=== PATIENT | female | born 1955 | race Caucasian/White ===

== ENCOUNTER 2020-02-23 15:11 | Outpatient (CLI) | payer BC, SELFPAY ==
--- NOTE | ~2020-02-23 | MM_ITS ---
EXAMINATION: MM screening [facility] BI w [facility] HISTORY: Screening mammogram TECHNIQUE: Craniocaudal and mediolateral oblique 3-D tomosynthesis images were obtained and synthetic 2-D images were generated. CAD analysis was submitted and interpreted. COMPARISON: 01/28/2019, 12/18/2017, 12/11/2016 BREAST PARENCHYMAL COMPOSITION: There are scattered areas of fibroglandular density. FINDINGS: There is no evidence of suspicious mass, calcification, or architectural distortion to sugg est malignancy in either breast. There has been no suspicious interval change. IMPRESSION: 1. No mammographic evidence of malignancy. 2. Recommend routine screening mammography in one year. BI-RADS Category 1: Negative Reviewed, dictated and finalized at location A.
== END 2020-02-23 15:12 | disposition home or self-care (01) ==
LOC: ANHIMG 15:15
PROVIDERS: PCP Family Medicine; Visit Provider Obstetrics & Gynecology
DX: Z12.31 Encounter for screening mammogram for malignant neoplasm of breast (principal)
CPT/HCPCS: 77063; 77067

== ENCOUNTER → 2020-04-27 10:17 | Outpatient (CLI) | payer BC, SELFPAY ==
--- NOTE | ~2020-04-27 | DEXA_ITS ---
Bone Density Report Name: Heather Hernandez Age: 64 Sex: Female Ethnicity: White Date of : 1955 Indication: osteopenia; height loss; hysterectomy; postmenopausal Referring Provider: JUDITH OBREGON Study: Bone densitometry was performed. Exam Date: April 27, 2020 Accession number: [id number] Bone Density: Region BMD T-score Z-score Classification AP Spine (L1-L4) 0.874 -1.6 0.1 Osteopenia Femoral Neck (Left) 0.627 -2.0 -0.5 Osteopenia Total Hip (Left) 0.844 -0.8 0.4 Normal Femoral Neck (Right) 0.607 -2.2 -0.7 Osteopenia Total Hip (Right) 0.839 -0.8 0.3 Normal Total Hip Mean 0.842 -0.8 0.4 Normal World Health Organization criteria for BMD impression classify patients as: Normal (T-score at or above -1.0), Osteopenia (T-score between -1.0 and -2.5), or Osteoporosis (T-score at or below -2.5). 10-year Fracture Risk(1): Major Osteoporotic Fracture 11% Hip Fracture 1.7% Reported Risk Factors: [place] (), Neck BMD=0.607, BMI=26.4 (1) FRAX(R) Version 3.08. Fracture probability calculated for an untreated patient. Fracture probability may be lower if the patient has received treatment. Previous Exams: Region Exam Age BMD T-score BMD Change BMD Change Date g/cm2 vs Baseline vs Previous AP Spine(L1-L4) 04/27/2020 64 0.874 -1.6 -0.020 -0.020 04/10/2018 62 0.894 -1.4 Total Hip(Left) 04/27/2020 64 0.844 -0.8 -0.038* -0.038* 04/10/2018 62 0.882 -0.5 Total Hip(Right) 04/27/2020 64 0.839 -0.8 -0.032* -0.032* 04/10/2018 62 0.871 -0.6 *Denotes significance at 95% confidence level, LSC for AP Spine = 0.022 g/cm2, LSC for Total Hip = 0.027 g/cm2 Clinical Information Provided by Patient: Has used the following medications: Vitamin D Has the following medical conditions: Hysterectomy Patient maximum height was 68 Menopause Age: 36 Does not regularly consume dairy products Drinks caffeinated beverages Onset of menses at age 16 Number of children 3 Impression: The patient has low bone mass, based on the Right Femoral Neck T-score. The patient has an estimated ten-year risk of hip fracture of 1.7% and an estimated ten-year risk of major fracture of 11%, based on the WHO FRAX algorithm. The BMD for the Total Hip(Left) decreased, changing by -0.038 since the last DXA exam. The BMD for the Total Hip(Right) decreased, changing by -0.032 since the last DXA exam. Discussion:
== END ==
PROVIDERS: PCP Family Medicine; Visit Provider Obstetrics & Gynecology
DX: M85.852 Other specified disorders of bone density and structure, left thigh (principal); M85.851 Other specified disorders of bone density and structure, right thigh
CPT/HCPCS: 77080

== ENCOUNTER → 2020-10-26 02:55 | Outpatient (CLI) | payer BC, SELFPAY ==
[2020-10-26 18:15] LABS: SARS-CoV-2 RNA PCR Negative
== END ==
PROVIDERS: PCP Family Medicine; Visit Provider Internal Medicine Cardiovascular Disease
DX: Z01.812 Encounter for preprocedural laboratory examination (principal); Z20.822 Contact with and (suspected) exposure to COVID-19
CPT/HCPCS: C9803; U0003; U0005

== ENCOUNTER 2020-10-29 01:42 | Day surgery (SDC) | payer BC, SELFPAY ==
[2020-10-29] VITALS (15 sets, daily range): BP systolic 96–131; BP diastolic 51–80; PULSE 58–99; RESP 10–23; TEMP 36.4; O2SAT 97–100; BMI 25.4
--- NOTE | 2020-10-29 07:00 | ECG_ITS ---
Measurements Intervals [place] Rate: 58 P: CA: 0 QRS: -44 QRSD: 137 T: 125 QT: 469 QTc: 463 Interpretive Statements ATRIAL FIBRILLATION WITH SLOW VENTRICULAR RESPONSE LEFT AXIS DEVIATION LEFT BUNDLE BRANCH BLOCK BASELINE ARTIFACT- V5 ABNORMAL ECG Electronically Signed On 10-29-2020 7:25:11 CDT by Ace Santos D.O.
[2020-10-29 07:42] LABS: Basophils Percent Auto 0.9 % (0.2-1.2); Eosinophils Absolute Auto 0.1 K/mm3 (0-0.3); Eosinophils Percent Auto 2.1 % (0-4.4); Hematocrit 45.7 % (37.0-47.0); Immature Granulocyte Absolute 0.02 K/mm3 (0.00-0.031); Immature Granulocyte Percent A 0.4 % (0-0.5); Lymphocytes Absolute Auto 1.22 K/mm3 (0.9-3.2); Mean Corpuscular HGB Conc 32.8 g/dl (32-36); Mean Corpuscular Hemoglobin 31.6 pg (26-34); Mean Corpuscular Volume 96.2 fl (80-100); Mean Platelet Volume 9.7 fl (7.4-10.4); Monocytes Absolute Auto 0.7 K/mm3 (0.1-0.6); Monocytes Percent Auto 13.9 % (2.6-8.5); Neutrophils Absolute Auto 2.7 K/mm3 (1.3-6.7); Neutrophils Percent Auto 56.7 % (45.5-73.1); Platelet Count Result 263 k/mm3 (150-375); Red Blood Count 4.75 M/mm3 (4.2-5.4); Red Cell Distribution Width 13.4 % (11.5-14.5); White Blood Count 4.7 K/mm3 (4.5-10.0)
[2020-10-29 07:51] LABS: Anion Gap 5 mmol/L (8-16); Blood Urea Nitrogen 13 mg/dL (7-17); Calcium 9.4 mg/dL (8.4-10.2); Carbon Dioxide 32 mmol/L (22-30); Chloride 101 mmol/L (98-107); Estimated Glomerular Filt Rate > 60; Glucose 99 mg/dL (65-105); Magnesium 2.1 mg/dL (1.6-2.3); Potassium 4.2 mmol/L (3.4-5.0); Sodium 138 mmol/L (137-145)
--- NOTE | 2020-10-29 08:58 | WPDMODSED ---
Moderate Sedation Note-Pt Data Patient Data Diagnosis: Atrial fibrillation Present Complaint: None Procedure to be performed/Plan: Transesophageal echocardiographic guidance with elective electrical cardioversion Allergies Allergy/AdvReac Type Severity Reaction Status Date / Time ampicillin Allergy Unknown Unknown Verified 03/22/20 10:36 cephalexin Allergy Unknown Unknown Verified 03/22/20 10:36 ciprofloxacin Allergy Unknown Unknown Verified 03/22/20 10:36 Penicillins Allergy Unknown Unknown Verified 03/22/20 10:36 Sulfa (Sulfonamide Allergy Unknown Unknown Verified 03/22/20 10:36 Antibiotics) sulfanilamide Allergy Unknown Unknown Verified 03/22/20 10:36 CEPHALEXIN MONOHYDRATE Allergy Unknown Unknown Uncoded 03/22/20 10:36 Home Medications Medication Instructions Recorded Confirmed Type duloxetine 60 mg capsule,delayed See Rx Instructions .ROUTE 03/12/20 10/29/20 Rx release .COMPLEX #90 cap atorvastatin 40 mg tablet 40 mg PO DAILY #90 tablet 07/24/20 10/29/20 Rx metoprolol tartrate 50 mg PO Q12H 10/29/20 10/29/20 History rivaroxaban [Xarelto] 20 mg PO QPM 10/29/20 10/29/20 History Current Medications: Active Medications Sodium Chloride (Normal Saline Iv) 1,000 mls @ 30 mls/hr IV CONT .Q24H MORAIMA Sedation/Anesthesia: No previous sedation/anesthesia problems (including family history). [facility] Past Medical History Medical History Atrial fibrillation CAD (coronary artery disease) LBBB (left bundle branch block) Family History Family History Mother Hypertension Family history of diabetes mellitus in first degree relative Family history of coronary artery disease Grandparent Cerebrovascular accident Other Family history of malignant neoplasm Social History Social History Smoking status: Never smoker Alcohol intake: never Mod Sed Physical Exam Physical Exam Pre Procedural Exam: Normal: Appearance, Eyes, Ears, Nose, Neck (Supple, normal range of motion), Throat (Posterior hypopharynx clear nonerythematous), Airway (Normal anatomy, no obstruction), Lungs (Clear to auscultation bilaterally), Heart Size, Heart Rate, Neuro Exam, Abdomen, Liver, Kidneys, Extremities and Skin and Variation: Heart Rhythm (Irregular irregular) Hours since solid foods: 12 Hours since liquid intake: 12 Internal Medicine - PN: Obj Da Vital Signs Vital Signs: Vital Signs - 24 hr 10/29/20 07:49 Temperature 36.4 C L Pulse Rate 73 Respiratory Rate 17 Blood Pressure 120/80 Pulse Oximetry 100 Meds/Results Medications: Active Medications Generic Name Dose Route Start Last Admin Trade Name Freq PRN Reason Stop Dose Admin Sodium Chloride 1,000 mls @ 30 mls/hr 10/29/20 07:00 Normal Saline Iv IV CONT .Q24H MORAIMA Labs CBC & Chem 7: 10/29/20 07:30 10/29/20 07:30 Labs: Laboratory Results - last 24 hr 10/29/20 10/29/20 07:30 07:30 WBC 4.7 RBC 4.75 Hgb 15.0 Hct 45.7 MCV 96.2 MCH 31.6 MCHC 32.8 RDW 13.4 Plt Count 263 MPV 9.7 Immature Gran % (Auto) 0.4 Neut % (Auto) 56.7 Lymph % (Auto) 26.0 Stanley % (Auto) 13.9 H Eos % (Auto) 2.1 Baso % (Auto) 0.9 Lymph # (Auto) 1.22 Stanley # (Auto) 0.7 H Eos # (Auto) 0.1 Baso # (Auto) 0.0 Abs Immat Gran (auto) 0.02 Absolute Neuts (auto) 2.7 Absolute Nucleated RBC 0.0 Nucleated RBC % 0.0 Sodium 138 Potassium 4.2 Chloride 101 Carbon Dioxide 32 H Anion Gap 5 L BUN 13 Creatinine 0.90 Estim Creat Clear Calc Not Reportable Estimated GFR > 60 Glucose 99 Calcium 9.4 Magnesium 2.1 ASA Classification/Sedation ASA Classification/Sedation ASA Class: III Emergent: No Risks: Risks, benefits and alternatives explained and patient/family accepted plan for sedation. Patient re-evaluated immediate
--- NOTE | 2020-10-29 09:07 | WPDTECDV ---
JEF with Cardioversion Date of procedure: 10/29/20 Procedure Type: Transesophageal echocardiogram guided elective electrical cardioversion Diagnosis: Atrial fibrillation Indications: Atrial fibrillation Description of Procedure: Brief history present illness: Patient is a pleasant 65-year-old female with a history of CAD, LBBB, dyslipidemia found to have new onset atrial fibrillation with rapid ventricular response referred for transesophageal echocardiogram-guided elective electrical cardioversion in attempt to restore sinus rhythm. Procedure in detail: After verbal and written informed consent was obtained the patient risks, benefits, and alternatives explained in detail the patient agreed to proceed with the plan of care as outlined above. Patient was evaluated at bedside in the [facility] procedure room. On examination, neck was supple with normal range of motion, no restrictions to opening of the oral cavity, jaw angle and posterior hypopharynx was clear. Lungs were clear to auscultation. Patient was placed in appropriate 30 to 45 degree angle in a supine, slight left lateral decubitus position. Patient was monitored throughout the study with telemetry, oxygen saturation, end-tidal CO2 monitoring, blood pressure, heart rate, and respirations. Anterior and posterior defibrillator pads placed in the appropriate positions. The posterior hypopharynx was then locally anesthetized using repeated administration of Hurricaine spray as well as gargled viscous lidocaine. After local anesthetic of the posterior hypopharynx was achieved and the oral bite block placed, moderate sedation was administered. Through the oral bite block, the transesophageal echocardiogram probe was advanced into the posterior hypopharynx and into the esophagus easily and without complication. Multiple, multiplanar echocardiographic images were obtained in multiple standard re-projections. Pulsed wave, continuous-wave, and color-flow Doppler were utilized in conjunction with this study. At the conclusion of the study, the transesophageal echocardiogram probe was removed easily and without complication. Patient tolerated the procedure well without difficulty. Patient was in atrial fibrillation throughout the study. Sedation: Moderate Sedation/Anesthesia administration: Patient denied previous intolerance or complications with anesthesia/sedation. Please see sedation note for documentation of the pre-procedure physical examination. As noted above, after adequate local anesthesia of the posterior hypopharynx was achieved, a total of mg intravenous Versed and a total of mcg intravenous Fentanyl in multiple divided doses was utilized for moderate sedation. Sedation start time was and end time was for a total of minutes [id number] intra-procedure time. Sedation was administered by a qualified observer RN under my supervision with intra-procedure [id number] observation and management throughout the entirety of the procedure. There were no other issues or complications and patient tolerated the procedure well and sedation protocol well and I was present for the entirety. Findings: FINDINGS: LEFT VENTRICLE: Size is normal. Mild concentric left ventricular hypertrophy. Mild left ventricular systolic dysfunction with paradoxical septal wall motion secondary to bundle branch block with visually estimated ejection fraction of 45-50%. RIGHT VENTRICLE: Size and systolic function were normal. LEFT ATRIUM: Mild to moderate enlargement. RIGHT ATRIUM: Normal size. INTERATRIAL SEPTUM: Interatrial septum is anatomically normal without evidence of shunt with color-flow Doppler nor with injection of agitated saline. MITRAL VALVE: Mitral valve is anatomically normal although mildly thickened with preserved leaflet excursion and mild regurgitation with at least 2 separate regurgitant jets. AORTIC VALVE: The aortic valve was an anatomically normal 3 leaflet structure with donis
--- NOTE | 2020-10-29 10:24 | ECG_ITS ---
Measurements Intervals [place] Rate: 76 P: [place]: 0 QRS: -47 QRSD: 137 T: 138 QT: 465 QTc: 526 Interpretive Statements SINUS OR ECTOPIC ATRIAL RHYTHM WITH FIRST DEGREE AV BLOCK ATRIAL TRIPLET, ATRIAL COUPLET AND ATRIAL PREMATURE COMPLEXES LEFT AXIS DEVIATION LEFT BUNDLE BRANCH BLOCK ABNORMAL ECG Electronically Signed On 10-29-2020 12:03:11 CDT by Ace Santos D.O.
== END 2020-10-29 12:00 | disposition home or self-care (01) ==
PROVIDERS: PCP Family Medicine; Visit Provider Internal Medicine Cardiovascular Disease
PROC: (CPT 93312; principal; 2020-10-29 08:30)
PROC: 5A2204Z Restoration of Cardiac Rhythm, Single (ICD-10-PCS; 2020-10-29 08:30)
DX: I48.91 Unspecified atrial fibrillation (principal); I25.10 Atherosclerotic heart disease of native coronary artery without angina pectoris; I44.7 Left bundle-branch block, unspecified; I44.1 Atrioventricular block, second degree; I34.0 Nonrheumatic mitral (valve) insufficiency; I35.1 Nonrheumatic aortic (valve) insufficiency; I36.1 Nonrheumatic tricuspid (valve) insufficiency; E78.5 Hyperlipidemia, unspecified; Z79.01 Long term (current) use of anticoagulants
CPT/HCPCS: 36415; 80048; 83735; 85025; 92960; 93005; 93312; 93320; 93325; J2250; J2310; J3010; J7040

== ENCOUNTER 2021-03-05 14:42 | Outpatient (CLI) | payer BC, SELFPAY ==
--- NOTE | ~2021-03-05 | MM_ITS ---
EXAMINATION: MM screening [facility] BI w javier HISTORY: Screening TECHNIQUE: Craniocaudal and mediolateral oblique 3-D tomosynthesis images were obtained and synthetic 2-D images were generated. CAD analysis was submitted and interpreted. COMPARISON: Comparison to multiple prior studies sequentially, with oldest reviewed study dated 11/16. BREAST PARENCHYMAL COMPOSITION: There are scattered areas of fibroglandular density. FINDINGS: There is no evidence of suspicious mass, calcification, or architectural distortion to sugg est malignancy in either breast. There has been no suspicious interval change. IMPRESSION: 1. No mammographic evidence of malignancy. 2. Recommend routine screening mammography in one year. BI-RADS Category 1: Negative Reviewed, dictated and finalized at location A.
== END 2021-03-05 14:43 | disposition home or self-care (01) ==
LOC: ANHIMG 14:45
PROVIDERS: PCP Family Medicine; Visit Provider Obstetrics & Gynecology
DX: Z12.31 Encounter for screening mammogram for malignant neoplasm of breast (principal)
CPT/HCPCS: 77063; 77067

== ENCOUNTER 2021-07-29 13:44 | Outpatient (CLI) | payer MEDICARE, SELFPAY ==
--- NOTE | ~2021-07-29 | CT_ITS ---
EXAMINATION: CT brain wo con DATE: 07/29/2021 14:09 INDICATION: Head injury. TECHNIQUE: Computed tomography (CT) of the head was performed without intravenous contrast. The mA wa s adjusted according to patient size. Iterative reconstruction technique was employed. The dose-lengt h product was 605.33 mGy-cm. COMPARISON: None FINDINGS: There is no intracranial hemorrhage, acute infarction, or abnormal intracranial mass lesion . The ventricles are normal in size. There is mild mucosal thickening in the paranasal sinuses. The m astoid air cells are normal. There are likely changes of ocular lens replacement surgeries. IMPRESSION: 1. Normal brain. Reviewed, dictated and finalized at location A. ESTRA MUSICIAN IMPRESSION: 1. Normal brain.
== END 2021-07-29 13:45 | disposition home or self-care (01) ==
PROVIDERS: PCP Family Medicine; Visit Provider Internal Medicine Cardiovascular Disease
DX: S00.93XA Contusion of unspecified part of head, initial encounter (principal)
CPT/HCPCS: 70450

== ENCOUNTER 2022-01-06 15:48 | Outpatient (CLI) | payer MEDICARE, SELFPAY ==
--- NOTE | ~2022-01-06 | XR_ITS ---
EXAMINATION: XR chest 2V 01/06/2022 16:05 INDICATION: Cough for 2 months PROCEDURE: 2 view chest COMPARISON: 05/21/2016 FINDINGS: The lungs are clear. The cardiomediastinal silhouette is within normal limits. There are no pleural effusions. There is no pneumothorax suspected. IMPRESSION: 1: NO ACUTE CARDIOPULMONARY DISEASE. Reviewed, dictated and finalized at location B.
== END 2022-01-06 15:49 | disposition home or self-care (01) ==
PROVIDERS: PCP Family Medicine; Visit Provider Nurse Practitioner Family
DX: R05.9 Cough, unspecified (principal)
CPT/HCPCS: 71046

== ENCOUNTER → 2022-02-13 14:30 | Outpatient (CLI) | payer MEDICARE, SELFPAY ==
--- NOTE | ~2022-02-13 | XR_ITS ---
XR cervical spine min 6V DATE: 02/13/2022 15:01 INDICATION: Fall 3 months ago. Neck pain. TECHNIQUE: Flexion and extension lateral views. AP, open-mouth and neutral lateral views. Efrain glass COMPARISON: None FINDINGS: C1 and C2 are normally aligned and the odontoid process is intact. There is minimal levoscoliosis of the cervical spine. Cervical curvature is intact on lateral view. No fracture or dislocation or locked facet or prevertebral soft tissue swelling. There is moderate degenerative disc disease at C4-5. There is severe degenerative disc disease at C5-6 and C6-7. No instability is evident on flexion or extension. IMPRESSION: Moderate degenerative disc disease at C4-5 and severe degenerative disease at C5-6 and C6 -7 No fracture or dislocation or cervical instability is detected Reviewed, dictated and finalized at location B. IMPRESSION: Moderate degenerative disc disease at C4-5 and severe degenerative disease at C5-6 and C6-7 No fracture or dislocation or cervical instability is detected
--- NOTE | ~2022-02-13 | XR_ITS ---
XR hip LT min 3V w AP pelvis DATE: 02/13/2022 15:01 INDICATION: Left hip pain after fall 3 months ago TECHNIQUE: AP and lateral views of left hip. AP pelvis. COMPARISON: None FINDINGS: An anchor devices are noted at the left and right pubic bones. Normal alignment at the pubic symphysis and sacroiliac joints. No pelvic fracture or bone destruction . Hip joint spaces appear symmetric and relatively well preserved. No fracture or dislocation, avascu lar necrosis or bone destruction of the left hip. Degenerative disc disease the lower lumbar spine, especially L4-5. IMPRESSION: Lumbar degenerative disc disease Postoperative change of left and right pubic bones No pelvic or left hip fracture or dislocation Reviewed, dictated and finalized at location B.
== END ==
PROVIDERS: PCP Family Medicine; Visit Provider Nurse Practitioner Family
DX: M47.812 Spondylosis without myelopathy or radiculopathy, cervical region (principal); M47.816 Spondylosis without myelopathy or radiculopathy, lumbar region; M25.552 Pain in left hip
CPT/HCPCS: 72052; 73502

== ENCOUNTER 2022-04-10 15:37 | Outpatient (CLI) | payer MEDICARE, SELFPAY ==
--- NOTE | ~2022-04-10 | XR_ITS ---
EXAMINATION: XR chest 2V 04/10/2022 15:48 INDICATION: Shortness of breath. Respiratory infection. PROCEDURE: 2 view chest COMPARISON: 01/06/2022 FINDINGS: The lungs are clear. The cardiomediastinal silhouette is within normal limits. There are no pleural effusions. There is no pneumothorax suspected. IMPRESSION: 1: NO ACUTE CARDIOPULMONARY DISEASE. Reviewed, dictated and finalized at location A. 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
== END 2022-04-10 15:38 | disposition home or self-care (01) ==
LOC: ANHIMG 15:39
PROVIDERS: PCP Family Medicine; Visit Provider Family Medicine
DX: R06.02 Shortness of breath (principal)
CPT/HCPCS: 71046

== ENCOUNTER → 2022-04-14 14:38 | Outpatient (CLI) | payer MEDICARE, SELFPAY ==
--- NOTE | ~2022-04-14 | MM_ITS ---
EXAMINATION: MM screening [facility] BI w javier HISTORY: Screening mammogram TECHNIQUE: Craniocaudal and mediolateral oblique 3-D tomosynthesis images were obtained and synthetic 2-D images were generated. CAD analysis was submitted and interpreted. COMPARISON: 03/05/2021, 02/23/2020, 01/28/2019 bilateral screening mammogram examinations BREAST PARENCHYMAL COMPOSITION: There are scattered areas of fibroglandular density. FINDINGS: There is no evidence of suspicious mass, calcification, or architectural distortion to sugg est malignancy in either breast. There has been no suspicious interval change. IMPRESSION: 1. No mammographic evidence of malignancy. 2. Recommend routine screening mammography in one year. BI-RADS Category 1: Negative Reviewed, dictated and finalized at location A. D STAFF
== END ==
PROVIDERS: PCP Family Medicine; Visit Provider Nurse Practitioner Family
DX: Z12.31 Encounter for screening mammogram for malignant neoplasm of breast (principal)
CPT/HCPCS: 77063; 77067

== ENCOUNTER → 2022-09-19 15:00 | Outpatient (CLI) | payer MEDICARE, SELFPAY ==
--- NOTE | ~2022-09-19 | US_ITS ---
EXAMINATION: US venous doppler [facility] DATE: 09/19/2022 15:26 INDICATION: Lower limb pain and swelling TECHNIQUE: Grayscale ultrasound images without and with compression and Doppler ultrasound images of the bilateral lower extremity veins were obtained. COMPARISON: None. FINDINGS: The visualized portions of right common femoral vein, profunda (deep) femoral vein, femoral vein, pop liteal vein, posterior tibial veins, peroneal veins, gastrocnemius vein and greater saphenous vein ou tflow are patent. The visualized portions of left common femoral vein, profunda femoral vein, femoral vein, popliteal v ein, posterior tibial veins, peroneal veins, gastrocnemius vein and greater saphenous vein outflow ar e patent. IMPRESSION: 1. No deep venous thrombosis in either lower limb. Reviewed, dictated and finalized at location A.
== END ==
PROVIDERS: PCP Family Medicine; Visit Provider Internal Medicine Cardiovascular Disease
DX: R06.02 Shortness of breath (principal); M79.604 Pain in right leg; M79.605 Pain in left leg
CPT/HCPCS: 93970

== ENCOUNTER 2022-09-22 09:28 | Day surgery (SDC) | payer MEDICARE, SELFPAY ==
[2022-09-19 12:03] VITALS: BMI 33.7
[2022-09-22] VITALS (10 sets, daily range): BP systolic 98–140; BP diastolic 56–74; PULSE 65–82; RESP 14–20; TEMP 36.9; O2SAT 97–100; BMI 34.7
--- NOTE | 2022-09-22 09:30 | ECG_ITS ---
Measurements Intervals [place] Rate: 80 P: -27 VT: 223 QRS: 145 QRSD: 152 T: 101 QT: 463 QTc: 537 Interpretive Statements ELECTRONIC VENTRICULAR PACEMAKER VENTRICULAR PREMATURE COMPLEX BASELINE ARTIFACT- I, II, III, AVR, AVL, AVF, V4 NO FURTHER INTERPRETATION IS POSSIBLE ATYPICAL ECG COMPARED TO ECG 10/29/2020 10:31:30 ELECTRONIC VENTRICULAR RPACEMAKER NOW PRESENT Electronically Signed On 09-22-2022 10:32:18 CDT by Ace Santos D.O.
--- NOTE | 2022-09-22 09:30 | ECG_ITS ---
Measurements Intervals [place] Rate: 62 P: -33 PA: 194 QRS: 150 QRSD: 160 T: 91 QT: 490 QTc: 500 Interpretive Statements ELECTRONIC ATRIAL PACEMAKER WITH INHIBITION ELECTRONIC VENTRICULAR PACEMAKER NO FURTHER INTERPRETATION IS POSSIBLE ATYPICAL ECG COMPARED TO ECG 09/22/2022 09:52:22 NO SIGNIFICANT CHANGES Electronically Signed On 09-22-2022 12:01:39 CDT by Ace Santos D.O.
[2022-09-22 10:37] LABS: Anion Gap 5 mmol/L (8-16); Blood Urea Nitrogen 10 mg/dL (7-17); Calcium 8.8 mg/dL (8.4-10.2); Carbon Dioxide 30 mmol/L (22-30); Chloride 104 mmol/L (98-107); Estimated CRCL calculation 82 ml/min; Estimated Glomerular Filt Rate > 60; Glucose 91 mg/dL (65-110); Magnesium 2.2 mg/dL (1.6-2.3); Sodium 139 mmol/L (137-145)
--- NOTE | 2022-09-22 11:00 | SUR.PREOP ---
Rep at bedside for device check. Disscussed with Dr. Forte
--- NOTE | 2022-09-22 11:05 | WPDHPUPDATE1 ---
History and Physical Update Update Date/Time: 09/22/22 11:05 History and Physical has been reviewed, including an updated exam of the patient. There are NO changes in the patient's condition. Risks, benefits, and alternatives have been discussed and questions answered. Patient agrees to proceed with procedure.
--- NOTE | 2022-09-22 11:11 | WPDMODSED ---
Moderate Sedation Note-Pt Data Patient Data Diagnosis: Persistent atrial fibrillation Present Complaint: None Procedure to be performed/Plan: Elective electrical cardioversion Allergies Allergy/AdvReac Type Severity Reaction Status Date / Time ampicillin Allergy Unknown Unknown Verified 09/19/22 12:22 cephalexin Allergy Unknown Unknown Verified 09/19/22 12:22 ciprofloxacin Allergy Unknown Unknown Verified 09/19/22 12:22 Penicillins Allergy Unknown Unknown Verified 09/19/22 12:22 Sulfa (Sulfonamide Allergy Unknown Unknown Verified 09/19/22 12:22 Antibiotics) sulfanilamide Allergy Unknown Unknown Verified 09/19/22 12:22 metoprolol AdvReac Intermediate lethargic Verified 09/19/22 12:22 CEPHALEXIN MONOHYDRATE Allergy Unknown Unknown Uncoded 04/10/22 14:48 Home Medications Medication Instructions Recorded Confirmed Type rivaroxaban 20 mg tablet (Xarelto) 20 mg PO QPM 10/29/20 09/22/22 History calcium carb 300 mg-D3 800 1 tablet PO DAILY 02/13/22 09/22/22 History unit-mag ox 25 mg-advertising copywriter 0.5 mg-jarrett-Zn tablet (Caltrate + D3 Plus Minerals) carvedilol 3.125 mg tablet (Coreg) 6.25 mg PO Q12H 04/10/22 09/22/22 History amiodarone 400 mg tablet 400 mg PO BID 09/19/22 09/22/22 History atorvastatin 40 mg tablet 40 mg PO DAILY 09/19/22 09/22/22 History Current Medications: Active Medications Sodium Chloride (Normal Saline Iv) 1,000 mls @ 30 mls/hr IV CONT .Q24H MORAIMA Sedation/Anesthesia: No previous sedation/anesthesia problems (including family history). [facility] Past Medical History Medical History Adult BMI 31.0-31.9 kg/sq m Atrial fibrillation BMI 26.0-26.9,adult BMI 27.0-27.9,adult CAD (coronary artery disease) LBBB (left bundle branch block) Overweight with body mass index (BMI) of 28 to 28.9 in adult Surgical History Surgical History Hx of cataract surgery Apr 2021 Family History Family History Mother Hypertension Family history of diabetes mellitus in first degree relative Family history of coronary artery disease Atrial fibrillation Grandparent Cerebrovascular accident Father Depression Sibling Atrial fibrillation Other Family history of malignant neoplasm Social History Social History Smoking status: Never smoker Second hand tobacco smoke exposure: No Alcohol intake: former Alcohol use details: once per year Substance use: never Substance use type: does not use Lack of Transportation: No Lack of Food: Never True Current Housing: I Have Housing Concerned About Future Housing: No Difficulty Paying Gas/Electric Bills: No Difficulty Paying for Meds: No Currently Unemployed: No Education: Associate Degree Difficulty w/ Childcare or Family Care: No Living arrangements: with family Occupation/Education: retired 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 Gender identity (if verbalized by the patient): Female Spiritual care concerns: No Mod Sed Physical Exam Physical Exam Pre Procedural Exam: Normal: Appearance, Eyes, Ears, Nose, Neck (Supple, normal range of motion), Throat (Posterior hypopharynx clear, nonerythematous), Airway (Normal anatomy, no obstruction), Lungs (Clear to auscultation bilaterally no rales or wheezes), Heart Size, Heart Rate (Regular rhythm), Heart Rhythm, Neuro Exam, Abdomen, Liver, Extremities (Palpable left anterior chest wall subcutaneous device) and Skin Hours since solid foods: 12 Hours since liquid intake: 12 Mallampati Classification: class III Internal Medicine - PN: Obj Da Vital Signs Vital Signs: Vital Signs - 24 hr 09/22/22 10:37 Temperature 36.9 C Pulse Rate 80 Respiratory Rate 19 Blood Pressure 129/74 Pulse Oximetry 100 Oxygen Delivery Room Air
--- NOTE | 2022-09-22 11:13 | WPDCARDVER ---
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 Persistence of atrial fibrillation with biventricular pacing was confirmed at bedside by device interrogation with device medical collections representative. Procedure in detail: After verbal and written informed consent was obtained the patient risks, benefits, and alternatives explained in detail the patient agreed to proceed with the plan of care as outlined above. Patient was evaluated at bedside in the [facility] procedure room. On examination, neck was supple with normal range of motion, no restrictions to opening of the oral cavity, jaw angle and posterior hypopharynx was clear. Lungs were clear to auscultation. Patient was placed in appropriate 30 to 45 degree angle in a supine position. Patient was monitored throughout the study with telemetry, oxygen saturation, end-tidal CO2 monitoring, blood pressure, heart rate, and respirations. Anterior and posterior defibrillator pads placed in the appropriate positions. After confirmation of adequate sedation electrical cardioversion was carried out without complication. Patient tolerated the procedure well without difficulty. Sedation: Moderate Sedation/Anesthesia administration: Patient denied previous intolerance or complications with anesthesia/sedation. Please see sedation note for documentation of the pre-procedure physical examination. A total of 3mg intravenous Versed and a total of 50mcg intravenous Fentanyl in multiple divided doses was utilized for moderate sedation. Sedation start time was 1119 and end time was 1136 for a total of 17 minutes [id number] intra-procedure time. Sedation was administered by a qualified observer lEaina Rodriguez RN under my supervision with intra-procedure [id number] observation and management throughout the entirety of the procedure. There were no other issues or complications and patient tolerated the procedure well and sedation protocol well and I was present for the entirety. Findings: Elective electrical cardioversion: After confirmation of adequate sedation and persistence of atrial fibrillation as also confirmed at bedside with pacemaker interrogation with device medical collections representative, 200 joules synched biphasic energy x1 was delivered with immediate sabianist of sinus rhythm evidence by atrial and biventricular pacing. Twelve lead EKG was obtained postprocedure confirming atrial paced and biventricular electronic paced rhythm. Post cardioversion device interrogation showed normal device function. Pacing set to 70 beats per minute.. Complications: None Conclusion: Successful sabianist of sinus rhythm status post 200 joules synched biphasic energy x1. Electronic atrial paced and electronic biventricular paced rhythm cardioversion and confirmed by device interrogation. Recommendations: Continue current medical therapy. Continue systemic anticoagulation without interruption for at least 30 days or until otherwise advised.
== END 2022-09-22 12:41 | disposition home or self-care (01) ==
PROVIDERS: PCP Family Medicine; Visit Provider Internal Medicine Cardiovascular Disease
PROC: 5A2204Z Restoration of Cardiac Rhythm, Single (ICD-10-PCS; principal; 2022-09-22 11:00)
DX: I48.19 Other persistent atrial fibrillation (principal); I25.10 Atherosclerotic heart disease of native coronary artery without angina pectoris; I44.7 Left bundle-branch block, unspecified
CPT/HCPCS: 36415; 80048; 83735; 92960; J2250; J3010; J7030

== ENCOUNTER → 2022-10-23 08:15 | Outpatient (CLI) | payer MEDICARE, SELFPAY ==
--- NOTE | ~2022-10-23 | US_ITS ---
Abdominal Sonogram: Real-time sonographic imaging of the abdomen was performed. Clinical History: Abdominal pain Findings: The liver appears normal with no evidence of mass lesion or bile duct dilatation. Main por celestine vein demonstrates normal direction of flow. The spleen is normal in size without evidence of foca l lesion. The gallbladder is well distended, and appears normal with no evidence of gallstone or wal l thickening. The common bile duct measures 3 mm. The visualized pancreas, aorta, and IVC are unrema rkable. The right kidney measures 11.2 cm in length and the left kidney measures 11.3 cm. There is no hydronephrosis or renal calculus. Impression: Unremarkable abdominal ultrasound. Reviewed, dictated and finalized at location . Impression: Unremarkable abdominal ultrasound.
== END ==
PROVIDERS: PCP Nurse Practitioner Family; Visit Provider Nurse Practitioner Family
DX: R10.13 Epigastric pain (principal)
CPT/HCPCS: 76700

== ENCOUNTER 2022-11-03 08:24 | Outpatient (CLI) | payer MEDICARE, SELFPAY ==
--- NOTE | ~2022-11-03 | CT_ITS ---
EXAMINATION: CT abdomen w con DATE: 11/03/2022 08:56 INDICATION: Epigastric pain TECHNIQUE: Computed tomography (CT) of the abdomen and pelvis was performed with 100 cc Omnipaque 350 intravenous contrast. The dose-length product was 532.95 mGy-cm. Automated exposure control and iter ative reconstruction technique were employed. COMPARISON: CT dated 01/18/2019 FINDINGS: There is dependent atelectasis. Cardiomegaly. No significant pleural or pericardial effusio n. Nonobstructive bowel pattern. No significant vascular abnormality. No lymphadenopathy. The liver, spleen, pancreas, adrenal glands and kidneys are unremarkable. Gallbladder is present. Small fat-cont aining umbilical hernia. There is mild-moderate lower thoracic and lumbar spondylosis. No free air or free fluid. IMPRESSION: 1. No acute abdominal abnormality. Reviewed, dictated and finalized at location []
[2022-11-03 08:48] LABS: Estimated Glomerular Filt Rate 55
== END 2022-11-03 08:25 | disposition home or self-care (01) ==
PROVIDERS: PCP Nurse Practitioner Family; Visit Provider Nurse Practitioner Family
DX: R10.13 Epigastric pain (principal)
CPT/HCPCS: 74160; Q9967

== ENCOUNTER 2022-11-10 15:18 | Outpatient (CLI) | payer MEDICARE, SELFPAY ==
--- NOTE | ~2022-11-10 | XR_ITS ---
EXAMINATION: XR chest 2V Exam Date/Time: 11/10/2022 15:35 CDT HISTORY: SHORTNESS OF BREATH UPON EXERTION Comparison: 04/10/2022. RESULT: Lines, tubes, and devices: Left chest pacer with intact leads. Lungs and pleura: Clear. Cardiomediastinal silhouette: Stable. Calcified hilar nodes. Other: No acute osseous or upper abdominal finding. IMPRESSION: No acute cardiopulmonary process. Reviewed, dictated and finalized at location K.
== END 2022-11-10 15:19 | disposition home or self-care (01) ==
PROVIDERS: PCP Nurse Practitioner Family; Visit Provider Nurse Practitioner Adult Health
DX: R06.02 Shortness of breath (principal)
CPT/HCPCS: 71046

== ENCOUNTER 2023-01-23 02:30 | Day surgery (SDC) | payer MEDICARE, SELFPAY ==
[2023-01-15 12:58] VITALS: BMI 34.9
--- NOTE | 2023-01-22 13:45 | PM.HPGS ---
History of Present Illness History of Present Illness Consent: Risks, benefits, and alternatives have been discussed and questions answered. Patient agrees to proceed with procedure. Chief complaint: epigastric pain Narrative: Heather Hernandez is a 67 year old female referred for investigation of epigastric pain. For several months she has had pain in the epigastric area. She also gets full quite easily. Review of Systems Review of Systems: All systems reviewed & are unremarkable except as noted in HPI and below PMFSH Past Medical History Medical History Adult BMI 31.0-31.9 kg/sq m Atrial fibrillation BMI 26.0-26.9,adult BMI 27.0-27.9,adult BMI 34.0-34.9,adult BMI greater than 30 CAD (coronary artery disease) H/O cardiac pacemaker LBBB (left bundle branch block) Overweight with body mass index (BMI) of 28 to 28.9 in adult Surgical History Surgical History Hx of cataract surgery Apr 2021 Family History Family History Mother Hypertension Family history of diabetes mellitus in first degree relative Family history of coronary artery disease Atrial fibrillation Grandparent Cerebrovascular accident Father Depression Sibling Atrial fibrillation Other Family history of malignant neoplasm Social History Social History Smoking status: Never smoker Second hand tobacco smoke exposure: No Alcohol intake: current Alcohol use details: once per year Substance use: never Substance use type: does not use Lack of Transportation: No Lack of Food: Never True Current Housing: I Have Housing Concerned About Future Housing: No Difficulty Paying Gas/Electric Bills: No Difficulty Paying for Meds: No Currently Unemployed: No Education: Associate Degree Difficulty w/ Childcare or Family Care: No Living arrangements: with family Occupation/Education: retired 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 Gender identity (if verbalized by the patient): Female Spiritual care concerns: No Meds Home Medications and Allergies Home Medications Medication Instructions Recorded Confirmed Type rivaroxaban 20 mg tablet (Xarelto) 20 mg PO DAILY 10/29/20 01/23/23 History calcium carb 300 mg-D3 20 mcg-mag 1 tablet PO DAILY 02/13/22 01/15/23 History ox 25 mg-copper miner 0.5 ys-pbah-emob tablet (Caltrate-D3 Plus Minerals) atorvastatin 40 mg tablet 40 mg PO DAILY 09/19/22 01/15/23 History carvedilol 6.25 mg tablet 6.25 mg PO BID 01/15/23 01/23/23 History Allergies Allergy/AdvReac Type Severity Reaction Status Date / Time metoprolol Allergy Intermediate lethargic Verified 01/23/23 07:43 ampicillin Allergy Unknown Unknown Verified 01/23/23 07:43 cephalexin Allergy Unknown Unknown Verified 01/23/23 07:43 ciprofloxacin Allergy Unknown Unknown Verified 01/23/23 07:43 Penicillins Allergy Unknown Unknown Verified 01/23/23 07:43 Sulfa (Sulfonamide Allergy Unknown Unknown Verified 01/23/23 07:43 Antibiotics) sulfanilamide Allergy Unknown Unknown Verified 01/23/23 07:43 Exam Const: General: alert Orientation/consciousness: patient oriented x3 Resp: Auscultation: clear to auscultation bilaterally Cardio: Rhythm: regular rhythm GI: GI Palp: Yes Soft to palpation and No Tenderness to palpation present (GI) Neuro: General: patient oriented x3 Assessment and Plan Assessment and plan (1) Epigastric abdominal pain: Code(s): R10.13 - Epigastric pain Status: Acute Assessment and Plan: EGD with possible biopsy or dilatation or cautery.
[2023-01-23 07:44] VITALS: BP 123/69; PULSE 70; RESP 16; TEMP 36; O2SAT 97
[2023-01-23] MEDS: LACTATED RINGERS 1,000 ML 150 ML IV CONT (08:02)
--- NOTE | 2023-01-23 08:36 | WPDANESEPPF ---
Anes - Initial Pre Proc Eval Procedure: Operation Date: 01/23/23 09:00 Proposed Procedures p Esophagogastroduodenoscopy - Omid Fraser MD Date/Time: 01/23/23 08:36 Surgeon: Omid Fraser MD Pre Op Diagnosis: epigastric pain Patient Data Age: 67 Gender: F Height: 1.7 m Weight: 99.8 kg Last Vital Signs Temp 96.8 F L 01/23/23 07:44 Pulse 70 01/23/23 07:44 Resp 16 01/23/23 07:44 BP 123/69 01/23/23 07:44 Pulse Ox 97 01/23/23 07:44 O2 Del Method Room Air 01/23/23 07:44 Allergies Allergy/AdvReac Type Severity Reaction Status Date / Time metoprolol Allergy Intermediate lethargic Verified 01/23/23 07:43 ampicillin Allergy Unknown Unknown Verified 01/23/23 07:43 cephalexin Allergy Unknown Unknown Verified 01/23/23 07:43 ciprofloxacin Allergy Unknown Unknown Verified 01/23/23 07:43 Penicillins Allergy Unknown Unknown Verified 01/23/23 07:43 Sulfa (Sulfonamide Allergy Unknown Unknown Verified 01/23/23 07:43 Antibiotics) sulfanilamide Allergy Unknown Unknown Verified 01/23/23 07:43 Home Medications Medication Instructions Recorded Confirmed Type rivaroxaban 20 mg tablet (Xarelto) 20 mg PO DAILY 10/29/20 01/23/23 History calcium carb 300 mg-D3 20 mcg-mag 1 tablet PO DAILY 02/13/22 01/15/23 History ox 25 mg-coppersmith apprentice 0.5 vi-musi-ifgy tablet (Caltrate-D3 Plus Minerals) atorvastatin 40 mg tablet 40 mg PO DAILY 09/19/22 01/15/23 History carvedilol 6.25 mg tablet 6.25 mg PO BID 01/15/23 01/23/23 History Patient hx anesthesia problems: none Family hx anesthesia problems: none Results Review: All pre-operative results and documents have been reviewed as part of the pre-operative evaluation. [facility] Past Medical History Medical History Adult BMI 31.0-31.9 kg/sq m Atrial fibrillation BMI 26.0-26.9,adult BMI 27.0-27.9,adult BMI 34.0-34.9,adult BMI greater than 30 CAD (coronary artery disease) H/O cardiac pacemaker LBBB (left bundle branch block) Overweight with body mass index (BMI) of 28 to 28.9 in adult Surgical History Surgical History Hx of cataract surgery Apr 2021 Family History Family History Mother Hypertension Family history of diabetes mellitus in first degree relative Family history of coronary artery disease Atrial fibrillation Grandparent Cerebrovascular accident Father Depression Sibling Atrial fibrillation Other Family history of malignant neoplasm Social History Social History Smoking status: Never smoker Second hand tobacco smoke exposure: No Alcohol intake: current Alcohol use details: once per year Substance use: never Substance use type: does not use Lack of Transportation: No Lack of Food: Never True Current Housing: I Have Housing Concerned About Future Housing: No Difficulty Paying Gas/Electric Bills: No Difficulty Paying for Meds: No Currently Unemployed: No Education: Associate Degree Difficulty w/ Childcare or Family Care: No Living arrangements: with family Occupation/Education: retired 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 Informed Consent: The patient's anesth
[2023-01-23 09:04] VITALS: BP 101/54; PULSE 70; RESP 18; O2SAT 96
[2023-01-23 09:14] VITALS: BP 114/65; PULSE 70; RESP 18; O2SAT 97
[2023-01-23 09:24] VITALS: BP 119/63; PULSE 70; RESP 18; O2SAT 100
== END 2023-01-23 09:35 | disposition home or self-care (01) ==
PROVIDERS: PCP Family Medicine; Visit Provider Internal Medicine Gastroenterology
PROC: 0DJ08ZZ Inspection of Upper Intestinal Tract, Via Natural or Artificial Opening Endoscopic (ICD-10-PCS; CPT 43235; principal; 2023-01-23 09:00)
DX: K21.9 Gastro-esophageal reflux disease without esophagitis (principal); K44.9 Diaphragmatic hernia without obstruction or gangrene; I48.91 Unspecified atrial fibrillation; I25.10 Atherosclerotic heart disease of native coronary artery without angina pectoris; I44.7 Left bundle-branch block, unspecified; Z79.01 Long term (current) use of anticoagulants
CPT/HCPCS: 43239; 87081; 88305; J2704; J7120

== ENCOUNTER 2023-03-30 00:52 | Day surgery (SDC) | payer MEDICARE, SELFPAY ==
[2023-03-30] VITALS (10 sets, daily range): BP systolic 103–138; BP diastolic 61–82; PULSE 70–80; RESP 12–16; TEMP 36.9; O2SAT 94–100; BMI 34.7
--- NOTE | 2023-03-30 10:00 | ECG_ITS ---
Measurements Intervals [place] Rate: 81 P: [place]: 0 QRS: 139 QRSD: 153 T: 108 QT: 468 QTc: 547 Interpretive Statements ELECTRONIC VENTRICULAR PACEMAKER VENTRICULAR PREMATURE COMPLEX NO FURTHER INTERPRETATION IS POSSIBLE ATYPICAL ECG COMPARED TO ECG 09/22/2022 11:38:56 NO SIGNIFICANT CHANGES Electronically Signed On 03-30-2023 10:27:58 FINGERNAIL FORMER by Ace Santos D.O.
[2023-03-30 10:48] LABS: Anion Gap 7 mmol/L (8-16); Blood Urea Nitrogen 12 mg/dL (7-17); Carbon Dioxide 28 mmol/L (22-30); Chloride 104 mmol/L (98-107); Estimated CRCL calculation 73 ml/min; Estimated Glomerular Filt Rate > 60; Glucose 87 mg/dL (65-110); Magnesium 2.2 mg/dL (1.6-2.3); Sodium 139 mmol/L (137-145)
--- NOTE | 2023-03-30 11:15 | WPDHPUPDATE1 ---
History and Physical Update Update Date/Time: 03/30/23 11:15 History and Physical has been reviewed, including an updated exam of the patient. There are NO changes in the patient's condition. Risks, benefits, and alternatives have been discussed and questions answered. Patient agrees to proceed with procedure.
--- NOTE | 2023-03-30 11:16 | WPDMODSED ---
Moderate Sedation Note-Pt Data Patient Data Diagnosis: Atrial flutter and history of atrial fibrillation Present Complaint: None Procedure to be performed/Plan: Elective electrical cardioversion Allergies Allergy/AdvReac Type Severity Reaction Status Date / Time ampicillin Allergy Unknown Unknown Verified 03/30/23 10:13 cephalexin Allergy Unknown Unknown Verified 03/30/23 10:13 ciprofloxacin Allergy Unknown Unknown Verified 03/30/23 10:13 Penicillins Allergy Unknown Unknown Verified 03/30/23 10:13 Sulfa (Sulfonamide Allergy Unknown Unknown Verified 03/30/23 10:13 Antibiotics) metoprolol AdvReac Intermediate lethargic Verified 03/30/23 10:13 Home Medications Medication Instructions Recorded Confirmed Type rivaroxaban 20 mg tablet (Xarelto) 20 mg PO DAILY 10/29/20 03/30/23 History calcium carb 300 mg-D3 20 mcg-mag 1 tablet PO DAILY 02/13/22 03/30/23 History ox 25 mg-copy clerk 0.5 oa-vtic-vhcy tablet (Caltrate-D3 Plus Minerals) atorvastatin 40 mg tablet 40 mg PO DAILY 09/19/22 03/30/23 History carvedilol 6.25 mg tablet 6.25 mg PO BID 01/15/23 03/30/23 History Current Medications: Active Medications Sodium Chloride (Normal Saline Iv) 1,000 mls @ 30 mls/hr IV CONT .Q24H MORAIMA Sedation/Anesthesia: No previous sedation/anesthesia problems (including family history). [facility] Past Medical History Medical History Adult BMI 31.0-31.9 kg/sq m Atrial fibrillation BMI 26.0-26.9,adult BMI 27.0-27.9,adult BMI 34.0-34.9,adult BMI greater than 30 CAD (coronary artery disease) H/O cardiac pacemaker LBBB (left bundle branch block) Overweight with body mass index (BMI) of 28 to 28.9 in adult Surgical History Surgical History Hx of cataract surgery Apr 2021 Family History Family History Mother Hypertension Family history of diabetes mellitus in first degree relative Family history of coronary artery disease Atrial fibrillation Grandparent Cerebrovascular accident Father Depression Sibling Atrial fibrillation Other Family history of malignant neoplasm Social History Social History Smoking status: Never smoker Second hand tobacco smoke exposure: No Alcohol intake: never Alcohol use details: previous hx of 1-2 per year Substance use: never Substance use type: does not use Lack of Transportation: No Lack of Food: Never True Current Housing: I Have Housing Concerned About Future Housing: No Difficulty Paying Gas/Electric Bills: No Difficulty Paying for Meds: No Currently Unemployed: No Education: Associate Degree Difficulty w/ Childcare or Family Care: No Living arrangements: with family Occupation/Education: retired 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 Gender identity (if verbalized by the patient): Female Spiritual care concerns: No Mod Sed Physical Exam Physical Exam Pre Procedural Exam: Normal: Appearance, Eyes, Ears, Nose, Neck (Supple, normal range of motion), Throat (Posterior hypopharynx clear, nonerythematous), Airway (Normal anatomy, no obstruction), Lungs (Clear to auscultation bilaterally), Heart Size, Heart Rate, Heart Rhythm, Neuro Exam, Abdomen, Liver, Extremities (Palpable subcutaneous device left anterior chest wall) and Skin Hours since solid foods: 12 Hours since liquid intake: 12 Mallampati Classification: class III Internal Medicine - PN: Obj Da Vital Signs Vital Signs: Vital Signs - 24 hr 03/30/23 10:35 Temperature 36.9 C Pulse Rate 80 Respiratory Rate 16 Blood Pressure 126/73 Pulse Oximetry 98 Oxygen Delivery Room Air Meds/Results Medications: Active Medications Generic Name Dose Route Start Last Admin Trade Name Freq PRN Reason Stop Dose Admin Sodium Chlo
--- NOTE | 2023-03-30 11:30 | ECG_ITS ---
Measurements Intervals [place] Rate: 71 P: -56 [place]: 196 QRS: 138 QRSD: 155 T: 89 QT: 501 QTc: 546 Interpretive Statements ELECTRONIC ATRIAL PACEMAKER ELECTRONIC VENTRICULAR PACEMAKER NO FURTHER INTERPRETATION IS POSSIBLE ATYPICAL ECG COMPARED TO ECG 03/30/2023 10:09:39 NO SIGNIFICANT CHANGES Electronically Signed On 03-30-2023 12:04:29 GARMENT MANUFACTURER by Ace Santos D.O.
--- NOTE | 2023-03-30 11:33 | WPDCARDVER ---
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 Procedure in detail: After verbal and written informed consent was obtained the patient risks, benefits, and alternatives explained in detail the patient agreed to proceed with the plan of care as outlined above. Patient was evaluated at bedside in the [facility] room. Prior to proceeding with cardioversion, attempts to terminate atrial flutter were made by over pacing through her device which were unsuccessful. As such, decision was made to proceed with cardioversion. On examination, neck was supple with normal range of motion, no restrictions to opening of the oral cavity, jaw angle and posterior hypopharynx was clear. Lungs were clear to auscultation. Patient was placed in appropriate 30 to 45 degree angle in a supine position. Patient was monitored throughout the study with telemetry, oxygen saturation, end-tidal CO2 monitoring, blood pressure, heart rate, and respirations. Anterior and posterior defibrillator pads placed in the appropriate positions avoiding her subcutaneous left device in the left anterior chest wall. After confirmation of adequate sedation electrical cardioversion was carried out without complication. Patient tolerated the procedure well without difficulty. Sedation: Moderate Sedation/Anesthesia administration: Patient denied previous intolerance or complications with anesthesia/sedation. Please see sedation note for documentation of the pre-procedure physical examination. A total of 3mg intravenous Versed and a total of 75mcg intravenous Fentanyl in multiple divided doses was utilized for moderate sedation. Sedation start time was 1122 and end time was 1130 for a total of 8 minutes [id number] intra-procedure time. Sedation was administered by a qualified observer Daisy Romero RN under my supervision with intra-procedure [id number] observation and management throughout the entirety of the procedure. There were no other issues or complications and patient tolerated the procedure well and sedation protocol well and I was present for the entirety. Findings: Elective electrical cardioversion: After confirmation of adequate sedation and persistence of atrial flutter as evidenced on simultaneous device interrogation, 200 joules synched biphasic energy x1 was delivered with immediate roman catholic of sinus rhythm as evidence by atrial paced and biventricular paced rhythm on interrogation and confirmation by 12 lead EKG was obtained postprocedure confirming atrial and ventricular paced rhythm. Complications: None Conclusion: Successful roman catholic of sinus rhythm status post 200 joules synched biphasic energy x1. Post cardioversion interrogation of her CHILDHOOD TEACHER pacemaker device revealed normal function along with electronic atrial and electronic ventricular biventricular paced rhythm. No other settings were changed at this time. Device was function normally. Continue systemic anticoagulation and current medical therapy without change. She is not to interrupt systemic anticoagulation unless advised and particularly for the next 30 days post cardioversion to reduce embolic stroke risk.
== END 2023-03-30 12:45 | disposition home or self-care (01) ==
PROVIDERS: PCP Family Medicine; Visit Provider Internal Medicine Cardiovascular Disease
PROC: 5A2204Z Restoration of Cardiac Rhythm, Single (ICD-10-PCS; principal; 2023-03-30 11:30)
DX: I48.92 Unspecified atrial flutter (principal); F41.9 Anxiety disorder, unspecified; I42.8 Other cardiomyopathies; I44.7 Left bundle-branch block, unspecified; G47.30 Sleep apnea, unspecified; Z99.89 Dependence on other enabling machines and devices; Z79.01 Long term (current) use of anticoagulants; Z86.74 Personal history of sudden cardiac arrest; Z86.79 Personal history of other diseases of the circulatory system; Z82.3 Family history of stroke; Z95.0 Presence of cardiac pacemaker
CPT/HCPCS: 36415; 80048; 83735; 92960; J2250; J3010; J7030

== ENCOUNTER 2024-08-09 08:35 | Outpatient (CLI) | payer MEDICARE, SELFPAY ==
--- NOTE | ~2024-08-09 | US_ITS ---
Abdominal Sonogram: Real-time sonographic imaging of the abdomen was performed. Clinical History: Left upper quadrant pain Findings: The liver appears echogenic/heterogeneous with no evidence of mass lesion or bile duct dil atation. Main portal vein demonstrates normal direction of flow. The spleen is normal in size without evidence of focal lesion. The gallbladder is well distended, and appears normal with no evidence of gallstone or wall thickening. The common bile duct measures 3 mm. The visualized pancreas, aorta, a nd IVC are unremarkable. The right kidney measures 10.5 cm in length and the left kidney measures 11 .7 cm. There is no hydronephrosis or renal calculus. Impression: Diffuse fatty infiltration of the liver. Reviewed, dictated and finalized at location M. Impression: Diffuse fatty infiltration of the liver.
== END 2024-08-09 08:36 | disposition home or self-care (01) ==
LOC: MICIMG 08:35
PROVIDERS: PCP Family Medicine; Visit Provider Nurse Practitioner Family
DX: K76.0 Fatty (change of) liver, not elsewhere classified (principal)
CPT/HCPCS: 76700

== ENCOUNTER 2024-08-30 08:24 | Outpatient (CLI) | payer MEDICARE, SELFPAY ==
--- NOTE | ~2024-08-30 | CT_ITS ---
CT of the Abdomen and Pelvis: Indication: Umbilical hernia Technique: 2.5 mm axial scans were obtained through the abdomen and pelvis following intravenous adm inistration of 100 cc of Omnipaque 350. Dose reduction technique was used on this scan by utilizing a utomated exposure control and iterative reconstruction technique. The dose-length product (DLP) was 1 128.66 mGy-cm. COMPARISON: 11/03/2022 Findings: Scans through the lung bases are unremarkable. There is diffuse hepatic steatosis. The spleen, pancreas, gallbladder, adrenals and kidneys are with in normal limits. No evidence of aortic aneurysm. No lymphadenopathy. No bowel obstruction or bowel wall thickening. There is no evidence to suggest acute appendicitis. Ti ny fat-containing umbilical hernia noted. Images through the pelvis were performed. Urinary bladder unremarkable. Status post hysterectomy. No pelvic mass. No ascites. Impression: Tiny fat-containing of focal hernia. Diffuse hepatic steatosis. Reviewed, dictated and finalized at [facility]. Impression: Tiny fat-containing of focal hernia. Diffuse hepatic steatosis.
--- OUTSIDE RECORDS SUMMARY | 2024-08-30 08:33 | XMS_ITS | Clinical Summary ---
Author Organization [facility] [address] Address [address] [place] [address] Care Team Providers Care Crm Marketing Manager Name Role Phone Laurent Coleman MD Primary Care Provider + [phone] Maggie Butler RN Unavailable Unavaila Kesha Pate RN Unavailable Unavailable Allergies Active Allergy Reactions Criticality Noted Date Comments Cephalexin Rash Medium Metoprolol Fatigue Low 05/02/2021 intolerant Penicillin Rash Medium 05/27/2022 Childhood allergy Penicillin allergy history form completed Sulfa (Sulfonamide Antibiotics) Rash Medium Medications calcium carb/vit D3/minerals (CALTRATE 600+D PLUS MINERALS ORAL) Take 1 tablet by mouth daily Active rivaroxaban (Xarelto) 20 mg tabletIndications:C hronic anticoagulation TAKE 1 TABLET DAILY 90 tablet 2 05/16/20 24 Active carvediloL (COREG) 6.25 mg tablet TAKE 1 TABLET TWICE DAILY WITH MEALS 180 tablet 1 07/08/19 25 Active atorvastatin (LIPITOR) 40 mg tablet TAKE 1 TABLET DAILY 90 tablet 1 07/08/19 25 Active Jardiance 10 mg tablet TAKE 1 TABLET DAILY 90 tablet 3 07/13/19 25 Active spironolactone (ALDACTONE) 25 mg tablet TAKE 1 TABLET DAILY 90 tablet 3 07/13/19 25 Active losartan (COZAAR) 25 mg tablet TAKE 1 TABLET DAILY 90 tablet 3 08/30/19 25 Active losartan (COZAAR) 25 mg tablet Take 1 tablet (25 mg total) by mouth daily 05/10/20 24 025 Discontinued Active Problems Problem Noted Date Diagnosed Date HFrEF (heart failure with reduced ejection fract ion) 06/23/2023 Dizziness 09/16/2022 Shortness of breath 09/16/2022 Pain in both lower extremities 09/16/2022 Sick sinus syndrome 07/30/2022 A-fib 07/30/2022 Biventricular cardiac pacemaker in situ 07/29/19 23 Overview (07/28/2022): Joya BIV Pacemaker. Dx; NICM, LBBB, Afib, First Degree AVB. DOI 07/30/2022- Kahanda. Erin Griffin remote monitoring. 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 Adverse effect of drug 09/02/2016 Overview (10/17/2016): Medication side effects, initial encounter Atrial paroxysmal tachycardia (CMS/HCC) 02/29/20 16 Overview (08/28/2016): Atrial tachycardia, paroxysmal Mitral valve insufficiency 02/29/2016 Overview (08/28/2016): Mitral valve insufficiency, unspecified etiology Ventricular premature beats 02/29/2016 Overview (08/28/2016): PVC's (premature ventricular contractions) Obstructive sleep apnea syndrome 02/29/2016 Overview (08/28/2016): TIMOTHY on CPAP Left bundle branch block (LBBB) 01/17/2016 Overview (08/28/2016): LBBB (left bundle branch block) Palpitations 01/17/2016 Overview (08/28/2016): Heart palpitations Chest pain 01/17/2016 Overview (08/29/2016): Chest pain of unknown etiology Premature atrial contraction 01/17/2016 Overview (08/29/2016): PAC (premature atrial contraction) Chronic fatigue syndrome 01/17/2016 Overview (08/29/2016): Chronic fatigue Resolved Problems Problem Noted Date Diagnosed Date Resolved Date Dyslipidemia 01/17/2016 11/08/2021 Overview (08/29/2016): Dyslipidemia Encounters Date Type Department Care Team Description 08/29/2024 Results Follow-Up [facility] [address] [place] [address] [address] [place] [phone] Hadley Paredes MD 08/29/2024 ACO Medication Access [facility] Accountable Care Organization [address] [place] [id number] Tia Villasenor CPhT 08/16/2024 Orders Only [facility] [address] [place] [address] [address] [place] [phone] Hadley Paredes MD 07/07/2024 9:45 AM [facility] Office Visit [facility] [address] [place] [address] 8th [place] [address] [place] [address] Hadley Paredes MD Persistent atrial fibrillation (HCC) 07/07/2024 9:00 AM [facility] Ancillary Procedure [facility] [address] [place] [address] Medicine 8th [place] [address] [place] [address] Nonischemic cardiomyopathy (HCC) (Primary Dx); Fitting and adjustment of cardiac pacemaker 07/07/2024 Telephone [facility] [address] [place] [address] fraley, Ramon Brandt, MD transferring device 07/07/2024 Telephone [facility] [address] [facility] 8th [place] [address] [place] [phone] Hadley Paredes MD from Last 3 Months Immunizations Immunization Administration Dates Next Due Influenza, Unspecified 02/19/2021 Surgical History Surgery Date Site/Laterality Comments CATARACT EXTRACTION, BILATERAL Bilateral PARTIAL HYSTERECTOMY EAR SURGERY Right CATARACT EXTRACTION 04/2021 HYSTERECTOMY 1993 BLADDER SUSPENSION TUBAL LIGATION 1993 Medical History Medical History Date Comments Coronary artery disease LBBB (left bundle branch block) Sleep apnea CPAP Atrial fibrillation (HCC) Anxiety Cataract Persistent atrial fibrillation (HCC) GERD (gastroesophageal reflux disease) Hiatal hernia Family History Medical History Relation Name Comments Suicide Completion Father COPD Mother Shahida Coronary artery disease Mother Shahida Diabetes Mother Shahida Heart disease Mother Shahida Heart failure Mother Shahida Hypertension Mother Shahida Lung disease Mother Shahida Stroke Mother Shahida Stroke; Atrial fibrillation Sister Relation Name Status Comments Father Mother Shahida (Age 82) Sister Alive Social History Tobacco Use Types Packs/Day Years Used Date Smoking Tobacco: Never Cigarettes Passive Smoke Exposure: Never Smokeless Tobacco: Never Tobacco Cessation:Counseling Given: Not Answered Alcohol Use Standard Drinks/Week Comments Yes 0 (1 standard drink = 0.6 oz pur e alcohol) AUDIT-C Answer Date Recorded Q1: How often do you have a drink containing alc ohol? Monthly or less 06/08/2023 Q2: How many drinks containi ng alcohol do you have on a typical day when you are drinking? 1 or 2 06/08/2023 Q3: How often do you have si x or more drinks on one occasion? Never 06/08/2023 Personal Safety Answer Date Recorded Have you ever been in or are you currently in a harmful physical or emotional relationship or is someone making you feel afraid or unsafe? Denies 06/08/2023 Comments Unknown Sex and Gender Information Value Date Recorded Sex Assigned at Not on file Legal Sex Female 2:35 AM [facility] Gender Identity Not on file Sexual Orientation Not on file Obstetrics History Last Filed Vital Signs Vital Sign Reading Time Taken Comments Blood Pressure 107/71 07/07/2024 9:12 AM [facility] Pulse 89 07/07/2024 9:12 AM [facility] Temperature 36.6 C (97.8 F) 08/21/2023 2:11 PM CDT Respiratory Rate 14 01/12/2024 8:47 AM CDT Oxygen Saturation 96% 07/07/2024 9:12 AM [facility] Inhaled Oxygen Concentration - - Weight 100 kg (220 lb 6.4 oz) 07/07/2024 9:12 AM [facility] Height 170.2 cm (5' 7 ) 07/07/2024 9:12 AM [facility] Body Mass Index 34.52 07/07/2024 9:12 AM [facility] Plan of Treatment Health Maintenance Due Date Last Done Comments Colon Cancer Screening-Colonoscopy 1955 Depression Screening 1955 Hepatitis C Screening 1955 DTaP/Tdap/Td Vaccine (1 - Tdap) 1967 Hepatitis B Screening 1974 Pneumococcal vaccine 65+ (1 of 2 - PCV) 1975 Zoster Vaccine (1 of 2) 2006 Well Visit 65+ 2021 Covid-19 Vaccine (4 - 2023-2 5 season) 2024 04/12/2021, 08/14/2020, 07/24/2020 Fall Risk Assessment 01/11/2025 01/12/2024, 06/08/2023, 08/26/2022 Osteoporosis Screening-Bone Density Scan 04/21/2025 04/21/2023, 04/21/2023 Breast Cancer Screening-Mammogram 04/30/2025 04/30/2024, 04/30/2024, 04/23/2023, Additional history exists Influenza Vaccine Completed 03/17/2024, , 02/19/2021, Additional history exists Medical Devices Implanted Type Area Director Corporate Communications Device Identifier Shelf Expiration Date Model / Serial / Lot [employer] Vascade Mvp 6-12fr Venous Closure [id number] - [id number] Implanted:Qty : 1 on 06/08/2023 by Anjel Bateman MD at [facility] Right: Femoral Vein [employer] 03/02/2025 [id number] C-10U / / [id number] [employer] Vascade Mvp 6-12fr Venous Closure [id number] - [id number] Implanted:Qty : 1 on 06/08/2023 by Anjel Bateman MD at [facility] Collagen Right: Femoral Vein [employer] 09/02/2024 [id number] C-10U / / [id number] [employer] Tendril Sts 6fr 58cm Is-1 Connector Active Fixation Bipolar Soft 8tc/58 - [id number] - [id number] Implanted:Qty : 1 on 07/30/2022 by Anjel Bateman MD at [facility] Lead [employer] [id number] 04/23/2025 2088TC/ 58 / [id number] / [employer] Quartet 4.7fr 86cm Quadripolar Is-4 Llll Connector 8 Curve Low 1456q/86 - [id number] - [id number] Implanted:Qty : 1 on 07/30/2022 by Anjel Bateman MD at [facility] Lead [employer] [id number] 01/22/2025 1456Q/8 6 / [id number] 70 / [employer] Tendril Sts 6fr 52cm Is-1 Connector Active Fixation Bipolar Soft 2087tc/52 - [id number] - [id number] Implanted:Qty : 1 on 07/30/2022 by Anjel Bateman MD at [facility] Lead Right: Atrial Appendage [employer] [id number] 05/24/2025 2088TC/ 52 / [id number] / [employer] Pacemaker Quadra Allure Mp Rf Assistant Superintendent For Curriculum-P Mri [id number] - [id number] - [id number] Implanted:Qty : 1 on 07/30/2022 by Anjel Bateman MD at [facility] Pacemaker Left: Infraclavicular Anterior Chest Wall [employer] [id number] 01/23/2024 [id number] / [id number] / Procedures Procedure Name Priority Date/Time Associated Diagnosis Comments DEVICE CHECK - REMOTE Routine 08/16/2024 4:00 AM CDT ECG 12-LEAD Routine 07/07/2024 9:10 AM [facility] Persistent atrial fibrillation (HCC) DEVICE CHECK - IN OFFICE Routine 07/07/2024 8:34 AM [facility] Nonischemic cardiomyopathy (HCC) from Last 3 Months Results * DEVICE CHECK - REMOTE (08/16/2024 4:00 AM CDT) Anatomical Region Laterality Modality Other 08/16/2024 4:00 AM CDT Narrative 08/19/2024 4:41 PM CDT Interpretation Summary: Battery and Leads (BL) Normal parameters noted on battery and lead(s) --- 6 years remaining (this is an estimate based on prior usage) P wave out of range --- < 0.2mV. Fine AF noted Presenting Rhythm (FL) Ventricular Pacing (SNACK STEWARD) Atrial Fibrillation or Flutter Arrhythmic events (AE) Atrial fibrillation and/or flutter with controlled ventricular rate Persistent atrial fibrillation and/or flutter Anticoagulation (AC) Patient prescribed Rivaroxaban (Xarelto) Patient on anticoagulant therapy Transmission Information (TI) Device Summary Report Procedure Note Hadley Paredes MD - 08/19/2024 Interpretation Summary: Battery and Leads (BL) Normal parameters noted on battery and lead(s) --- 6 years remaining(this is an estimate based on prior usage) P wave out of range --- < 0.2mV. Fine AF noted Presenting Rhythm (FL) Ventricular Pacing (SNACK STEWARD) Atrial Fibrillation or Flutter Arrhythmic events (AE) Atrial fibrillation and/or flutter with controlled ventricular rate Persistent atrial fibrillation and/or flutter Anticoagulation (AC) Patient prescribed Rivaroxaban (Xarelto) Patient on anticoagulant therapy Transmission Information (TI) Device Summary Report Hadley Paredes MD [facility] PRO CEDURES Final Result * ECG 12 lead (07/07/2024 9:10 AM [facility]) Hadley Paredes MD ECG ORDERABLES Final R esult * DEVICE CHECK - IN OFFICE (07/07/2024 8:34 AM [facility]) Anatomical Region Laterality Modality Other 07/07/2024 2:00 AM [facility] Narrative 07/11/2024 11:24 AM [facility] Interpretation Summary: Battery and Leads (BL) Normal parameters noted on battery and lead(s) Presenting Rhythm (FL) Atrial Sensing-Ventricular Pacing (-SNACK STEWARD) Atrial Fibrillation or Flutter Arrhythmic events (AE) Atrial fibrillation and/or flutter with controlled ventricular rate Anticoagulation (AC) Patient on anticoagulant therapy Patient prescribed Rivaroxaban (Xarelto) Procedure Note Hadley Paredes MD - 07/11/2024 Interpretation Summary: Battery and Leads (BL) Normal parameters noted on battery and lead(s) Presenting Rhythm (FL) Atrial Sensing-Ventricular Pacing (-SNACK STEWARD) Atrial Fibrillation or Flutter Arrhythmic events (AE) Atrial fibrillation and/or flutter with controlled ventricular rate Anticoagulation (AC) Patient on anticoagulant therapy Patient prescribed Rivaroxaban (Xarelto) Mamie Hunt MD [facility] PROCEDURES Final Result from Last 3 Months Insurance [employer] MEDICARE [facility] MEDICARE [facility] Address: [facility] [id number] [place] [phone] [employer] MEDICARE Advance Directives For more information, please contact: [phone] * Full Code (Latest Code Status on File) Date Activated Date Inactivated Comments 07/30/2022 11:05 AM 07/31/2022 4:22 PM Care Teams Crm Marketing Manager Relationship Specialty Start Date End Date Laurent Coleman MD PCP - General 08/22/16 Maggie Butler, round up ring hand Failure Coordinator 07/07/23 Kesha Kitchen, round up ring hand Failure Coordinator 08/24/23
--- OUTSIDE RECORDS SUMMARY | 2024-08-30 08:33 | XMS_ITS | Clinical Summary ---
Author Organization [facility] Address [address] [place] [address] Care Team Providers Care House Cleaner Name Role Phone Laurent Coleman MD Primary Care Provider [phone] Immunizations Immunization Administration Dates Next Due Covid-19, Mrna, Lnp-s, Pf, 30 Mcg/0.3 Ml Dose (P atulzer) 04/12/2021 Social History Tobacco Use Types Packs/Day Years Used Date Smoking Tobacco: Never Assessed Comments No Sex and Gender Information Value Date Recorded Sex Assigned at Not on file Legal Sex Female 12:52 PM CUSTOMER BUSINESS MANAGER Gender Identity Not on file Sexual Orientation Not on file Plan of Treatment Health Maintenance Due Date Last Done Comments Hepatitis C Virus (HCV) Screening 1955 TdaP Immunization 1955 Colonoscopy 2001 Colorectal Cancer Screening 2001 Cologuard 2006 Immunochemical Fecal Occult Blood 2006 SARS-COV-2 Immunization ( season) 2024 04/11/2024, 02/20/2023, 03/21/2022, Additional history exists DEXA Bone Density 04/21/2025 04/21/2023 Mammogram 04/30/2025 04/30/2024, 04/23/2023 Zoster Immunization Completed 06/13/2021, Pneumococcal Immunization (50+ years) Completed 01/15/2023 Pneumococcal Immunization Combined Discontinued 01/15/2023 Respiratory Syncytial Virus (RSV) Immunization (Adult) Completed 04/18/2023 Influenza Immunization Completed 4, 02/26/2023, 03/13/2022, Additional history exists Hepatitis B Immunization Aged Out No longer eligible based on patient's age to complete this topic Meningococcal Immunization (ACWY) Aged Out No longer eligible based on patient's age to complete this topic Rotavirus Immunization Aged Out No lo nger eligible based on patient's age to complete this topic Procedures Procedure Name Priority Date/Time Associated Diagnosis Comments [facility] SCREENING BILATERAL DIGITAL W CAD W CONTRERAS Routine 04/30/2024 9:45 AM CUSTOMER BUSINESS MANAGER Visit for screening mammogram [facility] BONE DENSITOMETRY AXIAL SKELETON Routine 04/21/2023 11:21 AM CUSTOMER BUSINESS MANAGER Menopausal and postmenopausal disorder Postmenopause from Last 3 Months or Most Recently Relevant to Health Maintenance Results * [facility] SCREENING BILATERAL DIGITAL W CAD W CONTRERAS (04/30/2024 9:45 AM CUSTOMER BUSINESS MANAGER) Anatomical Region Laterality Modality breast Bilateral Mammography 04/30/2024 10:0 5 AM CUSTOMER BUSINESS MANAGER Narrative 05/02/2024 6:47 AM CUSTOMER BUSINESS MANAGER - [facility] SCREENING BILATERAL DIGITAL W CAD W CONTRERAS BILATERAL DIGITAL SCREENING MAMMOGRAM 3D/2D WITH CAD WITH MEDIOLATERAL OBLIQUE CRANIOCAUDAL: 04/30/2024 The study was acquired using digital technology and interpreted from soft copy. Current study was also evaluated with ICAD version 7.2. 2D digital mammographic views, as well as 3D digital tomosynthesis were performed in the CC and MLO projections. CLINICAL: Routine screening. Patient has no complaints. Pacemaker left chest. No personal history of cancer. No family history of breast cancer. COMPARISONS: Comparison is made to exams dated: 04/23/2023 [facility], 04/14/2022 [facility], and 03/05/2021 [facility]. BREAST TISSUE:There are scattered areas of fibroglandular density. FINDINGS: A cardiac pacemaker is present on the left. No significant masses, calcifications, or other findings are seen in either breast. There has been no significant interval change. IMPRESSION: NEGATIVE There is no mammographic evidence of malignancy. A 1 year screening mammogram is recommended. A letter will be sent to the patient with these results. The patient will be entered into a reminder system with a target due date of 1 year for her next screening exam. Electronically signed by: Ting Daniel M.D. ll/:05/01/2024 20:36:00 Horser Up(s): RAQUEL SmithR)(M), [facility] letter sent: Normal Exam Reading location: [place] Mammogram BI-RADS: Category 1: Negative Procedure Note Ting Daniel MD - 05/02/2024 - [facility] SCREENING BILATERAL DIGITAL W CAD W CONTRERAS BILATERAL DIGITAL SCREENING MAMMOGRAM 3D/2D WITH CAD WITH MEDIOLATERAL OBLIQUE CRANIOCAUDAL: 04/30/2024 The study was acquired using digital technology and interpreted from soft copy. Current study was also evaluated with ICAD version 7.2. 2D digital mammographic views, as well as 3D digital tomosynthesis were performed in the CC and MLO projections. CLINICAL: Routine screening. Patient has no complaints. Pacemaker left chest. No personal history of cancer. No family history of breast cancer. COMPARISONS: Comparison is made to exams dated: 04/23/[address] [facility], 04/14/2022 [facility], and 03/05/2021 [facility]. BREAST TISSUE:There are scattered areas of fibroglandular density. FINDINGS: A cardiac pacemaker is present on the left. No significant masses, calcifications, or other findings are seen in either breast. There has been no significant interval change. IMPRESSION: NEGATIVE There is no mammographic evidence of malignancy. A 1 year screening mammogram is recommended. A letter will be sent to the patient with these results. The patient will be entered into a reminder system with a target due date of 1 year for her next screening exam. Electronically signed by: Ting Daniel M.D. ll/:05/01/2024 20:36:00 Horser Up(s): RT Luis(R)(M), [facility] letter sent: Normal Exam Reading location: [place] Mammogram BI-RADS: Category 1: Negative us Laurent Guadalupe Coleman MD IMG MAMMO ORDERABLES Final Re sult * [facility] BONE DENSITOMETRY AXIAL SKELETON (04/21/2023 11:21 AM CUSTOMER BUSINESS MANAGER) Anatomical Region Laterality Modality BODY N/A Computed Radiogr aphy 04/21/2023 12:0 8 PM CUSTOMER BUSINESS MANAGER Impressions 04/21/2023 12:10 PM CUSTOMER BUSINESS MANAGER IMPRESSION: Low bone mass REFERENCE: Bone mineral density: Normal (T-score above or = -1.0) Low bone mass (T-score between -1.0 and -2.5) replaces the previously used term osteopenia Osteoporosis (T-score = or below -2.5) Medical evaluation for secondary causes of low bone mineral density may be appropriate. FRAX is a World Health Organization validated fracture risk assessment tool that calculates a person's 10 year probability of a major osteoporosis related fracture and hip fracture. According to the National Osteoporosis Foundation guidelines, postmenopausal women and men age 50 or older with low bone mass and a 10 year probability of a major osteoporosis related fracture = or greater than 20% or a 10 year probability of a hip fracture = or greater than 3% should be considered for treatment. For further information, including treatment recommendations, please refer to the 2019 ISCD Official Positions (http://www.iscd.org) and the NOF's Clinician's Guide to Prevention and Treatment of Osteoporosis (http://www.nof.org/professionals/clinical-guidelines) Narrative 04/21/2023 12:10 PM CUSTOMER BUSINESS MANAGER EXAM DESCRIPTION: [facility] BONE DENSITOMETRY AXIAL SKELETON REASON FOR STUDY: 67 y/o year old F with given history of: Postmenopausal status. Patient took Boniva, stopping 5 years ago. Patient takes vitamin-D, multivitamin and calcium. Animal Daycare Provider/Model: Endymed (S/N [id number]) CLINICAL INFORMATION: Current height: 67 inches Maximum height: 68 inches Weight: 217 pounds Risk factors: None COMPARISON: None available FINDINGS: AP LUMBAR SPINE L1-L4: Total BMD is 1.026 g/cm2 T-score is -1.4 LEFT HIP: Total BMD is 0.871 g/cm2 T-score is -1.1 Femoral neck BMD is 0.798 g/cm2 T-score is -1.7 FRAX: 10 year risk for a major osteoporotic fracture is 9.5 %, 10 year risk for a hip fracture is 1.3 % THIS IS AN ELECTRONICALLY VERIFIED FINAL REPORT 04/21/2023 12:08 PM - Electronically signed by Nay Villegas M.D. TW: TW Report ID: [id number] Reading Location: [id number] Procedure Note Nay Villegas MD - 04/21/2023 EXAM DESCRIPTION: [facility] BONE DENSITOMETRY AXIAL SKELETON REASON FOR STUDY: 67 y/o year old F with given history of: Postmenopausal status. Patient took Boniva, stopping 5 years ago. Patient takes vitamin-D, multivitamin and calcium. Animal Daycare Provider/Model: Endymed (S/N [id number]) CLINICAL INFORMATION: Current height: 67 inches Maximum height: 68 inches Weight: 217 pounds Risk factors: None COMPARISON: None available FINDINGS: AP LUMBAR SPINE L1-L4: Total BMD is 1.026 g/cm2 T-score is -1.4 LEFT HIP: Total BMD is 0.871 g/cm2 T-score is -1.1 Femoral neck BMD is 0.798 g/cm2 T-score is -1.7 FRAX: 10 year risk for a major osteoporotic fracture is 9.5 %, 10 year risk for a hip fracture is 1.3 % THIS IS AN ELECTRONICALLY VERIFIED FINAL REPORT 04/21/2023 12:08 PM - Electronically signed by Nay Villegas M.D. TW: TW Report ID: [id number] Reading Location: [id number] IMPRESSION: Low bone mass REFERENCE: Bone mineral density: Normal (T-score above or = -1.0) Low bone mass (T-score between -1.0 and -2.5) replaces the previously used term osteopenia Osteoporosis (T-score = or below -2.5) Medical evaluation for secondary causes of low bone mineral density may be appropriate. FRAX is a World Health Organization validated fracture risk assessment tool that calculates a person's 10 year probability of a major osteoporosis related fracture and hip fracture. According to the National Osteoporosis Foundation guidelines, postmenopausal women and men age 50 or older with low bone mass and a 10 year probability of a major osteoporosis related fracture = or greater than 20% or a 10 year probability of a hip fracture = or greater than 3% should be considered for treatment. For further information, including treatment recommendations, please refer to the 2019 ISCD Official Positions (http://www.iscd.org) and the NOF's Clinician's Guide to Prevention and Treatment of Osteoporosis (http://www.nof.org/professionals/clinical-guidelines) Viviana Bennett APRN, CHANGE AGENT IMG DEXA ORDERABLES F inal Result from Last 3 Months or Most Recently Relevant to Health Maintenance Insurance MEDICARE C [employer]ET[employer] Care Teams House Cleaner Relationship Specialty Start Date End Date Laurent Coleman MD [address] [place] [address] PCP - General Family Medicine 04/21/23
--- OUTSIDE RECORDS SUMMARY | 2024-08-30 08:33 | XMS_ITS | Encounter Summary ---
Author Organization [facility] Address [address] [facility] [address] [place] [address] Care Team Providers Care Sales Office Administrator Name Role Phone Laurent Coleman MD Primary Care Provider + [phone] Laurent Coleman MD Primary Care Provider + [phone] Maggie Butler RN Unavailable Unavaila Kesha Pate RN Unavailable Unavailable Encounter Details Date Type Department Care Team (Late st Contact Info) Description 05/29/2016 Orders Only [facility] ProviderJess MD [address] [place] [address] Social History Tobacco Use Types Packs/Day Years Used Date Smoking Tobacco: Never Alcohol Use Standard Drinks/Week Comments Yes 0 (1 standard drink = 0.6 oz pur e alcohol) Comments Unknown Sex and Gender Information Value Date Recorded Sex Assigned at Not on file Legal Sex Female 2:35 AM FLYING II INSTRUCTOR Gender Identity Not on file Sexual Orientation Not on file documented as of this encounter Plan of Treatment Not on file documented as of this encounter Procedures Procedure Name Priority Date/Time Associated Diagnosis Comments CARDIOLOGY REPORT 05/29/2016 documented in this encounter Results * CARDIOLOGY REPORT (05/29/2016) Anatomical Region Laterality Modality Other Narrative 05/29/2016 Ordered by an unspecified provider. Historical Provider [facility] Final Result documented in this encounter Visit Diagnoses Not on filedocumented in this encounter Additional Health Concerns Infection Onset Date Last Indicated Resolved Time COVID: Suspected 08/21/2023 08/21/2023 08/21/2023 2:39 PM CDT documented as of this encounter Care Teams Sales Office Administrator Relationship Specialty Start Date End Date Laurent Coleman MD PCP - General 08/22/16 Laurent Coleman MD PCP - General 06/02/14 08/21/16 Maggie Butler, regional service manager Failure Coordinator 07/07/23 Kesha Kitchen, regional service manager Failure Coordinator 08/24/23 documented as of this encounter
--- OUTSIDE RECORDS SUMMARY | 2024-08-30 08:33 | XMS_ITS | Referral Summary ---
Author Organization [facility] [address] [place] [address] [address] [place] [address] Care Team Providers Care Recruiter Specialist Name Role Phone Laurent Coleman MD Primary Care Provider Maggie Butler RN Unavailable Unavaila Kesha Pate RN Unavailable Unavailable Encounters Date Type Department Care Team Description 08/29/2024 Results Follow-Up [facility] Cardiology [facility] Medical Office Building [address] [place] [address] Hadley Paredes MD 08/29/2024 ACO Medication Access [facility] Accountable Care Organization [address] [place] [address] Tia Villasenor CPhT 08/16/2024 Orders Only [facility] Cardiology [facility] Medical Office Building [address] [place] [address] Hadley Paredes MD 07/07/2024 Telephone [facility] Cardiology [address] [place] [address] Ramon Avilez MD transferring device 07/07/2024 Telephone [facility] Cardiology [address] [place] [address] [facility] 8th [place] [address] [place] [phone] Hadley Paredes MD 07/07/2024 9:45 AM EROSION CONTROL COORDINATOR Office Visit [facility] Cardiology [address] [place] [address] [facility] 8th [place] [address] [place] [address] Hadley Paredes MD Persistent atrial fibrillation (HCC) 07/07/2024 9:00 AM EROSION CONTROL COORDINATOR Ancillary Procedure [facility] Cardiology [address] [facility] 8th [place] [address] [place] [id number] Nonischemic cardiomyopathy (HCC) (Primary Dx); Fitting and adjustment of cardiac pacemaker from Last 3 Months Allergies Active Allergy Reactions Criticality Noted Date [...] (06/20/2022): Added automatically from request for surgery [id number] Chronic anticoagulation 04/03/2022 Hip pain 01/10/2022 Mixed hyperlipidemia 05/02/2021 At risk for amiodarone toxicity with buttermaker continuous churn u se 05/02/2021 Persistent atrial fibrillation 03/01/2021 Nonischemic cardiomyopathy 03/01/2021 Medication side effects 03/01/2021 Bradycardia 03/01/2021 Atrial fibrillation with RVR (CMS/HCC) Unintentional weight loss 06/15/2018 Coronary artery disease invo lving inupiat coronary artery of inupiat heart without angina 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 [...] Date Dyslipidemia 01/17/2016 11/08/2021 Overview (08/29/2016): Dyslipidemia Immunizations Immunization Administration Dates Next Due Influenza, Unspecified 02/19/2021 Social History Tobacco Use Types Packs/Day Years [...] on file Legal Sex Female 2:35 AM EROSION CONTROL COORDINATOR Gender Identity Not on file Sexual Orientation Not on file Last Filed Vital Signs Vital Sign Reading Time Taken Comments Blood Pressure 107/71 07/07/2024 9:12 AM EROSION CONTROL COORDINATOR Pulse 89 07/07/2024 9:12 AM EROSION CONTROL COORDINATOR Temperature 36.6 C (97.8 F) 08/21/2023 2:11 PM CDT Respiratory Rate 14 01/12/2024 8:47 AM CDT Oxygen Saturation 96% 07/07/2024 9:12 AM EROSION CONTROL COORDINATOR Inhaled Oxygen Concentration - - Weight 100 kg (220 lb 6.4 oz) 07/07/2024 9:12 AM EROSION CONTROL COORDINATOR Height 170.2 cm (5' 7 ) 07/07/2024 9:12 AM EROSION CONTROL COORDINATOR Body Mass Index 34.52 07/07/2024 9:12 AM EROSION CONTROL COORDINATOR Plan of Treatment Not on file Medical Devices Implanted Type Area Social Media Intern Device Identifier Shelf Expiration Date Model / Serial / Lot Nines [employer] Vascade Mvp 6-12fr Venous Closure [id number] - [id number] Implanted:Qty : 1 on 06/08/2023 by Anjel Bateman MD at [facility] Collagen Right: Femoral Vein [employer] 03/02/2025 [id number] C-10U / / [id number] [employer] Vascade Mvp 6-12fr Venous Closure [id number] - [id number] Implanted:Qty : 1 on 06/08/2023 by Anjel Bateman MD at [facility] Collagen Right: Femoral Vein [employer] 09/02/2024 [id number] C-10U / / [id number] [employer] Tendril Sts 6fr 58cm Is-1 Connector Active Fixation Bipolar Soft 2088tc/58 - [id number] - [id number] Implanted:Qty : 1 on 07/30/2022 by Anjel Bateman MD at [facility] Lead [employer] [id number] 04/23/2025 2088TC/ 58 / [id number] / [employer] Quartet 4.7fr 86cm Quadripolar Is-4 Llll Connector 8 Curve Low 1456q/86 - [id number] - [id number] Implanted:Qty : 1 on 07/30/2022 by Anjel Bateman MD at [facility] Lead [employer] [id number] 01/22/2025 1456Q/8 6 / [id number] / [employer] Tendril Sts 6fr 52cm Is-1 Connector Active Fixation Bipolar Soft 2088tc/52 - [id number] - [id number] Implanted:Qty : 1 on 07/30/2022 by Anjel Bateman MD at [facility] Lead Right: Atrial Appendage [employer] [id number] 05/24/2025 2088TC/ 52 / [id number] / [employer] Pacemaker Quadra Allure Mp Rf Credit Assistant-P Mri [id number] - [id number] - [id number] Implanted:Qty : 1 on 07/30/2022 by Anjel Bateman MD at [facility] Pacemaker Left: Infraclavicular Anterior Chest Wall [employer] [id number] 01/23/2024 [id number] / [id number] / Procedures Procedure Name Priority Date/Time Associated Diagnosis Comments DEVICE CHECK - REMOTE Routine 08/16/2024 4:00 AM CDT ECG 12-LEAD Routine 07/07/2024 9:10 AM EROSION CONTROL COORDINATOR Persistent atrial fibrillation (HCC) DEVICE CHECK - IN OFFICE Routine 07/07/2024 8:34 AM EROSION CONTROL COORDINATOR Nonischemic cardiomyopathy (HCC) from Last 3 Months [...] < 0.2mV. Fine AF noted Presenting Rhythm (NE) Ventricular Pacing (DRIVE IN TELLER) Atrial Fibrillation or Flutter Arrhythmic events (AE) [...] < 0.2mV. Fine AF noted Presenting Rhythm (NE) Ventricular Pacing (DRIVE IN TELLER) Atrial Fibrillation or Flutter Arrhythmic events (AE) Atrial fibrillation and/or flutter with controlled ventricular rate Persistent atrial fibrillation and/or flutter Anticoagulation (AC) Patient prescribed Rivaroxaban (Xarelto) Patient on anticoagulant therapy Transmission Information (TI) Device Summary Report Hadley Paredes MD [facility] PRO CEDURES Final Result * ECG 12 lead (07/07/2024 9:10 AM EROSION CONTROL COORDINATOR) Result [facility] Hadley Paredes MD ECG ORDERABLES Final R esult * DEVICE CHECK - IN OFFICE (07/07/2024 8:34 AM EROSION CONTROL COORDINATOR) Anatomical Region Laterality Modality Other 07/07/2024 2:00 AM EROSION CONTROL COORDINATOR Narrative 07/11/2024 11:24 AM EROSION CONTROL COORDINATOR Interpretation Summary: Battery and Leads (BL) Normal parameters noted on battery and lead(s) Presenting Rhythm (NE) Atrial Sensing-Ventricular Pacing (-DRIVE IN TELLER) Atrial Fibrillation or Flutter Arrhythmic events (AE) Atrial fibrillation and/or flutter with controlled ventricular rate Anticoagulation (AC) Patient on anticoagulant therapy Patient prescribed Rivaroxaban (Xarelto) Procedure Note Hadley Paredes MD - 07/11/2024 Interpretation Summary: Battery and Leads (BL) Normal parameters noted on battery and lead(s) Presenting Rhythm (NE) Atrial Sensing-Ventricular Pacing (-DRIVE IN TELLER) Atrial Fibrillation or Flutter Arrhythmic events (AE) Atrial fibrillation and/or flutter with controlled ventricular rate Anticoagulation (AC) Patient on anticoagulant therapy Patient prescribed Rivaroxaban (Xarelto) Result [facility] Mamie Hunt MD [facility] PROCEDURES Final Result from Last 3 Months Insurance AETNA MEDICARE [facility] MEDICARE [facility] MEDICARE Advance Directives For more information, please contact: [phone] * Full Code (Latest Code Status on File) Date Activated Date Inactivated Comments 07/30/2022 11:05 AM 07/31/2022 4:22 PM Care Teams Recruiter Specialist Relationship Specialty Start Date End Date Laurent Coleman MD PCP - General 08/22/16 Maggie Btuler, electrical maintenance worker Failure Coordinator 07/07/23 Kesha Kitchen, electrical maintenance worker Failure Coordinator 08/24/23
--- OUTSIDE RECORDS SUMMARY | 2024-08-30 08:34 | XMS_ITS | Encounter Summary ---
Author Organization [facility] Address [address] [place] [address] Phone Care Team Providers Care Circulation Supervisor Name Role Phone Laurent Coleman MD Primary Care Provider + [phone] Maggie Butler RN Unavailable Unavaila Kesha Pate RN Unavailable Unavailable Encounter Details Date Type Department Care Team (Late st Contact Info) Description 08/29/2024 Results Follow-Up [facility] Cardiology [address] [facility] Medical Office Building [address] [place] [phone] Hadley Paredes MD [facility] [address] [place] [address] Social History Tobacco Use Types Packs/Day Years Used Date Smoking Tobacco: Never Cigarettes Passive Smoke Exposure: Never Smokeless Tobacco: Never Alcohol Use Standard Drinks/Week Comments [...] on file Legal Sex Female 2:35 AM ENGINE LATHE SET UP OPERATOR TOOL Gender Identity Not on file Sexual Orientation Not on file documented as of this encounter Plan of Treatment Not on file documented as of this encounter Visit Diagnoses Not on filedocumented in this encounter Care Teams Circulation Supervisor Relationship Specialty Start Date End Date Laurent Coleman MD PCP - General 08/22/16 Maggie Butler, leadership intern Failure Coordinator 07/07/23 Kesha Kitchen RN Heart Failure Coordinator 08/24/23 documented as of this encounter
--- OUTSIDE RECORDS SUMMARY | 2024-08-30 08:34 | XMS_ITS | Continuity of Care Document ---
Author Organization [facility] Address [address] [place] [address] [address] [place] [address] Phone Care Team Providers Care Switchboard Receptionist Name Role Phone Josiah Tamez Unavailable Unavailable Procedures Procedure Date Office/outpatient Visit, Est Office/outpatient Visit, Est Office/outpatient Visit, Est Advance Directives Directive Yes / No Effective Date File Name No Information Encounters Encounter Description Practice Location Reason(s) For Visit Diagnoses Date Provider Providers Copied on Encounter Office/outpat ient Visit, [facility] [address] [place] [address] [address], [place], [place], [id number], tel:[phone] SEC [facility] No Information 5-201 0 Dashawn Rahman. [address] [facility] [address] [place] , [address], [place], [place], [facility], . tel:[phone] Office/outpat ient Visit, [facility] [address] [place] [address] [address], [place], [place], [id number], [place] tel:[phone] SEC [facility] No Information 4-200 9 Dashawn Rahman. [address] [place] , [address], [place], [place], [facility], . tel:[phone] Office/outpat ient Visit, [facility] [address] [place] [address] [address], [place], [place], [id number], tel:[phone] SEC [facility] No Information Jan-200 7 Tayoashlee Josiah. [address] , [address], [place], [address], [place]. tel:[phone] Family History Family Member Type Diagnosis Age At Onset No Information Payers Payer name Insurance type Covered republican ID Authoriza domoniquemal(s) [facility] Out Of State [id number] Social History Type Description Quantity Date Captured [...]
--- OUTSIDE RECORDS SUMMARY | 2024-08-30 08:34 | XMS_ITS | Continuity of Care Document ---
Author Name [facility] Address [address] [place] [address] Organization [facility] Care Team Providers Care Data Solutions Architect Name Role Phone [facility] Unavailable Unavailable Allergies, Adverse Reactions, Alerts Substance Category Reaction Severity Reaction type Status Date Reported Comments Source penicillin Assertion Rash Moderate Drug allergy Active [facility] Keflex Assertion Rash Drug allergy Active [facility] sulfa drugs Assertion Rash Drug allergy Active [facility]
--- OUTSIDE RECORDS SUMMARY | 2024-08-30 08:34 | XMS_ITS | Encounter Summary ---
Author Organization [facility] Address [address] [place] [address] Care Team Providers Care Rn Infusion Name Role Phone Laurent Coleman MD Primary Care Provider + [phone] Maggie Butler RN Unavailable Unavaila Kesha Pate RN Unavailable Unavailable Reason for Visit * Reason Comments ACO Quality Encounter Details Date Type Department Care Team (Late st Contact Info) Description 08/29/2024 ACO Medication Access [facility] Care Organization [address] [place] [address] 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 According to this report, Jardiance (empagliflozin) was last filled on 07/13/2024 for a 90 day supply. Goal is to have enough medicine so that 80% or more of the days are covered each year. Next Step: Due to potential high cost barriers, casualty underwriter sent YPlan message to assess if eligible for financial assistance through Medicare Extra Help, [employer] BI Cares (Jardiance) [employer] (Xarelto). Tia Villasenor CPhT Medication Cyber Security Manager [facility] ([facility]) & Accountable Care Organization (ACO) documented in this encounter Plan of Treatment Not on file documented as of this encounter Visit Diagnoses Not on filedocumented in this encounter Care Teams Rn Infusion Relationship Specialty Start Date End Date Laurent Coleman MD PCP - General 08/22/16 Maggie Butler, lap machine tender Failure Coordinator 07/07/23 Kesha Kitchen RN Heart Failure Coordinator 08/24/23 documented as of this encounter
== END 2024-08-30 08:25 | disposition home or self-care (01) ==
PROVIDERS: PCP Family Medicine; Visit Provider Nurse Practitioner Family
DX: K42.9 Umbilical hernia without obstruction or gangrene (principal); K76.0 Fatty (change of) liver, not elsewhere classified
CPT/HCPCS: 74177; Q9967

== ENCOUNTER 2024-10-06 08:00 | Outpatient (CLI) | payer MEDICARE, SELFPAY ==
--- NOTE | ~2024-10-06 | NM_ITS ---
EXAM: NM gastric emptying study DATE: 10/06/2024 12:54 INDICATION: Early satiety TECHNIQUE: A gastric emptying study was performed using the methodology of Radha AHUJA, et al. J Nucl Med 2007; 48:568-572. The patient was given a meal consisting of 2 scrambled eggs labeled with 0.99 mCi Tc-99m sulfur colloid, 2 slices of toast, two packages of jam, and approximately 120 mL of water. Simultaneous anterior and posterior 1-min images of the abdomen were obtained with the patient supin e at multiple time points over a total period of 4 hours. The geometric mean of anterior and posterio r views was determined, and the percentage retention was calculated for each time point. COMPARISON: None. FINDINGS: Gastric retention of the radiotracer-labeled meal was 79%, 41%, and 4% at the 1-hour, 2-hour, and 4-h our time points, respectively. With this technique, apparent rapid gastric emptying is suggested by < 30% gastric retention at 1 hour. Delayed gastric emptying is defined by gastric retention of >90% at 1 hour, >60% retention at 2 hours, or >10% retention at 4 hours. IMPRESSION: 1. Normal gastric emptying. Reviewed, dictated and finalized at location A. IMPRESSION: 1. Normal gastric emptying.
--- OUTSIDE RECORDS SUMMARY | 2024-10-06 08:07 | XMS_ITS | Encounter Summary ---
Author Organization [facility] Address [address] [place] [address] Care Team Providers Care Full Fashioned Garment Knitter Name Role Phone Laurent Coleman MD Primary Care Provider + [phone] Laurent Coleman MD Primary Care Provider + [phone] Maggie Butler RN Unavailable Unavaila Kesha Pate RN Unavailable Unavailable Encounter Details Date Type Department Care Team (Late st Contact Info) Description 05/29/2016 Orders Only [facility] ProviderJess MD [address] [place] [address] Social History Tobacco Use Types Packs/Day Years Used Date Smoking Tobacco: Never Alcohol Use Standard Drinks/Week Comments Yes 0 (1 standard drink = 0.6 oz pur e alcohol) Comments Unknown Sex and Gender Information Value Date Recorded Sex Assigned at Not on file 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
--- OUTSIDE RECORDS SUMMARY | 2024-10-06 08:07 | XMS_ITS | Continuity of Care Document ---
Author Organization [facility] Address [address] [place] [address] [address] [place] [address] Phone Care Team Providers Care Director Of Cardiac Cath Lab Name Role Phone Josiah Tamez Unavailable Unavailable Procedures Procedure Date Office/outpatient Visit, Est Office/outpatient Visit, Est Office/outpatient Visit, Est Advance Directives Directive Yes / No Effective Date File Name No Information Encounters Encounter Description Practice Location Reason(s) For Visit Diagnoses Date Provider Providers Copied on Encounter Office/outpat ient Visit, [facility], [address] [place] [address] [address], [place], [place], [id number], tel:[phone] SEC [facility] No Information 5-201 0 Dashawn Rahman. [address] [facility] [address] [facility] [place] , [address], [place], [place], [facility], . tel:[phone] Office/outpat ient Visit, [facility], [address] [place] [address] [address], [place], [place], [id number], [place] tel:[phone] SEC [facility] No Information 4-200 9 Dashawn Rahman. [address] [facility] [address] [facility] [place] , [address], [place], [place], [facility], . tel:[phone] Office/outpat ient Visit, [facility], [address] [place] [address] [address], [place], [place], [id number], tel:[phone] SEC [facility] No Information Jan-200 7 Tayoashlee Josiah. [address] , [address], [place], [address], [place]. tel:[phone] Family History Family Member Type Diagnosis Age At Onset No Information Payers Payer name Insurance type Covered libertarian ID Authoriza domoniuqemal(s) [facility] Out Of State [id number] Social History Type Description Quantity Date Captured [...]
--- OUTSIDE RECORDS SUMMARY | 2024-10-06 08:07 | XMS_ITS | Encounter Summary ---
Author Organization [facility] Address [address] [place] [address] Phone Care Team Providers Care Mat Cleaning Machine Operator Name Role Phone Laurent Coleman MD Primary Care Provider + [phone] Maggie Butler RN Unavailable Unavaila Kesha Pate RN Unavailable Unavailable Encounter Details Date Type Department Care Team (Late st Contact Info) Description 08/29/2024 Results Follow-Up [facility] Cardiology [address] [facility] [address] [place] [id number] Hadley Paredes MD [facility] [address] [place] [address] Social History Tobacco Use Types [...] on file 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
--- OUTSIDE RECORDS SUMMARY | 2024-10-06 08:07 | XMS_ITS | Encounter Summary ---
Author Organization [facility] Address [address] [place] [address] Phone Care Team Providers Care Brim Blocker Name Role Phone Laurent Coleman MD Primary Care Provider [phone] Maggie Butler RN Unavailable Unavaila ble Kesha Kitchen RN Unavailable Unavailable Reason for Visit * Consultation (Routine) - Authorized Specialty Diagnoses / Procedures Referred By Tata t Referred To Contact Cardiology Diagnoses Palpitations Laurent Coleman MD [address] [place] [address] Phone: tel: fax: [facility] (All Locations) Referral ID Status Reason Start Date Expiration Date Visits Requested Visits Authorized [id number] Authorized Specialty Services Required 09/01/2024 10/01/2025 12 12 Encounter Details Date Type Department Care Team (Late st Contact Info) Description 10/05/2024 9:30 AM CDT Office Visit [facility] Cardiology [address] [facility] 8th [place] [address] [place] [address] Neyda Fang NP [address] [facility] [address] [place] [address] Atrial fibrillation, unspecified type (HCC) (Primary Dx); Palpitations; Nonischemic cardiomyopathy (HCC) Social History Tobacco Use Types Packs/Day Years [...] on file 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 Gender Identity Not on file Sexual Orientation Not on file documented as of this encounter Last Filed Vital Signs Vital Sign Reading Time Taken Comments Blood Pressure 102/70 10/05/2024 9:29 AM CDT Pulse 71 10/05/2024 9:29 AM CDT Temperature - - Respiratory Rate - - Oxygen Saturation 97% 10/05/2024 9:29 AM CDT Inhaled Oxygen Concentration - - Weight 100.6 kg (221 lb 12.8 oz) 10/05/2024 9:29 AM CDT Height 170.2 cm (5' 7 ) 10/05/2024 9:29 AM CDT Body Mass Index 34.74 10/05/2024 9:29 AM CDT documented in this encounter Patient Instructions * Patient Instructions* Neyda Fang NP - 10/05/2024 9:30 AM CDT No changes today. Dr. Espinoza in [address] Gibbs as scheduled. 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 female with a past medical history significant for NICM who was last seen in clinic by Dr. Espinoza in February. She also follows with Dr. Avilez and saw him yesterday. Since we have seen her she continues to do well. Her biggest complaints today are ongoing fatigue and ROMERO. Today she reports no orthopnea, paroxysmal nocturnal dyspnea, peripheral edema, chest pain, syncope, near syncope, and palpitations. She has chronic fatigue and some ROMERO with steps specifically. No chest pain. No improvement with decreased losartan. Today she reports mild dyspnea on exertion or fatigue with daily activities. REVIEW OF SYSTEMS: Negative except for state in the HPI MEDICATIONS: Outpatient Encounter Medications as of 10/05/2024 Medication Sig Dispense Refill atorvastatin (LIPITOR) 40 mg tablet TAKE 1 TABLET DAILY 90 tablet 1 calcium carb/vit D3/minerals (CALTRATE 600+D PLUS MINERALS ORAL) Take 1 tablet by mouth daily carvediloL (COREG) 6.25 mg tablet TAKE 1 TABLET TWICE DAILY WITH MEALS 180 tablet 1 Jardiance 10 mg tablet TAKE 1 TABLET DAILY 90 tablet 3 losartan (COZAAR) 25 mg tablet TAKE 1 TABLET DAILY 90 tablet 3 rivaroxaban (Xarelto) 20 mg tablet TAKE 1 TABLET DAILY 90 tablet 2 spironolactone (ALDACTONE) 25 mg tablet TAKE 1 TABLET DAILY 90 tablet 3 No facility-administered encounter medications on file as of 10/05/2024. PHYSICAL EXAM: BP 102/70 (BP Location: Left arm, Patient Position: Sitting) Pulse 71 Ht 170.2 cm (5' 7 ) Wt 100.6 kg (221 lb 12.8 oz) SpO2 97% BMI 34.74 kg/mÂ² General: Well appearing, No pain or distress, well nourished HEENT: Within normal limits Neck: Supple, No carotid bruits, no JVD Respiratory: Clear to auscultation bilaterally; no wheezing/rales/rhonchi; respirations unlabored Cardiovascular: RRR, normal S1 and S2. No S3 or S4. No murmurs or rubs Gastrointestinal: soft, non-tender abdomen, no masses palpable Extremities: Warm and dry without edema Psychiatric: normal affect Neurologic: awake/alert, no focal deficits DIAGNOSTIC TESTING: Lab Results Component Value Date GLUCOSE 98 03/02/2024 CALCIUM 9.8 03/02/2024 SODIUM 143 03/02/2024 POTASSIUM 4.1 03/02/2024 CO2 30 03/02/2024 CHLORIDE 103 03/02/2024 BUNSER 13 03/02/2024 CREATININE 0.90 03/02/2024 Chemistry Lab Results Component Value Date SODIUM 143 03/02/2024 POTASSIUM 4.1 03/02/2024 CHLORIDE 103 03/02/2024 CO2 30 03/02/2024 ANIONGAP 10 03/02/2024 BUNSER 13 03/02/2024 CREATININE 0.90 03/02/2024 GLUCOSE 98 03/02/2024 CALCIUM 9.8 03/02/2024 BILITOT 1.0 03/02/2024 PROTEIN 6.7 11/11/2022 ALBUMIN 4.2 03/02/2024 GFRNAA 70 03/02/2024 ALKPHOS 90 03/02/2024 AST 22 03/02/2024 ALT 20 03/02/2024 Lab Results Component Value Date CHOL 193 01/19/2016 POCCHOL 131 01/12/2024 POCCHOL 149 11/10/2022 POCCHOL 163 11/08/2021 Lab Results Component Value Date HDL 60 01/19/2016 POCHDL 41 01/12/2024 POCHDL 57 11/10/2022 POCHDL 71 11/08/2021 Lab Results Component Value Date LDL 111 01/19/2016 POCLDL 69 01/12/2024 POCLDL 56 11/10/2022 POCLDL 73 11/08/2021 SCRLDL 69 08/05/2024 SCRLDL 64 07/24/2016 Lab Results Component Value Date TRIG 110 01/19/2016 POCTRIG 101 01/12/2024 POCTRIG 183 11/10/2022 POCTRIG 99 11/08/2021 Lab Results Component Value Date POCCHDLR 3.2 01/12/2024 POCCHDLR 1.0 11/10/2022 POCCHDLR 2.3 11/08/2021 Lab Results Component Value Date POCNONHDL 90 01/12/2024 POCNONHDL 92 11/10/2022 POCNONHDL 92 11/08/2021 Lab Results Component Value Date POCCHLPL 131 01/12/2024 POCCHLPL 149 11/10/2022 POCCHLPL 163 11/08/2021 Lab Results Component Value Date WBC 4.4 03/02/2024 HGB 13.8 03/02/2024 HCT 43.0 03/02/2024 MCV 96.2 03/02/2024 LABPLAT 282 03/02/2024 No results found for: HGBA1C ECHO: 07/2023 Normal left ventricular size. Mild concentric left ventricular hypertrophy. Mild global left ventricular systolic dysfunction. Impaired diastolic relaxation Grade I. Ejection fraction is visually estimated at 45-50 %. Ejection fraction is measured at 46 %. Global Longitudinal Strain is -11 %. GLS is abnormal. Normal right ventricular size. Normal right ventricular systolic function. There is moderate enlargement of left atrium. There is moderate enlargement of right atrium. Mild to moderate mitral valve regurgitation. Trivial pericardial effusion. DEVICE INTERROGATION: 07/2024 Normal parameters noted on battery and lead(s) --- 6 years remaining (this is an estimate based on prior usage) P wave out of range --- < 0.2mV. Fine AF noted Presenting Rhythm (IA) Ventricular Pacing (FRONT WORKER) Atrial Fibrillation or Flutter Arrhythmic events (AE) Atrial fibrillation and/or flutter with controlled ventricular rate Persistent atrial fibrillation and/or flutter Anticoagulation (AC) Patient prescribed Rivaroxaban (Xarelto) Patient on anticoagulant therapy Transmission Information (TI) Device Summary Report ASSESSMENT & PLAN: Problem List Items Addressed This Visit Cardiac and Vasculature A-fib (HCC) - Primary Persistent despite prior PVI. Per Dr. Paredes consider repeat PVI/AAD. She does not feel as though she was less symptomatic, SOB-fatigue when she was in sinus. Continue Coreg and xarelto. Nonischemic cardiomyopathy (HCC) (Chronic) HFimpEF. Systolic heart failure with an EF of 45%. Stable NYHA class II findings. Her ongoing complaints of fatigue/SOB did not improve with less losartan. We made no changes today continue losartan, coreg, jardiane and aldactone. Dr. Avilez as scheduled and Dr. Espinoza in 1 year. Palpitations Neyda Fang NP Cosigned by Isaak Espinoza MD PhD at 10/05/2024 3:07 PM CDT documented in this encounter Miscellaneous Notes * Assessment & Plan Note - Neyda Fang NP - 10/05/2024 12:38 PM CDT Associated Problem(s): Nonischemic cardiomyopathy (HCC) HFimpEF. Systolic heart failure with an EF of 45%. Stable NYHA class II findings. Her ongoing complaints of fatigue/SOB did not improve with less losartan. We made no changes today continue losartan, coreg, jardiane and aldactone. Dr. Avilez as scheduled and Dr. Espinoza in 1 year. * Assessment & Plan Note - Neyda Fang NP - 10/05/2024 12:33 PM CDT Associated Problem(s): A-fib (HCC) Persistent despite prior PVI. Per Dr. Paredes consider repeat PVI/AAD. She does not feel as though she was less symptomatic, SOB-fatigue when she was in sinus. Continue Coreg and xarelto. documented in this encounter Plan of Treatment Not on file documented as of this encounter Visit Diagnoses Diagnosis Atrial fibrillation, unspecified type (HCC)- Primary Palpitations Nonischemic cardiomyopathy (HCC) Other primary cardiomyopathies documented in this encounter Orders Outpatient Referral Count Last Ordered Date Fir st Ordered Date AMB REFERRAL TO CARDIOLOGY 1 10/05/2024 documented in this encounter Care Teams Brim Blocker Relationship Specialty Start Date End Date Laurent Coleman MD PCP - General 08/22/16 Maggie Butler, child care education coordinator Failure Coordinator 07/07/23 Kesha Kitchen RN Heart Failure Coordinator 08/24/23 documented as of this encounter
--- OUTSIDE RECORDS SUMMARY | 2024-10-06 08:07 | XMS_ITS | Continuity of Care Document ---
Author Name [facility] Address [address] [place] [address] Organization [facility] Care Team Providers Care Horticultural Worker Name Role Phone [facility] Unavailable Unavailable Allergies, Adverse Reactions, Alerts Substance Category Reaction Severity Reaction type Status Date Reported Comments Source penicillin Assertion Rash Moderate Drug allergy Active [facility] Keflex Assertion Rash Drug allergy Active [facility] sulfa drugs Assertion Rash Drug allergy Active [facility]
--- OUTSIDE RECORDS SUMMARY | 2024-10-06 08:07 | XMS_ITS | Encounter Summary ---
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 Gender Identity Not on file Sexual Orientation Not on file documented as of this encounter Plan of Treatment Not on file documented as of this encounter Procedures Procedure Name Priority Date/Time Associated Diagnosis Comments LIPID PANEL Routine 08/05/2024 4:16 PM CDT documented in this encounter Results * Lipid panel (08/05/2024 4:16 PM CDT) SCRIBED Cholesterol, Total 140 30 - 199 mg/dL [facility] SCRIBED Triglycerides 125 <=149 mg/dL [facility] SCRIBED HDL 50 >=40 mg/dL [facility] SCRIBED LDL 69 <=129 mg/dL [facility] Scribed Non-HDL Cholesterol 90 NONE mg/dL [facility] SCRIBED Total Cholesterol/HDL Ratio 140 NONE [facility] Blood us Historical Provider LAB BLOOD ORDERABLES Edit ed Result - Final [facility] documented in this encounter Visit Diagnoses Not on filedocumented in this encounter Care Teams Auction Block Clerk Relationship Specialty Start Date End Date Laurent Coleman MD PCP - General 08/22/16 Maggie Butler, otc clerk Failure Coordinator 07/07/23 Kesha Kitchen, otc clerk Failure Coordinator 08/24/23 documented as of this encounter
--- OUTSIDE RECORDS SUMMARY | 2024-10-06 08:07 | XMS_ITS | Referral Summary ---
Author Organization [facility] [address] [address] [place] [address] Care Team Providers Care Market Researcher Name Role Phone Laurent Coleman MD Primary Care Provider Maggie Butler RN Unavailable Unavaila Kesha Pate RN Unavailable Unavailable Encounters Date Type Department Care Team Description 10/05/2024 9:30 AM CDT Office Visit [facility] Cardiology [facility] 8th [place] [address] [place] [address] Neyda Fang NP Atrial fibrillation, unspecified type (HCC) (Primary Dx); Palpitations; Nonischemic cardiomyopathy (HCC) 10/04/2024 Orders Only [facility] Cardiology [address] [place] [address] [address] [place] [address] Jess Weber MD 10/04/2024 9:15 AM CDT Office Visit [facility] Cardiology [address] [place] [address] [address] [place] [address] Ramon Avilez MD Chronic anticoagulation (Primary Dx); Coronary artery disease involving [place] coronary artery of [place] heart without angina pectoris; HFrEF (heart failure with reduced ejection fraction) (HCC); Nonischemic cardiomyopathy (HCC) 08/29/2024 Results Follow-Up [facility] Cardiology [facility] Medical Office Building [address] [place] [address] Hadley Paredes MD 08/29/2024 ACO Medication Access [facility] Care Organization [address] [place] [address] Tia VillasenorGypsy 08/16/[address] [facility] Cardiology [address] [facility] Office Building [address] [place] [address] Hadley Paredes MD from Last 3 Months Allergies Active Allergy Reactions Criticality Noted Date Comments Cephalexin Rash Medium Metoprolol Fatigue Low 05/02/2021 intolerant Penicillin Rash Medium 05/27/2022 Childhood allergy Penicillin allergy history form completed Sulfa (Sulfonamide Antibiotics) Rash Medium Medications calcium carb/vit D3/minerals (CALTRATE 600+D PLUS MINERALS ORAL) Take 1 tablet by mouth daily Active rivaroxaban (Xarelto) 20 mg tabletIndications:Ch ronic anticoagulation TAKE 1 TABLET DAILY 90 tablet 2 4 Active carvediloL (COREG) 6.25 mg tablet TAKE 1 TABLET TWICE DAILY WITH MEALS 180 tablet 1 5 Active atorvastatin (LIPITOR) 40 mg tablet TAKE 1 TABLET DAILY 90 tablet 1 5 Active Jardiance 10 mg tablet TAKE 1 TABLET DAILY 90 tablet 3 5 Active spironolactone (ALDACTONE) 25 mg tablet TAKE 1 TABLET DAILY 90 tablet 3 5 Active losartan (COZAAR) 25 mg tablet TAKE 1 TABLET DAILY 90 tablet 3 5 Active Active Problems Problem Noted Date Diagnosed Date HFrEF (heart failure with reduced ejection fract ion) 06/23/2023 Dizziness 09/16/2022 Shortness of breath 09/16/2022 Pain in both lower extremities 09/16/2022 Sick sinus syndrome 07/30/2022 A-fib 07/30/2022 Assessment & Plan (10/05/2024 12:36 PM CDT): Persistent despite prior PVI. Per Dr. Paredes consider repeat PVI/AAD. She does not feel as though she was less symptomatic, SOB-fatigue when she was in sinus. Continue Coreg and xarelto. Biventricular cardiac pacemaker in situ 07/29/19 Overview (07/28/2022): Joya BIV Pacemaker. Dx; NICM, LBBB, Afib, First Degree AVB. DOI 07/30/2022- PatsyammyAmanda Griffin remote monitoring. SSS (sick sinus syndrome) 05/27/2022 Overview (06/20/2022): Added automatically from request for surgery [id number] Chronic anticoagulation 04/03/2022 Hip pain 01/10/2022 Mixed hyperlipidemia 05/02/2021 At risk for amiodarone toxicity with snf u se 05/02/2021 Persistent atrial fibrillation 03/01/2021 Nonischemic cardiomyopathy 03/01/2021 Assessment & Plan (10/05/2024 12:38 PM CDT): HFimpEF. Systolic heart failure with an EF of 45%. Stable NYHA class II findings. Her ongoing complaints of fatigue/SOB did not improve with less losartan. We made no changes today continue losartan, coreg, jardiane and aldactone. Dr. Avilez as scheduled and Dr. Espinoza in 1 year. Medication side effects 03/01/2021 Bradycardia 03/01/2021 Atrial fibrillation with RVR ([facility]/HCC) Unintentional weight loss 06/15/2018 Coronary artery disease invo lving [place] coronary artery of [place] heart without angina 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 [...] on file Legal Sex Female 2:35 AM HOME COMPANION Gender Identity Not on file Sexual Orientation Not on file Last Filed Vital Signs Vital Sign Reading Time Taken Comments Blood Pressure 102/70 10/05/2024 9:29 AM CDT Pulse 71 10/05/2024 9:29 AM CDT Temperature 36.6 C (97.8 F) 08/21/2023 2:11 PM CDT Respiratory Rate 14 01/12/2024 8:47 AM CDT Oxygen Saturation 97% 10/05/2024 9:29 AM CDT Inhaled Oxygen Concentration - - Weight 100.6 kg (221 lb 12.8 oz) 10/05/2024 9:29 AM CDT Height 170.2 cm (5' 7 ) 10/05/2024 9:29 AM CDT Body Mass Index 34.74 10/05/2024 9:29 AM CDT Plan of Treatment Not on file Medical Devices Implanted Type Area Clerical Warehouseman Device Identifier Shelf Expiration Date Model / Serial / Lot [employer] Vascade Mvp 6-12fr Venous Closure [id number] - [id number] Implanted:Qty : 1 on 06/08/2023 by Anjel Bateman MD at [facility] Collagen Right: Femoral Vein [employer] 03/02/2025 800-612 C-10U / / [id number] [employer] Vascade Mvp 6-12fr Venous Closure [id number] - [id number] Implanted:Qty : 1 on 06/08/2023 by Anjel Bateman MD at [facility] Collagen Right: Femoral Vein [employer] 09/02/2024 800-612 C-10U / / [id number] [employer] Tendril Sts 6fr 58cm Is-1 Connector Active Fixation Bipolar Soft 8tc/58 - [id number] - [id number] Implanted:Qty : 1 on 07/30/2022 by Anjel Bateman MD at [facility] Lead [employer] [id number] 04/23/2025 2088TC/ 58 / [id number] / [employer] Quartet 4.7fr 86cm Quadripolar Is-4 Llll Connector 8 Curve Low 1456q/86 - [id number] - [id number] Implanted:Qty : 1 on 07/30/2022 by Anjel Bateman MD at [facility] Lead [employer] [id number] 01/22/2025 1456Q/8 6 / [id number] / [employer] Tendril Sts 6fr 52cm Is-1 Connector Active Fixation Bipolar Soft - [id number] - [id number] Implanted:Qty : 1 on 07/30/2022 by Anjel Bateman MD at [facility] Lead Right: Atrial Appendage [employer] [id number] 05/24/2025/ 52 / [id number] / Joya Vascular Pacemaker Quadra Allure Mp Rf General House Worker-P Mri [id number] - [id number] - [id number] Implanted:Qty : 1 on 07/30/2022 by Anjel Bateman MD at [facility] Pacemaker Left: Infraclavicular Anterior Chest Wall [employer]a [employer] [id number] 01/23/2024 [id number] / [id number] / Procedures Procedure Name Priority Date/Time Associated Diagnosis Comments DEVICE CHECK - REMOTE Routine 08/16/2024 4:00 AM CDT LIPID PANEL Routine 08/05/2024 4:16 PM CDT from Last 3 Months Results * DEVICE [...] < 0.2mV. Fine AF noted Presenting Rhythm ([place]) Ventricular Pacing (STEWARD/STEWARDESS BATH) Atrial Fibrillation or Flutter Arrhythmic events (AE) [...] < 0.2mV. Fine AF noted Presenting Rhythm ([place]) Ventricular Pacing (STEWARD/STEWARDESS BATH) Atrial Fibrillation or Flutter Arrhythmic events (AE) Atrial fibrillation and/or flutter with controlled ventricular rate Persistent atrial fibrillation and/or flutter Anticoagulation (AC) Patient prescribed Rivaroxaban (Xarelto) Patient on anticoagulant therapy Transmission Information (TI) Device Summary Report Hadley Paredes MD [facility] PRO CEDURES Final Result * Lipid panel (08/05/2024 4:16 PM CDT) SCRIBED Cholesterol, Total 140 30 - 199 mg/dL [facility] SCRIBED Triglycerides 125 <=149 mg/dL [facility] SCRIBED HDL 50 >=40 mg/dL [facility] SCRIBED LDL 69 <=129 mg/dL [facility] Scribed Non-HDL Cholesterol 90 NONE mg/dL [facility] SCRIBED Total Cholesterol/HDL Ratio 140 NONE [facility] Blood Historical Provider LAB BLOOD ORDERABLES Edit ed Result - Final [facility] from Last 3 Months Insurance PENDING SALE TO [facility] MEDICARE PENDING SALE TO [facility] MEDICARE PENDING SALE TO [facility] MEDIC[facility] Advance Directives For more information, please contact: [phone] * Full Code (Latest Code Status on File) Date Activated Date Inactivated Comments 07/30/2022 11:05 AM 07/31/2022 4:22 PM Care Teams Market Researcher Relationship Specialty Start Date End Date Laurent Coleman MD PCP - General 08/22/16 Maggie Butler, cnc machine programmer Failure Coordinator 07/07/23 Kesha Kitchen RN Heart Failure Coordinator 08/24/23
--- OUTSIDE RECORDS SUMMARY | 2024-10-06 08:07 | XMS_ITS | Clinical Summary ---
Author Organization [facility] Address [address] [place] [address] Care Team Providers Care Electrician Supervisor Name Role Phone Laurent Coleman MD Primary Care Provider [phone] Immunizations Immunization Administration Dates Next Due Covid-19, Mrna, Lnp-s, Pf, 30 Mcg/0.3 Ml Dose (P atulzer) 04/12/2021 Social History Tobacco Use Types Packs/Day Years Used Date Smoking Tobacco: Never Assessed Comments No Sex and Gender Information Value Date Recorded Sex Assigned at Not on file Legal Sex Female 12:52 PM NEW ACCOUNT INTERVIEWER Gender Identity Not on file Sexual Orientation [...] Procedure Name Priority Date/Time Associated Diagnosis Comments [facility] SCREENING BILATERAL DIGITAL W CAD W CONTRERAS Routine 04/30/2024 9:45 AM NEW ACCOUNT INTERVIEWER Visit for screening mammogram [facility] BONE DENSITOMETRY AXIAL SKELETON Routine 04/21/2023 11:21 AM NEW ACCOUNT INTERVIEWER Menopausal and postmenopausal disorder Postmenopause from Last 3 Months or Most Recently Relevant to Health Maintenance Results * [facility] SCREENING BILATERAL DIGITAL W CAD W CONTRERAS (04/30/2024 9:45 AM NEW ACCOUNT INTERVIEWER) Anatomical Region Laterality Modality breast Bilateral Mammography 04/30/2024 10:0 5 AM NEW ACCOUNT INTERVIEWER Narrative 05/02/2024 6:47 AM NEW ACCOUNT INTERVIEWER - [facility] SCREENING BILATERAL DIGITAL W CAD W [...] is made to exams dated: 04/23/2023 [facility], 04/14/2022 [facility], and 03/05/2021 [facility]. BREAST TISSUE:There are scattered areas of fibroglandular [...] signed by: Ting Daniel M.D. ll/:05/01/2024 20:36:00 Evening Or Night Nurse Supervisor(s): RAQUEL SmithR)(M), [facility] letter sent: Normal Exam Reading location: [place] [...] Comparison is made to exams dated: 04/23/2023 [facility], 04/14/2022 [facility], and 03/05/2021 [facility]. BREAST TISSUE:There are scattered areas of fibroglandular [...] signed by: Ting Daniel M.D. ll/:05/01/2024 20:36:00 Evening Or Night Nurse Supervisor(s): RT Luis(R)(M), [facility] letter sent: Normal Exam Reading location: [place] Mammogram BI-RADS: Category 1: Negative us Laurent Guadalupe Coleman MD IMG MAMMO ORDERABLES Final Re sult * [facility] BONE DENSITOMETRY AXIAL SKELETON (04/21/2023 11:21 AM NEW ACCOUNT INTERVIEWER) Anatomical Region Laterality Modality BODY N/A Computed Radiogr aphy 04/21/2023 12:0 8 PM NEW ACCOUNT INTERVIEWER Impressions 04/21/2023 12:10 PM NEW ACCOUNT INTERVIEWER IMPRESSION: Low bone mass REFERENCE: Bone mineral [...] of Osteoporosis (http://www.nof.org/professionals/clinical-guidelines) Narrative 04/21/2023 12:10 PM NEW ACCOUNT INTERVIEWER EXAM DESCRIPTION: [facility] BONE DENSITOMETRY AXIAL SKELETON REASON FOR STUDY: 67 y/o year old F with given history of: Postmenopausal status. Patient took Boniva, stopping 5 years ago. Patient takes vitamin-D, multivitamin and calcium. Mold Yard Crane Operator/Model: Iotum (S/N [id number]) CLINICAL INFORMATION: Current height: 67 inches Maximum [...] Nay Villegas M.D. TW: TW Report ID: [id number] Reading Location: [id number] Procedure Note Nay Villegas MD - 04/21/2023 EXAM DESCRIPTION: [facility] BONE DENSITOMETRY AXIAL SKELETON REASON FOR STUDY: 67 y/o year old F with given history of: Postmenopausal status. Patient took Boniva, stopping 5 years ago. Patient takes vitamin-D, multivitamin and calcium. Mold Yard Crane Operator/Model: Iotum (S/N [id number]) CLINICAL INFORMATION: Current height: 67 inches Maximum [...] Nay Villegas M.D. TW: TW Report ID: [id number] Reading Location: [id number] IMPRESSION: Low bone mass REFERENCE: Bone mineral [...] Treatment of Osteoporosis (http://www.nof.org/professionals/clinical-guidelines) Viviana Bennett APRN, OPHTHALMIC PATHOLOGIST IMG DEXA ORDERABLES F inal Result from Last 3 Months or Most Recently Relevant to Health Maintenance Insurance MEDICARE C [employer]ET[employer] Care Teams Electrician Supervisor Relationship Specialty Start Date End Date Laurent Coleman MD [address] [place] [address] PCP - General Family Medicine 04/21/23
--- OUTSIDE RECORDS SUMMARY | 2024-10-06 08:07 | XMS_ITS | Clinical Summary ---
Author Organization [facility] [address] [facility] [address] [place] [address] Care Team Providers Care Skiver Counter Name Role Phone Laurent Coleman MD Primary Care Provider [phone] Maggie Butler RN Unavailable Unavaila Kesha Pate [...] LBBB, Afib, First Degree AVB. DOI 07/30/2022- Fransico. Edenilson. Elias remote monitoring. SSS (sick sinus syndrome) 05/27/2022 Overview (06/20/2022): Added automatically from request for surgery [id number] Chronic anticoagulation 04/03/2022 Hip pain 01/10/2022 Mixed hyperlipidemia 05/02/2021 At risk for amiodarone toxicity with care home u se 05/02/2021 Persistent atrial fibrillation 03/01/2021 [...] loss 06/15/2018 Coronary artery disease invo lving [place] coronary artery of [place] heart without angina 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 [...] Description 10/05/2024 9:30 AM CDT Office Visit [facility] Cardiology [address] [facility] 8th [place] [address] [place] [address] Neyda Fang NP Atrial fibrillation, unspecified type (HCC) (Primary Dx); Palpitations; Nonischemic cardiomyopathy (HCC) 10/04/2024 9:15 AM CDT Office Visit [facility] Medical Group Cardiology [address] [place] [address] Ramon Avilez MD Chronic anticoagulation (Primary Dx); Coronary artery disease involving [place] coronary artery of [place] heart without angina pectoris; HFrEF (heart failure with reduced ejection fraction) (HCC); Nonischemic cardiomyopathy (HCC) 10/04/2024 Orders Only [facility] Medical Group Cardiology [address] [place] [address] ProviderJess MD 08/29/2024 Results Follow-Up [facility] Cardiology [facility] Office Building [address] [place] [address] Hadley Paredes MD 08/29/2024 ACO Medication Access [facility] Accountable Care Organization [address] [place] [address] Tia Villasenor CPhT 08/16/2024 Orders Only [place] [address] [facility] Office Building [address] [place] [address] Hadley Paredes MD from Last 3 Months Immunizations Immunization Administration Dates Next Due Influenza, Unspecified 02/19/2021 Surgical History Surgery Date Site/Laterality Comments CATARACT EXTRACTION, BILATERAL Bilateral PARTIAL HYSTERECTOMY EAR SURGERY Right CATARACT EXTRACTION 04/2021 HYSTERECTOMY 1994 BLADDER SUSPENSION TUBAL LIGATION 1993 Medical History [...] on file Legal Sex Female 2:35 AM DOUBLE BACKER Gender Identity Not on file Sexual Orientation [...] 10/05/2024 9:29 AM CDT Plan of Treatment Health Maintenance Due Date Last Done Comments Colon Cancer Screening-Colonoscopy 1955 Depression Screening 1955 Hepatitis C Screening 1956 DTaP/Tdap/Td Vaccine (1 - Tdap) 1967 Hepatitis B Screening 1974 Pneumococcal vaccine 65+ (1 of 2 - PCV) 1975 Zoster Vaccine (1 of 2) 2006 Well Visit 65+ 2021 Covid-19 Vaccine ( - 2023-2 5 season) 2024 04/12/2021, 08/14/2020, 07/24/2020 Fall Risk Assessment 01/11/2025 01/12/2024, 06/08/2023, 08/26/2022 Osteoporosis Screening-Bone Density Scan 04/21/2025 04/21/2023, 04/21/2023 Breast Cancer Screening-Mammogram 04/30/2025 04/30/2024, 04/30/2024, 04/23/2023, Additional history exists Influenza Vaccine Completed 03/17/2024, , 02/19/2021, Additional history exists Medical Devices Implanted Type Area Hide And Skin Colerer Device Identifier Shelf Expiration Date Model / Serial / Lot [employer] Inc Vascade Mvp 6-12fr Venous Closure [id number] - [id number] Implanted:Qty : 1 on 06/08/2023 by Anjel Bateman MD at [facility] Collagen Right: Femoral Vein [employer] Inc 03/02/2025 800-612 C-10U / / [id number] [employer] Vascade Mvp 6-12fr Venous Closure [id number] - [id number] Implanted:Qty : 1 on 06/08/2023 by Anjel Bateman MD at [facility] Collagen Right: Femoral Vein [employer] Inc 09/02/2024 800-612 C-10U / / [id number] [employer] Tendril Sts 6fr 58cm Is-1 Connector Active Fixation Bipolar Soft 2088tc/58 - [id number] - [id number] Implanted:Qty : 1 on 07/30/2022 by Anjel Bateman MD at [facility] Lead [employer] [id number] 04/23/2025 2088TC/ 58 / [id number] / [employer] Quartet 4.7fr 86cm Quadripolar Is-4 Llll Connector 8 Curve Low 1456q/86 - [id number] - [id number] Implanted:Qty : 1 on 07/30/2022 by Anjel Bateman MD at [facility] Lead [employer] [id number] 01/22/2025 1456Q/8 6 / [id number] / [employer] Tendril Sts 6fr 52cm Is-1 Connector Active Fixation Bipolar Soft 2088tc/52 - [id number] - [id number] Implanted:Qty : 1 on 07/30/2022 by Anjel Bateman MD at [facility] Lead Right: Atrial Appendage [employer] [id number] 05/24/2025 2088TC/ 52 / [id number] / Joya V[employer] Pacemaker Quadra Allure Mp Rf Local Sales Manager-P Mri [id number] - [id number] - [id number] Implanted:Qty : 1 on 07/30/2022 by Anjel Bateman MD at [facility] Pacemaker Left: Infraclavicular Anterior Chest Wall [employer] [id number] 01/23/2024 [id number] / [id number] / Procedures Procedure Name Priority Date/Time Associated [...] AF noted Presenting Rhythm (FL) Ventricular Pacing (CALL CENTER SUPPORT CONSULTANT) Atrial Fibrillation or Flutter Arrhythmic events (AE) [...] AF noted Presenting Rhythm (FL) Ventricular Pacing (CALL CENTER SUPPORT CONSULTANT) Atrial Fibrillation or Flutter Arrhythmic events (AE) [...] Final [facility] from Last 3 Months Insurance [facility] MEDICARE [facility] MEDICARE [employer]ET[employer] MEDICARE Advance Directives For more information, please contact: [phone] * Full Code (Latest Code Status on File) Date Activated Date Inactivated Comments 07/30/2022 11:05 AM 07/31/2022 4:22 PM Care Teams Skiver Counter Relationship Specialty Start Date End Date Laurent Coleman MD PCP - General 08/22/16 Maggie Butler, promotions team leader Failure Coordinator 07/07/23 Kesha Kitchen RN Heart Failure Coordinator 08/24/23
== END 2024-10-06 08:01 | disposition home or self-care (01) ==
PROVIDERS: PCP Family Medicine; Visit Provider Nurse Practitioner Family
DX: R68.81 Early satiety (principal); R14.0 Abdominal distension (gaseous); R10.13 Epigastric pain
CPT/HCPCS: 78264; A9541

== ENCOUNTER 2024-12-09 00:19 | Day surgery (SDC) | payer MEDICARE, SELFPAY ==
[2024-11-29 10:39] VITALS: BMI 33.8
--- NOTE | 2024-12-05 10:56 | PC.NURSE ---
Spoke with patient regarding medication Xarelto. Patient verbalizes understanding that the last dose is to be taken on 12/05/24 and the Endoscopist will instruct them when to restart after the procedure.
--- OUTSIDE RECORDS SUMMARY | 2024-12-09 00:21 | XMS_ITS | Encounter Summary ---
Author Organization [facility] Address [address] [facility] [address] [place] [address] Care Team Providers Care Card Room Manager Name Role Phone Laurent Coleman MD Primary Care Provider + [phone] Laurent Coleman MD Primary Care Provider + [phone] Maggie Butler RN Unavailable Unavaila Kesha Pate RN Unavailable Unavailable Encounter Details Date Type Department Care Team (Late st Contact Info) Description 05/29/2016 Orders Only [facility] ProviderJess MD [address] [place] [address] Social History Tobacco Use Types Packs/Day Years Used Date Smoking Tobacco: Never Alcohol Use Standard Drinks/Week Comments Yes 0 (1 standard drink = 0.6 oz pur e alcohol) Comments Unknown Sex and Gender Information Value Date Recorded Sex Assigned at Not on file Legal Sex Female 2:35 AM PRINTING EQUIPMENT MECHANIC Gender Identity Not on file Sexual Orientation [...] documented as of this encounter Care Teams Card Room Manager Relationship Specialty Start Date End Date Laurent Coleman MD PCP - General 08/22/16 Laurent Coleman MD PCP - General 06/02/14 08/21/16 Maggie Butler, roof tile layer Failure Coordinator 07/07/23 Kesha Kitchen, roof tile layer Failure Coordinator 08/24/23 documented as of this encounter
--- OUTSIDE RECORDS SUMMARY | 2024-12-09 00:21 | XMS_ITS | Encounter Summary ---
Author Organization [facility] Address [address] [place] [address] Care Team Providers Care Owner Operator Name Role Phone Laurent Coleman MD Primary Care Provider [phone] Maggie Butler RN Unavailable Unavaila Kesha Pate RN Unavailable Unavailable Encounter Details Date Type Department Care Team (Late st Contact Info) Description 05/04/2017 Orders Only [facility] Health Information Management [address] [place] [id number] Scanning, Provider Social History Tobacco Use Types Packs/Day Years Used Date Smoking Tobacco: Never Smokeless Tobacco: Never Alcohol Use Standard Drinks/Week Comments Yes 0 (1 standard drink = 0.6 oz pur e alcohol) Comments Unknown Sex and Gender Information Value Date Recorded Sex Assigned at Not on file Legal Sex Female 2:35 AM ADMISSIONS SPECIALIST Gender Identity Not on file Sexual Orientation Not on file documented as of this encounter Plan of Treatment Not on file documented as of this encounter Procedures Procedure Name Priority Date/Time Associated Diagnosis Comments SCAN - RADIOLOGY/IMAGING 05/04/2017 documented in this encounter Results * SCAN - RADIOLOGY/IMAGING (05/04/2017) Anatomical Region Laterality Modality Other us Provider Scanning Final Result documented in this encounter Visit Diagnoses Not on filedocumented in this encounter Additional Health Concerns Infection Onset Date Last Indicated Resolved Time COVID: Suspected 08/21/2023 08/21/2023 08/21/2023 2:39 PM CDT documented as of this encounter Care Teams Owner Operator Relationship Specialty Start Date End Date Laurent Coleman MD PCP - General 08/22/16 Maggie Butler, natural sciences department chair Failure Coordinator 07/07/23 Kesha Kitchen, natural sciences department chair Failure Coordinator 08/24/23 documented as of this encounter
--- OUTSIDE RECORDS SUMMARY | 2024-12-09 00:21 | XMS_ITS | Referral Summary ---
Author Organization [facility] [address] [place] [phone] Care Team Providers Care Health And Wellness Coach Name Role Phone Laurent Coleman MD Primary Care Provider Maggie Butler RN Unavailable Unavaila Kesha Pate RN Unavailable Unavailable Encounters Date Type Department Care Team Description 12/02/2024 Telephone [facility] [address] [place] [address] [place] [phone] Chica Avilez MD 11/28/2024 Results Follow-Up [facility] [address] [place] [address] [place] [phone] Chica Avilez MD NM MPI SPECT (Rest and/or Stress) Multiple Studies 11/23/2024 7:45 AM CDT Ancillary Procedure [facility] [address] [place] [address] [place] [phone] Left bundle branch block (LBBB); Regional wall motion abnormality of heart; ROMERO (dyspnea on exertion) 11/08/2024 Telephone [facility] [address] [place] [address] [place] [phone] Chica Avilez MD 11/08/2024 Results Follow-Up [facility] [address] [place] [address] [place] [phone] Chica Avilez MD Transthoracic Echo (TTE) Complete W Doppler/CF 11/03/2024 8:15 AM CDT Ancillary Procedure [facility] [address] [place] [address] Coronary artery disease involving [place] coronary artery of [place] heart without angina pectoris; HFrEF (heart failure with reduced ejection fraction) (HCC); Nonischemic cardiomyopathy (HCC) 10/05/2024 9:30 AM CDT Office Visit [facility] [address] [facility] 8th [place] [address] [place] [address] Neyda Fang NP Atrial fibrillation, unspecified type (HCC) (Primary Dx); Palpitations; Nonischemic cardiomyopathy (HCC) 10/04/2024 Orders Only [facility] [address] [facility] [address] [place] [address] ProviderJess MD 10/04/2024 9:15 AM CDT Office Visit [facility] [address] [place] [address] [address] [place] [phone] Chica Avilez MD Chronic anticoagulation (Primary Dx); Coronary artery disease involving [place] coronary artery of [place] heart without angina pectoris; HFrEF (heart failure with reduced ejection fraction) (HCC); Nonischemic cardiomyopathy (HCC) from Last 3 Months Allergies Active Allergy [...] DAILY 90 tablet 2 05/16/20 24 Active Jardiance 10 mg tablet TAKE 1 TABLET DAILY 90 tablet 3 07/13/19 25 Active spironolactone (ALDACTONE) 25 mg tablet TAKE 1 TABLET DAILY 90 tablet 3 07/13/19 25 Active losartan (COZAAR) 25 mg tablet TAKE 1 TABLET DAILY 90 tablet 3 08/30/19 25 Active atorvastatin (LIPITOR) 40 mg tablet TAKE 1 TABLET DAILY 90 tablet 1 12/01/19 25 Active carvediloL (COREG) 6.25 mg tablet TAKE 1 TABLET TWICE DAILY WITH MEALS 180 tablet 1 12/01/19 25 Active carvediloL (COREG) 6.25 mg tablet TAKE 1 TABLET TWICE DAILY WITH MEALS 180 tablet 1 07/08/19 25 025 Discontinued atorvastatin (LIPITOR) 40 mg tablet TAKE 1 TABLET DAILY 90 tablet 1 07/08/19 025 Discontinued Hospital, Clinic, or Other Facility Administered Medication Ordered Dose Route Frequency Start Date End Date Status aminophylline 250 mg/10 mL injection 100 mgIndications:ROMERO (dyspnea on exertion) 100 mg IV Once 11/23/2024 11/23/2024 Ended Active Problems Problem Noted Date Diagnosed Date [...] Afib, First Degree AVB. DOI 07/30/2022- Kahanda. Pyle. Elias remote monitoring. 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 Adverse effect of drug 09/02/2016 Overview (10/17/2016): Medication side effects, initial encounter Atrial paroxysmal tachycardia ([facility]) 02/29/20 16 Overview (08/28/2016): Atrial tachycardia, paroxysmal [...] on file 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 Gender Identity Not on file Sexual Orientation [...] 9:29 AM CDT Height 170.2 cm (5' 7) 10/05/2024 9:29 AM CDT Body Mass Index 34.74 10/05/2024 9:29 AM CDT Plan of Treatment Not on file Medical Devices Implanted Type Area Glassware Defect Repairer Device Identifier Shelf Expiration Date Model / Serial / Lot [employer] Vascade Mvp 6-12fr Venous Closure [id number] - [id number] Implanted:Qty : 1 on 06/08/2023 by Anjel Bateman MD at [facility] Collagen Right: Femoral Vein [employer] 03/02/2025 [id number] C-10U / / [id number] [employer] Vascade Mvp 6-12fr Venous Closure [id number] - [id number] Implanted:Qty : 1 on 06/08/2023 by Anjel Bateman MD at [facility] Collagen Right: Femoral Vein [employer] 09/02/2024 [id number] C-10U / / [id number] [employer] Tendril Sts 6fr 58cm Is-1 Connector Active Fixation Bipolar Soft 2088tc/58 - [id number] - [id number] Implanted:Qty : 1 on 07/30/2022 by Anjel Bateman MD at [facility] Lead [employer] [id number] 04/23/2025 2088TC/ 58 / [id number] / [employer] Quartet 4.7fr 86cm Quadripolar Is-4 Llll Connector 8 Curve Low 1456q/86 - [id number] - [id number] Implanted:Qty : 1 on 07/30/2022 by Anjel Bateman MD at [facility] Lead [employer] [id number] 01/22/2025 1456Q/8 6 / [id number] / [employer] Tendril Sts 6fr 52cm Is-1 Connector Active Fixation Bipolar Soft 2087tc/52 - [id number] - [id number] Implanted:Qty : 1 on 07/30/2022 by Anjel Bateman MD at [facility] Lead Right: Atrial Appendage [employer] [id number] 05/24/2025 2088TC/ 52 / [id number] / [employer] Pacemaker Quadra Allure Mp Rf Records Analysis Manager-P Mri [id number] - [id number] - [id number] Implanted:Qty : 1 on 07/30/2022 by Anjel Bateman MD at [facility] Pacemaker Left: Infraclavicular Anterior Chest Wall [employer] [id number] 01/23/2024 [id number] / [id number] / Procedures Procedure Name Priority Date/Time Associated Diagnosis Comments NM MPI SPECT (REST AND/OR STRESS) MULTIPLE STUDIES Schedule Routine, Read Routine (OP Routine) 11/23/2024 10:10 AM CDT Left bundle branch block (LBBB) Regional wall motion abnormality of heart ROMERO (dyspnea on exertion) TRANSTHORACIC ECHO (TTE) COMPLETE W DOPPLER/CF WO CONTRAST Routine 11/03/2024 9:01 AM CDT Coronary artery disease involving [place] coronary artery of [place] heart without angina pectoris HFrEF (heart failure with reduced ejection fraction) (HCC) Nonischemic cardiomyopathy (HCC) from Last 3 Months Results * NM MPI SPECT (Rest and/or Stress) Multiple Studies (11/23/2024 10:10 AM CDT) Anatomical Region Laterality Modality Body N/A Nuclear Medicine 11/23/2024 8:33 AM CDT Narrative 11/24/2024 5:46 PM CDT [facility] [address] [facility] [address], [place] [address] [address] [facility] [address], [place] [address] [address] [place] [address] P:[phone] P:[phone] MPI Imaging Report Patient Name: HEATHER ALEXANDRE E : 1955 Study Date: 11/23/2024 8:33:50 AM Gender: F Tech: [facility] Location: [facility] Provider: CHICA AVILEZ Height(Cm): 170.2 BSA: Weight(Kg): 100.6 BMI: 34.73 Order Provider: CHICA AVILEZ PHYSICIAN: Primary Care Physician: Dr. Coleman. [facility] Physician: Chandra Avilez M.D. Stress Supervision: Guido Tinsley M.D., F.A.C.C. Stress Interpreting Physician: Guido Tinsley M.D., [place] Image Interpreting Physician: Iker Ferro M.D.,Brittney. PROCEDURES: Pharmacologic SPECT Report: Myocardial perfusion imaging with Tc99M Sestamibi SPECT at rest and stress post regadenoson (Lexiscan) infusion. INDICATIONS: Fatigue, Family Hx CAD, High Cholesterol, I44.7 Left bundle-branch block, unspecified, R93.1 Abnormal findings on diagnostic imaging of heart and coronary circulation, and R06.09 Other forms of dyspnea. FINDINGS: Procedural Findings: One day rest/stress was used. Tc99m Sestamibi injected IV at rest was 12.4 millicuries 37.1 millicuries of Tc99M Sestamibi injected IV during Lexiscan stress Lexiscan 0.4mg administered IV over 10 seconds. Pharmacologic stress related symptoms and/or side effects during infusion include dizziness, hypotensive (90/60 mmHg). Symptoms were resolved with 100 mg of aminophylline IVP. Baseline heart rate was 81 BPM Maximum Heart Rate Achieved was: 121 BPM Baseline blood pressure was 122/78 mmHg Post Stress Blood Pressure was 122/70 mmHg Termination: Protocol complete. Resting ECG: Atrial fibrillation. RBBB. Post ECG: Findings do not meet strict criteria for ischemia. Perfusion Findings: Normal perfusion imaging. No definite fixed or reversible defects. A TID of 0.93 was automatically calculated. LV Function: Global left ventricular function is normal. Left ventricular ejection fraction is 57 %. CONCLUSIONS: Global left ventricular function is normal. Left ventricular ejection fraction is 57 %. Myocardial perfusion imaging is normal. Baseline EKG showed AFib, RBBB. Negative EKG portion of the pharmacological stress test. Correlate with the SPECT. Electronically Signed By: Guido Tinsley MD, [facility] 11/23/2024 12:22:32 PM CDT Electronically Signed By: Iker Ferro MD, [facility] 11/24/2024 4:49:12 PM CDT Procedure Note Iker Ferro MD - 11/24/2024 [facility] [address], [place] [address] [address] [facility] [id number], [place] [address], [place] [address] P:[phone] P:[phone] MPI Imaging Report Patient Name: HEATHER ALEXANDRE E : 1955 Study Date: 11/23/2024 8:33:50 AM Gender: F [facility] Provider: CHICA AVILEZ Height(Cm): 170.2 BSA: Weight(Kg): 100.6 BMI: 34.73 Order Provider: CHICA AVILEZ PHYSICIAN: Primary Care Physician: Dr. Coleman. [facility] Physician: Chadnra Avilez M.D. Stress Supervision: Guido Tinsley M.D., F.A.C.C. Stress Interpreting Physician: Guido Tinsley M.D., F.A.C.C. Image Interpreting Physician: Iker Ferro M.D.,F.A.C.C. PROCEDURES: Pharmacologic SPECT Report: Myocardial perfusion imaging with Tc99M Sestamibi SPECT at rest and stresspost regadenoson (Lexiscan) infusion. INDICATIONS: Fatigue, Family Hx CAD, High Cholesterol, I44.7 Left bundle-branch block,unspecified, R93.1 Abnormal findings on diagnostic imaging of heart and coronarycirculation, and R06.09 Other forms of dyspnea. FINDINGS: Procedural Findings: One day rest/stress was used. Tc99m Sestamibi injected IV at rest was 12.4 millicuries 37.1 millicuries of Tc99M Sestamibi injected IV during Lexiscan stress Lexiscan 0.4mg administered IV over 10 seconds. Pharmacologic stress related symptoms and/or side effects duringinfusion include dizziness, hypotensive (90/60 mmHg). Symptoms were resolved with 100 mg of aminophylline IVP. Baseline heart rate was 81 BPM Maximum Heart Rate Achieved was: 121 BPM Baseline blood pressure was 122/78 mmHg Post Stress Blood Pressure was 122/70 mmHg Termination: Protocol complete. Resting ECG: Atrial fibrillation. RBBB. Post ECG: Findings do not meet strict criteria for ischemia. Perfusion Findings: Normal perfusion imaging. No definite fixed or reversible defects. A TIDof 0.93 was automatically calculated. LV Function: Global left ventricular function is normal. Left ventricular ejectionfraction is 57 %. CONCLUSIONS: Global left ventricular function is normal. Left ventricular ejectionfraction is 57 %. Myocardial perfusion imaging is normal. Baseline EKG showed AFib, RBBB. Negative EKG portion of thepharmacological stress test. Correlate with the SPECT. Electronically Signed By: Guido Tinsley MD, [facility] 11/23/2024 12:22:32 PM CDT Electronically Signed By: Iker Ferro MD, [facility] 11/24/2024 4:49:12 PM CDT Chica Avilez MD IMG NM PROCEDURES Final R esult * TRANSTHORACIC ECHO (TTE) COMPLETE W DOPPLER/CF WO CONTRAST (11/03/2024 9:01 AM CDT) Estimated EF 55 % CONS SCIMAGE EF Mod BP 55 % CONS SCIMAGE Anatomical Region Laterality Modality Ultrasound 11/03/2024 8:09 AM CDT Narrative 11/03/2024 12:57 PM CDT [facility] [address], [place] [address] [address] [facility] [address], [place] [address] P:[phone] P:[phone] Echocardiographic Report Patient Name: HEATHER ALEXANDRE E : 1955 Study Date: 11/03/2024 8:09:54 AM Gender: F Tech: [facility] Location: [facility] Provider: CHICA AVILEZ Height(Cm): 170 BSA: 2.18 Weight(Kg): 100.2 Heart Rate: 70 BP: 102 / 70 Quality: Good Order Provider: CHICA AVILEZ PROCEDURES: Echocardiographic Report: Transthoracic echocardiogram with complete 2D, M-Mode, and color Doppler examination. With Strain Analysis. INDICATIONS: I25.10 Atherosclerotic heart disease of [place] coronary artery without angina pectoris, I50.20 Unspecified systolic (congestive) heart failure, and I42.8 Other cardiomyopathies. MEASUREMENTS: 2D/MM Value Range Doppler Value Range EF Mod BP 55 % [ 54 - 74 ] BENJAMIN Vmax 2.01 cm2 [ 2.00 - 4.00 ] Estimated EF 55 % AV Mean PG 4 mmHg LVIDd 2D 5.60 cm [ 3.80 - 5.20 ] AV Peak Sachin 1.32 m/s [ 1.00 - 1.70 ] LVIDs 2D 3.93 cm [ 2.20 - 3.50 ] AV Peak PG 7 mmHg LVPWd 2D 0.87 cm [ 0.60 - 0.90 ] AV VTI 28.01 cm IVSd 2D 0.94 cm [ 0.60 - 0.90 ] LVOT Diam 1.97 cm [ 1.70 - 2.10 ] LA Volume Index 53 cc/m2 [ 16 - 34 ] LVOT Peak Sachin 0.81 m/s [ 0.70 - 1.10 ] LVOT VTI 17.11 cm PV Peak Sachin 0.82 m/s [ 0.40 - 0.80 ] TR Peak Sachin 3.19 m/s [ 1.00 - 2.80 ] TR Peak PG 41 mmHg 2D/MM Value Range Doppler Value Range - FINDINGS: Interpretation Site: Exam was interpreted at [facility]. Left Ventricle: Normal left ventricular wall thickness. Mild enlargement of left ventricle cavity. Normal global left ventricular systolic function. There is restrictive diastolic dysfunction Grade III to IV. Ejection fraction is measured at 55 %. Ejection Fraction is visually estimated to be 55 %. Global Longitudinal Strain is -14 %. GLS is abnormal. These segments of the LV are hypokinetic: anterolateral segment. Right Ventricle: Normal right ventricular size. Normal right ventricular systolic function. Left Atrium: There is severe enlargement of left atrium. Right Atrium: There is mild enlargement of right atrium. Atrial Septum: Normal atrial septum. Mitral Valve: Mild mitral annular calcification. Moderate mitral valve regurgitation. There is no hemodynamically significant mitral stenosis by Doppler. Aortic Valve: No evidence of hemodynamically significant aortic stenosis by Doppler. Aortic cusps appear mildly sclerotic. Trileaflet aortic valve. Mild aortic valve regurgitation. Tricuspid Valve: Normal appearance of the tricuspid valve. Moderate pulmonary hypertension based on right ventricular systolic pressure. Estimated peak RVSP is 45-50 mmHg. Mild tricuspid regurgitation. Pulmonic Valve: Normal appearance of the pulmonic valve. No pulmonic stenosis. Mild pulmonic regurgitation. Pericardium: Small pericardial effusion. Aorta: No aortic root dilation. IVC: Normal size and normal respiratory collapse consistent with normal right atrial pressure (<5 mmHg). CONCLUSIONS: Normal left ventricular wall thickness. Mild enlargement of left ventricle cavity. Normal global left ventricular systolic function. There is restrictive diastolic dysfunction Grade III to IV. Ejection fraction is measured at 55 %. Ejection Fraction is visually estimated to be 55 %. Global Longitudinal Strain is -14 %. GLS is abnormal. These segments of the LV are hypokinetic: anterolateral segment. There is severe enlargement of left atrium. There is mild enlargement of right atrium. Mild mitral annular calcification. Moderate mitral valve regurgitation. Aortic cusps appear mildly sclerotic. Mild aortic valve regurgitation. Moderate pulmonary hypertension based on right ventricular systolic pressure. Estimated peak RVSP is 45-50 mmHg. Mild tricuspid regurgitation. Mild pulmonic regurgitation. Small pericardial effusion. Normal sinus rhythm. Electronically Signed By: Chica Avilez MD 11/03/2024 12:57:14 PM CDT Procedure Note Chica Avilez MD - 11/03/2024 [facility] [address], [place] [address] [address] [facility] [address], [place] [address] P:[phone] P:[phone] Echocardiographic Report Patient Name: HEATHER ALEXANDRE E : 1955 Study Date: 11/03/2024 8:09:54 AM Gender: F Tech: [facility] Location: [facility] Provider: CHICA AVILEZ Height(Cm): 170 BSA: 2.18 Weight(Kg): 100.2 Heart Rate: 70 BP: 102 / 70 Quality: Good Order Provider: CHICA AVILEZ PROCEDURES: Echocardiographic Report: Transthoracic echocardiogram with complete 2D, M-Mode, and color Dopplerexamination. With Strain Analysis. INDICATIONS: I25.10 Atherosclerotic heart disease of [place] coronary artery withoutangina pectoris, I50.20 Unspecified systolic (congestive) heart failure, and I42.8 Othercardiomyopathies. MEASUREMENTS: 2D/MM Value Range Doppler ValueRange EF Mod BP 55 % [ 54 - 74 ] BENJAMIN Vmax 2.01cm2 [ 2.00 - 4.00 ] Estimated EF 55 % AV Mean PG 4mmHg LVIDd 2D 5.60 cm [ 3.80 - 5.20 ] AV Peak Sachin 1.32m/s [ 1.00 - 1.70 ] LVIDs 2D 3.93 cm [ 2.20 - 3.50 ] AV Peak PG 7mmHg LVPWd 2D 0.87 cm [ 0.60 - 0.90 ] AV VTI 28.01cm IVSd 2D 0.94 cm [ 0.60 - 0.90 ] LVOT Diam 1.97 cm[ 1.70 - 2.10 ] LA Volume Index 53 cc/m2 [ 16 - 34 ] LVOT Peak Sachin 0.81m/s [ 0.70 - 1.10 ] LVOT VTI 17.11 cm PV Peak Sachin 0.82 m/s [ 0.40 - 0.80 ] TR Peak Sachin 3.19 m/s [ 1.00 - 2.80 ] TR Peak PG 41 mmHg 2D/MM Value Range Doppler ValueRange - FINDINGS: Interpretation Site: Exam was interpreted at [facility]. Left Ventricle: Normal left ventricular wall thickness. Mild enlargement of left ventriclecavity. Normal global left ventricular systolic function. There is restrictive diastolicdysfunction Grade III to IV. Ejection fraction is measured at 55 %. Ejection Fractionis visually estimated to be 55 %. Global Longitudinal Strain is -14 %. GLS isabnormal. These segments of the LV are hypokinetic: anterolateral segment. Right Ventricle: Normal right ventricular size. Normal right ventricular systolicfunction. Left Atrium: There is severe enlargement of left atrium. Right Atrium: There is mild enlargement of right atrium. Atrial Septum: Normal atrial septum. Mitral Valve: Mild mitral annular calcification. Moderate mitral valve regurgitation.There is no hemodynamically significant mitral stenosis by Doppler. Aortic Valve: No evidence of hemodynamically significant aortic stenosis by Doppler.Aortic cusps appear mildly sclerotic. Trileaflet aortic valve. Mild aortic valveregurgitation. Tricuspid Valve: Normal appearance of the tricuspid valve. Moderate pulmonary hypertensionbased on right ventricular systolic pressure. Estimated peak RVSP is 45-50 mmHg. Mildtricuspid regurgitation. Pulmonic Valve: Normal appearance of the pulmonic valve. No pulmonic stenosis. Mildpulmonic regurgitation. Pericardium: Small pericardial effusion. Aorta: No aortic root dilation. IVC: Normal size and normal respiratory collapse consistent with normal rightatrial pressure (<5 mmHg). CONCLUSIONS: Normal left ventricular wall thickness. Mild enlargement of left ventriclecavity. Normal global left ventricular systolic function. There is restrictive diastolicdysfunction Grade III to IV. Ejection fraction is measured at 55 %. Ejection Fractionis visually estimated to be 55 %. Global Longitudinal Strain is -14 %. GLS isabnormal. These segments of the LV are hypokinetic: anterolateral segment. There is severe enlargement of left atrium. There is mild enlargement of right atrium. Mild mitral annular calcification. Moderate mitral valve regurgitation. Aortic cusps appear mildly sclerotic. Mild aortic valve regurgitation. Moderate pulmonary hypertension based on right ventricular systolicpressure. Estimated peak RVSP is 45-50 mmHg. Mild tricuspid regurgitation. Mild pulmonic regurgitation. Small pericardial effusion. Normal sinus rhythm. Electronically Signed By: Chica Avilez MD 11/03/2024 12:57:14 PM CDT Chica Avilez MD CV ECHO PROCEDURES Final Result from Last 3 Months Insurance [facility] MEDICARE [employer] MEDICARE [employer] MEDICARE Advance Directives For more information, please contact: [phone] * Full Code (Latest Code Status on File) Date Activated Date Inactivated Comments 07/30/2022 11:05 AM 07/31/2022 4:22 PM Care Teams Health And Wellness Coach Relationship Specialty Start Date End Date Laurent Coleman MD PCP - General 08/22/16 Maggie Butler, slime plant operator Failure Coordinator 07/07/23 Kesha Kitchen RN Heart Failure Coordinator 08/24/23
--- OUTSIDE RECORDS SUMMARY | 2024-12-09 00:21 | XMS_ITS | Continuity of Care Document ---
Author Organization [facility] Address [address] [place] [address] [address] [place] [address] Phone Care Team Providers Care Science Job Titles Name Role Phone Josiah Tamez Unavailable Unavailable Procedures Procedure Date Office/outpatient Visit, Est Office/outpatient Visit, Est Office/outpatient Visit, Est Advance Directives Directive Yes / No Effective Date File Name No Information Encounters Encounter Description Practice Location Reason(s) For Visit Diagnoses Date Provider Providers Copied on Encounter Office/outpat ient Visit, [facility], [address] [place] [address] [address], [place], [place], [id number], tel:[phone] [facility] No Information 5-201 0 Dashawn Rahman. [address], [place], [place], [facility], . tel:[phone] Office/outpat ient Visit, [facility], [address] [place] [address] [address], [place], [place], [id number], [place] tel:[phone] [facility] No Information 4-200 9 Dashawn Rahman. [address] [address], [place], [place], [facility], . tel:[phone] Office/outpat ient Visit, [facility], [address] [place] [address] [address], [place], [place], [id number], tel:[phone] [facility] No Information Jan-200 7 Tayoashlee Josiah. [address] , [address], [place], [address], [place]. tel:[phone] Family History Family Member Type Diagnosis Age At Onset No Information Payers Payer name Insurance type Covered republican ID Authoriza domoniquemal(s) [facility] Out Of State [id number] Social History Type Description Quantity Date Captured [...]
--- OUTSIDE RECORDS SUMMARY | 2024-12-09 00:21 | XMS_ITS | Encounter Summary ---
Author Organization [facility] Healthcare Address [address] [place] [address] Care Team Providers Care Sand Filler Name Role Phone Laurent Coleman MD Primary Care Provider + [phone] Maggie Butler RN Unavailable Unavaila Kesha Pate RN Unavailable Unavailable Encounter Details Date Type Department Care Team (Late st Contact Info) Description 11/28/2024 Results Follow-Up [facility] Group Cardiology [address] [place] [phone] [place] [address] [place] [address] C [facility] [address] [facility], [facility] [address]10 [place] [address] [place] MPI SPECT (Rest and/or Stress) Multiple Studies Social History Tobacco Use Types Packs/Day Years [...] on file 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
--- OUTSIDE RECORDS SUMMARY | 2024-12-09 00:21 | XMS_ITS | Encounter Summary ---
Author Organization [facility] Healthcare Address [address] [place] [address] Care Team Providers Care Home Visits Nurse Name Role Phone Laurent Coleman MD Primary Care Provider + [phone] Maggie Butler RN Unavailable Unavaila Kesha Pate RN Unavailable Unavailable Encounter Details Date Type Department Care Team (Latest Contact Info) Description 11/08/2024 Results Follow-Up [facility] Medical [facility] Cardiology [address] [phone] Ramon Avilez MD [address] [facility] [place] [address] [facility] [address]10 [place] [address] Transthoracic Echo (TTE) Complete W Doppler/CF Social History Tobacco Use Types Packs/Day Years [...] on file 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
--- OUTSIDE RECORDS SUMMARY | 2024-12-09 00:21 | XMS_ITS | Clinical Summary ---
Author Organization [facility] [address] Address [address] [place] [address] Care Team Providers Care Main Line Station Engineer Name Role Phone Laurent Coleman MD Primary Care Provider + [phone] Maggie Butler RN Unavailable Unavaila Kesha Pate [...] TABLET DAILY 90 tablet 1 07/08/19 25 025 Discontinued Hospital, Clinic, or Other Facility [...] First Degree AVB. DOI 07/30/2022- Kahanda. Pyle. [place] remote monitoring. SSS (sick sinus syndrome) 05/27/2022 Overview (06/20/2022): Added automatically from request for surgery [id number] Chronic anticoagulation 04/03/2022 Hip pain 01/10/2022 Mixed hyperlipidemia 05/02/2021 At risk for amiodarone toxicity with prison u se 05/02/2021 Persistent atrial fibrillation 03/01/2021 Nonischemic cardiomyopathy 03/01/2021 Assessment & Plan (10/05/2024 12:38 PM CDT): HFimpEF. Systolic heart failure with an EF of 45%. Stable NYHA class II findings. Her ongoing complaints of fatigue/SOB did not improve with less losartan. We made no changes today continue losartan, coreg, jardiane and aldactone. Dr. Stockton as scheduled and Dr. Espinoza in 1 year. Medication side effects 03/01/2021 Bradycardia 03/01/2021 Atrial fibrillation with RVR (CMS/HCC) Unintentional weight loss 06/15/2018 Coronary artery disease invo lving rampart coronary artery of rampart heart without angina 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 [...] Type Department Care Team Description 12/02/2024 Telephone [facility] Cardiology [address] [place] [address] Chica Stockton MD 11/28/2024 Results Follow-Up [facility] Cardiology [address] [place] [address] [place] [phone] Chica Stockton MD [place] MPI SPECT (Rest and/or Stress) Multiple Studies 11/23/2024 7:45 AM CDT Ancillary Procedure [facility] Cardiology [address] [place] [address] [place] [phone] Left bundle branch block (LBBB); Regional wall motion abnormality of heart; ROMERO (dyspnea on exertion) 11/08/2024 Telephone [facility] Cardiology [address] [place] [address] [place] [phone] Chica Stockton MD 11/08/2024 Results Follow-Up [facility] Cardiology [address] [place] [address] [place] [phone] Chica Stockton MD Transthoracic Echo (TTE) Complete W Doppler/CF 11/03/2024 8:15 AM CDT Ancillary Procedure [facility] Cardiology [address] [place] [address] [place] [phone] Coronary artery disease involving rampart coronary artery of rampart heart without angina pectoris; HFrEF (heart failure with reduced ejection fraction) (HCC); Nonischemic cardiomyopathy (HCC) 10/05/2024 9:30 AM CDT Office Visit [facility] [address] [facility] 8th [place] [address] [place] [phone] Neyda Fang NP Atrial fibrillation, unspecified type (HCC) (Primary Dx); Palpitations; Nonischemic cardiomyopathy (HCC) 10/04/2024 9:15 AM CDT Office Visit [facility] Cardiology [address] [place] [address] [place] [phone] Chica Stockton MD Chronic anticoagulation (Primary Dx); Coronary artery disease involving rampart coronary artery of rampart heart without angina pectoris; HFrEF (heart failure with reduced ejection fraction) (HCC); Nonischemic cardiomyopathy (HCC) 10/04/2024 Orders Only [facility] Cardiology [address] [place] [address] Provider, MD Jess from Last 3 Months Immunizations Immunization Administration [...] on file 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 Gender Identity Not on file Sexual Orientation [...] Fall Risk Assessment 01/11/2025 01/12/2024, 06/08/2023, 08/26/2022 Influenza Vaccine (#1) 2025 , 02/26/2023, 02/19/2021, Additional history exists Osteoporosis Screening-Bone Density Scan 04/21/2025 04/21/2023, 04/21/2023 Breast Cancer Screening-Mammogram 04/30/2025 04/30/2024, 04/30/2024, 04/23/2023, Additional history exists Medical Devices Implanted Type Area Planer Operator / Grader Device Identifier Shelf Expiration Date Model / Serial / Lot [employer] Vascade Mvp 6-12fr Venous Closure [id number] - [id number] Implanted:Qty : 1 on 06/08/2023 by Anjel Bateman MD at [facility] Right: Femoral Vein [employer] 03/02/2025 [id number] C-10U / / [id number] [employer] Vascade Mvp 6-12fr Venous Closure [id number] - [id number] Implanted:Qty : 1 on 06/08/2023 by Anjel Bateman MD at [facility] Collagen Right: Femoral Vein [employer] 09/02/2024 800-612 C-10U / / [id number] [employer] Tendril Sts 6fr 58cm Is-1 Connector Active Fixation Bipolar Soft 2088tc/58 - [id number] - [id number] Implanted:Qty : 1 on 07/30/2022 by Anjel Bateman MD at [facility] Lead [employer] [id number] 04/23/2025 2088TC/ 58 / [id number] / [employer] Quartet 4.7fr 86cm Quadripolar Is-4 Llll Connector 8 Curve Low 1456q/86 - [id number] - [id number] Implanted:Qty : 1 on 07/30/2022 by Anjel Bateman MD at [facility] Lead [employer] [id number] 01/22/2025 1456Q/8 6 / [id number] / [employer] Tendril Sts 6fr 52cm Is-1 Connector Active Fixation Bipolar Soft 8tc/52 - [id number] - [id number] Implanted:Qty : 1 on 07/30/2022 by Anjel Bateman MD at [facility] Lead Right: Atrial Appendage [employer] [id number] 05/24/2025 2088TC/ 52 / [id number] / [employer] Pacemaker Quadra Allure Mp Rf Apprentice Plumber-P Mri [id number] - [id number] - [id number] Implanted:Qty : 1 on 07/30/2022 by Anjel Bateman MD at [facility] Pacemaker Left: Infraclavicular Anterior Chest Wall [employer] [id number] 01/23/2024 [id number] / [id number] / Procedures Procedure Name Priority Date/Time Associated Diagnosis Comments NM MPI SPECT (REST AND/OR STRESS) MULTIPLE STUDIES Schedule Routine, Read Routine (OP Routine) 11/23/2024 10:10 AM CDT Left bundle branch block (LBBB) Regional wall motion abnormality of heart ROMERO (dyspnea on exertion) TRANSTHORACIC ECHO (TTE) COMPLETE W DOPPLER/CF WO CONTRAST Routine 11/03/2024 9:01 AM CDT Coronary artery disease involving rampart coronary artery of rampart heart without angina pectoris HFrEF (heart failure with reduced ejection fraction) (HCC) Nonischemic cardiomyopathy (HCC) from Last 3 Months Results * NM MPI SPECT (Rest and/or Stress) Multiple Studies (11/23/2024 10:10 AM CDT) Anatomical Region Laterality Modality Body N/A Nuclear Medicine 11/23/2024 8:33 AM CDT Narrative 11/24/2024 5:46 PM CDT [facility] Cardiology [address], [place] [address] [address] [facility] [address], [place] [phone] [place] [address] P:[phone] P:[phone] MPI Imaging Report Patient Name: HEATHER ALEXANDRE E : 1955 Study Date: 11/23/2024 8:33:50 AM Gender: F Tech: [facility] Location: [facility] Provider: CHICA STOCKTON Height(Cm): 170.2 BSA: Weight(Kg): 100.6 BMI: 34.73 Order Provider: CHICA STOCKTON PHYSICIAN: Primary Care Physician: Dr. Coleman. [facility] Physician: Chandra Stockton M.D. Stress Supervision: Guido Tinsley M.D., F.A.CAmandaC. Stress Interpreting Physician: Guido Tinsley M.D., F.A.CAmandaCAmanda Image Interpreting Physician: Iker Ferro M.D.,F.AAmandaCTrupti PROCEDURES: Pharmacologic SPECT Report: Myocardial perfusion imaging [...] SPECT. Electronically Signed By: Guido Tinsley MD, [facility] 11/23/2024 12:22:32 PM CDT Electronically Signed By: Iker Ferro MD, [facility] 11/24/2024 4:49:12 PM CDT Procedure Note Iker Ferro MD - 11/24/2024 [facility] Cardiology [address], [place] [address] [address] [facility] [address], [place] [address], [place] [address] P:[phone] P:[phone] MPI Imaging Report Patient Name: HEATHER ALEXANDRE E : 1955 Study Date: 11/23/2024 8:33:50 AM Gender: F Tech: [facility] Location: [facility] Provider: CHICA STOCKTON Height(Cm): 170.2 BSA: Weight(Kg): 100.6 BMI: 34.73 Order Provider: CHICA STOCKTON PHYSICIAN: Primary Care Physician: Dr. Coleman. [facility] Physician: Chandra Stockton M.D. Stress Supervision: Guido Tinsley M.D., F.A.C.C. [...] SPECT. Electronically Signed By: Guido Tinsley MD, [facility] 11/23/2024 12:22:32 PM CDT Electronically Signed By: Iker Ferro MD, [facility] 11/24/2024 4:49:12 PM CDT us Chica Stockton MD IMG NM PROCEDURES Final R esult * TRANSTHORACIC ECHO (TTE) COMPLETE W DOPPLER/CF WO CONTRAST (11/03/2024 9:01 AM CDT) Estimated EF 55 % CONS SCIMAGE EF Mod BP 55 % CONS SCIMAGE Anatomical Region Laterality Modality Ultrasound 11/03/2024 8:09 AM CDT Narrative 11/03/2024 12:57 PM CDT [facility] Cardiology [address] [facility] [address], [place] [address] [address], [place] [address] P:[phone] P:[phone] Echocardiographic Report Patient Name: HEATHER ALEXANDRE E : 1955 Study Date: 11/03/2024 8:09:54 AM Gender: F Tech: [facility] Location: [place] Ref Provider: CHICA STOCKTON Height(Cm): 170 BSA: 2.18 Weight(Kg): 100.2 Heart Rate: 70 BP: 102 / 70 Quality: Good Order Provider: CHICA STOCKTON PROCEDURES: Echocardiographic Report: Transthoracic echocardiogram with complete 2D, M-Mode, and color Doppler examination. With Strain Analysis. INDICATIONS: I25.10 Atherosclerotic heart disease of rampart coronary artery without angina pectoris, I50.20 Unspecified [...] FINDINGS: Interpretation Site: Exam was interpreted at [facility]. Left Ventricle: Normal left ventricular wall thickness. [...] Normal sinus rhythm. Electronically Signed By: Chica Stockton MD 11/03/2024 12:57:14 PM CDT Procedure Note Chica Stockton MD - 11/03/2024 [facility] Cardiology [address] [facility] [address], [place] [address] [address] [facility] [address] [address] P:[phone] P:[phone] Echocardiographic Report Patient Name: HEATHER ALEXANDRE E : 1955 Study Date: 11/03/2024 8:09:54 AM Gender: F Tech: [facility] Location: [facility] Provider: CHICA STOCKTON Height(Cm): 170 BSA: 2.18 Weight(Kg): 100.2 Heart Rate: 70 BP: 102 / 70 Quality: Good Order Provider: CHICA STOCKTON PROCEDURES: Echocardiographic Report: Transthoracic echocardiogram with complete 2D, M-Mode, and color Dopplerexamination. With Strain Analysis. INDICATIONS: I25.10 Atherosclerotic heart disease of rampart coronary artery withoutangina pectoris, I50.20 Unspecified systolic [...] FINDINGS: Interpretation Site: Exam was interpreted at [facility]. Left Ventricle: Normal left ventricular wall thickness. [...] Normal sinus rhythm. Electronically Signed By: Chica Stockton MD 11/03/2024 12:57:14 PM CDT Chica Stockton MD CV ECHO PROCEDURES Final Result from Last 3 Months Insurance AETNA MEDICARE AETNA MEDICARE AETNA MEDICARE Advance Directives For more information, please contact: [phone] * Full Code (Latest Code Status on File) Date Activated Date Inactivated Comments 07/30/2022 11:05 AM 07/31/2022 4:22 PM Care Teams Main Line Station Engineer Relationship Specialty Start Date End Date Laurent Coleman MD PCP - General 08/22/16 Maggie Butler, outside production inspector Failure Coordinator 07/07/23 Kesha Kitchen RN Heart Failure Coordinator 08/24/23
--- OUTSIDE RECORDS SUMMARY | 2024-12-09 00:21 | XMS_ITS | Clinical Summary ---
Author Organization [facility] Address [address] [place] [address] Care Team Providers Care Pre K Teacher Name Role Phone Laurent Coleman MD Primary Care Provider [phone] Immunizations Immunization Administration Dates Next Due Covid-19, Mrna, Lnp-s, Pf, 30 Mcg/0.3 Ml Dose (P atulzer) 04/12/2021 Social History Tobacco Use Types Packs/Day Years Used Date Smoking Tobacco: Never Assessed Comments No Sex and Gender Information Value Date Recorded Sex Assigned at Not on file Legal Sex Female 12:52 PM PROCESSING SPEC Gender Identity Not on file Sexual Orientation Not on file Plan of Treatment Health Maintenance Due Date Last Done Comments Hepatitis C Virus (HCV) Screening 1955 TdaP Immunization 1955 Cologuard 2001 Colonoscopy 2001 Colorectal Cancer Screening 2001 Immunochemical Fecal Occult Blood 2001 SARS-COV-2 Immunization ( season) 2024 04/11/2024, 02/20/2023, 03/21/2022, Additional history exists Influenza Immunization (#1) 01/23/202502/23, 02/26/2023, 03/13/2022, Additional history exists DEXA Bone Density 04/21/2025 04/21/2023 Mammogram 04/30/2025 04/30/2024, 04/23/2023 Zoster Immunization Completed 06/13/2021, 10/26/202 1 Pneumococcal Immunization (50+ years) Completed 01/15/2023 Pneumococcal Immunization Combined Discontinued 01/15/2023 Respiratory Syncytial Virus (RSV) Immunization (Adult) Completed 04/18/2023 Hepatitis B Immunization Aged Out No longer eligible based on patient's age to complete this topic Human Papillomavirus (HPV) Immunization Aged Out No longer eligible based on patient's age to complete this topic Meningococcal Immunization (ACWY) Aged Out No longer eligible based on patient's age to complete this topic Rotavirus Immunization Aged Out No lo nger eligible based on patient's age to complete this topic Procedures Procedure Name Priority Date/Time Associated Diagnosis Comments [facility] SCREENING BILATERAL DIGITAL W CAD W CONTRERAS Routine 04/30/2024 9:45 AM PROCESSING SPEC Visit for screening mammogram [facility] BONE DENSITOMETRY AXIAL SKELETON Routine 04/21/2023 11:21 AM PROCESSING SPEC Menopausal and postmenopausal disorder Postmenopause from Last 3 Months or Most Recently Relevant to Health Maintenance Results * [facility] SCREENING BILATERAL DIGITAL W CAD W CONTRERAS (04/30/2024 9:45 AM PROCESSING SPEC) Anatomical Region Laterality Modality breast Bilateral Mammography 04/30/2024 10:0 5 AM PROCESSING SPEC Narrative 05/02/2024 6:47 AM PROCESSING SPEC - [facility] SCREENING BILATERAL DIGITAL W CAD [...] is made to exams dated: 04/23/2023 [facility], 04/14/2022 [facility], and 03/05/2021 [facility]. BREAST TISSUE:There are scattered areas of fibroglandular [...] signed by: Ting Daniel M.D. ll/:05/01/2024 20:36:00 Delimber Operator(s): RT Luis(R)(M), [facility] letter sent: Normal Exam Reading location: [place] Mammogram BI-RADS: Category 1: Negative Procedure Note Ting Daniel MD - 05/02/2024 - [facility] SCREENING BILATERAL DIGITAL W CAD W CONTRERAS BILATERAL DIGITAL SCREENING MAMMOGRAM 3D/2D WITH CAD WITH MEDIOLATERAL OBLIQUE CRANIOCAUDAL: 04/30/2024 The study was acquired using digital technology and interpreted from soft copy. Current study was also evaluated with Adeyoh version 7.2. 2D digital mammographic views, as well as 3D digital tomosynthesis were performed in the CC and MLO projections. CLINICAL: Routine screening. Patient has no complaints. Pacemaker left chest. No personal history of cancer. No family history of breast cancer. COMPARISONS: Comparison is made to exams dated: 04/23/2023 [facility], 04/14/2022 [facility], and 03/05/2021 [facility]. BREAST TISSUE:There are scattered areas of fibroglandular [...] signed by: Ting Daniel M.D. ll/:05/01/2024 20:36:00 Delimber Operator(s): RT Luis(R)(M), [facility] letter sent: Normal Exam Reading location: [place] Mammogram BI-RADS: Category 1: Negative us Laurent F Schueler MD IMG MAMMO ORDERABLES Final Re sult * [facility] BONE DENSITOMETRY AXIAL SKELETON (04/21/2023 11:21 AM PROCESSING SPEC) Anatomical Region Laterality Modality BODY N/A Computed Radiogr aphy 04/21/2023 12:0 8 PM PROCESSING SPEC Impressions 04/21/2023 12:10 PM PROCESSING SPEC IMPRESSION: Low bone mass REFERENCE: Bone mineral [...] of Osteoporosis (http://www.nof.org/professionals/clinical-guidelines) Narrative 04/21/2023 12:10 PM PROCESSING SPEC EXAM DESCRIPTION: [facility] BONE DENSITOMETRY AXIAL SKELETON REASON FOR STUDY: 67 y/o year old F with given history of: Postmenopausal status. Patient took Boniva, stopping 5 years ago. Patient takes vitamin-D, multivitamin and calcium. Container Maker/Model: Rue La La (S/N [id number]) CLINICAL INFORMATION: Current height: 67 inches Maximum [...] Nay Villegas M.D. TW: TW Report ID: [id number] Reading Location: [place] [address] Procedure Note Nay Villegas MD - 04/21/2023 EXAM DESCRIPTION: [facility] BONE DENSITOMETRY AXIAL SKELETON REASON FOR STUDY: 67 y/o year old F with given history of: Postmenopausal status. Patient took Boniva, stopping 5 years ago. Patient takes vitamin-D, multivitamin and calcium. Container Maker/Model: Rue La La (S/N [id number]) CLINICAL INFORMATION: Current height: 67 inches Maximum [...] Nay Villegas M.D. TW: TW Report ID: [id number] Reading Location: [place] [address] IMPRESSION: Low bone mass REFERENCE: Bone mineral [...] to Prevention and Treatment of Osteoporosis (http://www.nof.org/professionals/clinical-guidelines) us Viviana Bennett MASTER BLACK BELT, ACCOUNT DEVELOPMENT ASSOCIATE IMG DEXA ORDERABLES F inal Result from Last 3 Months or Most Recently Relevant to Health Maintenance Insurance MEDICARE C AETNA Care Teams Pre K Teacher Relationship Specialty Start Date End Date Laurent Coleman MD [address] [place] [address] PCP - General Family Medicine 04/21/23
--- OUTSIDE RECORDS SUMMARY | 2024-12-09 00:21 | XMS_ITS | Encounter Summary ---
Author Organization [facility] Address [address] [place] [address] Care Team Providers Care Blow Pit Helper Name Role Phone Laurent Coleman MD Primary Care Provider [phone] Maggie Butler RN Unavailable Unavaila Kesha Pate RN Unavailable Unavailable Encounter Details Date Type Department Care Team (Late st Contact Info) Description 12/02/2024 Telephone [facility] Cardiology [address] [place] [address] Ramon Avilez MD [address] [facility] [address] [place] [address] [facility], [place] [address] [place] [address] Social History Tobacco Use Types Packs/Day Years [...] on file 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 Will route to [facility] to review and provide recommendations so we can fill out and fax back. Please advise * Telephone Encounter - Germaine Cortes RN - 12/02/2024 8:40 AM CDT Cardiac clearance request scanned under media. Will forward to Manoj to have MAF sign today. * Telephone Encounter - Nikki Butler - 12/02/2024 8:34 AM CDT Adrianne from [facility] states she faxed a cardiac clearance request to RN fax on 11/16 andagain on 11/29. Last dose is Thursday and pt is scheduled on 12/09. Requesting call with an update. Contact: documented in this encounter Plan of Treatment Not on file documented as of this encounter Visit Diagnoses Not on filedocumented in this encounter Care Teams Blow Pit Helper Relationship Specialty Start Date End Date Laurent Coleman MD PCP - General 08/22/16 Maggie Butler, mill work Failure Coordinator 07/07/23 Kesha Kitchen RN Heart Failure Coordinator 08/24/23 documented as of this encounter
--- OUTSIDE RECORDS SUMMARY | 2024-12-09 00:22 | XMS_ITS | Continuity of Care Document ---
Author Name [facility] Address [address] [place] [address] Organization [facility] Care Team Providers Care Strip Stamp Straightener Name Role Phone [facility] Unavailable Unavailable Allergies, Adverse Reactions, Alerts Substance Category Reaction Severity Reaction type Status Date Reported Comments Source penicillin Assertion Rash Moderate Drug allergy Active [facility] Keflex Assertion Rash Drug allergy Active [facility] sulfa drugs Assertion Rash Drug allergy Active [facility]
[2024-12-09 08:18] VITALS: BP 105/69; PULSE 70; RESP 16; TEMP 36.3; O2SAT 98; BMI 34.6
[2024-12-09] MEDS: LACTATED RINGERS 1,000 ML 150 ML IV CONT (08:37)
--- NOTE | 2024-12-09 08:50 | P.PNAN_ITS ---
Anes - Initial Pre Proc Eval Procedure: Operation Date: 12/09/24 09:30 Proposed Procedures p Screening Colonoscopy - Joe Cohen MD Date/Time: 12/09/24 08:50 Surgeon: Joe Cohen MD Pre Op Diagnosis: screening Patient Data Age: 69 Gender: F Height: 1.7 m Weight: 100.3 kg Last Vital Signs Temp 36.3 C L 12/09/24 08:18 Pulse 70 12/09/24 08:18 Resp 16 12/09/24 08:18 BP 105/69 12/09/24 08:18 Pulse Ox 98 12/09/24 08:18 O2 Del Method Room Air 12/09/24 08:18 Allergies Allergy/AdvReac Type Severity Reaction Status Date / Time ampicillin Allergy Unknown Unknown Verified 12/09/24 08:28 cephalexin Allergy Unknown Unknown Verified 12/09/24 08:28 ciprofloxacin Allergy Unknown Unknown Verified 12/09/24 08:28 Penicillins Allergy Unknown Unknown Verified 12/09/24 08:28 Sulfa (Sulfonamide Allergy Unknown Unknown Verified 12/09/24 08:28 Antibiotics) metoprolol AdvReac Intermediate lethargic Verified 12/09/24 08:28 Home Medications ?Medication ?Instructions ?Recorded ?Confirmed ?Type rivaroxaban 20 mg tablet (Xarelto) 20 mg PO DAILY 10/29/20 12/09/24 History calcium 300 mg-D3 20 mcg-magnesium 1 tablet PO DAILY 02/13/22 12/09/24 History 25 mg-coppr 0.5 bh-waar-hlyb tablet (Caltrate-D3 Plus Minerals) atorvastatin 40 mg tablet 40 mg PO DAILY 09/19/22 12/09/24 History carvedilol 6.25 mg tablet 6.25 mg PO BID 01/15/23 12/09/24 History empagliflozin 10 mg tablet 10 mg PO DAILY 09/17/23 12/09/24 History (Jardiance) losartan 25 mg tablet 25 mg PO DAILY 09/17/23 12/09/24 History spironolactone 25 mg tablet 25 mg PO DAILY 09/17/23 12/09/24 History Patient hx anesthesia problems: none Family hx anesthesia problems: none Results Review: All pre-operative results and documents have been reviewed as part of the pre- operative evaluation. [facility] Past Medical History Medical History (Updated 12/08/24 @ 13:46 by Davey Rodriguez DO) TIMOTHY (obstructive sleep apnea) Pacemaker Cardiomyopathy CHF (congestive heart failure) EF 45-50% Obese Postprandial abdominal bloating Early satiety Peripheral arterial disease Depression Glucosuria Hematuria Frequency of micturition Incarcerated umbilical hernia H/O cardiac pacemaker Shortness of breath Screening for malignant neoplasm of breast CAD (coronary artery disease) LBBB (left bundle branch block) Atrial fibrillation Surgical History Surgical History Hx of cataract surgery Apr 2021 Family History Family History Mother Hypertension Family history of diabetes mellitus in first degree relative Family history of coronary artery disease Atrial fibrillation Grandparent Cerebrovascular accident Father Depression Sibling Atrial fibrillation Other Family history of malignant neoplasm Social History Social History Smoking status: Never smoker Second hand tobacco smoke exposure: No Alcohol intake: never Alcohol use details: previous hx of 1-2 per year Substance use: never Substance use type: does not use Do You Feel Safe in your Home?: Yes Lack of Transportation: No Lack of Food: Never True Current Housing: I Have Housing Concerned About Future Housing: No Difficulty Paying Gas/Electric Bills: No Difficulty Paying for Meds: No Currently Unemployed: No Education: Associate Degree Difficulty w/ Childcare or Family Care: No Living arrangements: with family Occupation/Education: retired 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 Informed Consent: The patient's anesthetic plan and its attendant risks and benefits were discussed with the patient/family/POA. Questions were solicited and answers provided to the satisfaction of the patient/family/POA.
--- NOTE | 2024-12-09 09:11 | PM.IMHP ---
H&P: HPI History of Present Illness Date/Time: 12/09/24 09:11 Chief Complaint: Screening colonoscopy Narrative: This is the patient's 3rd colonoscopy. There are no GI symptoms and there is no family history of colorectal cancer. Review of Systems Review of Systems: All systems reviewed & are unremarkable except as noted in HPI and below PMFSH Past Medical History Medical History (Updated 12/09/24 @ 09:11 by Joe Cohen MD) TIMOTHY (obstructive sleep apnea) Pacemaker Cardiomyopathy CHF (congestive heart failure) EF 45-50% Obese Postprandial abdominal bloating Early satiety Peripheral arterial disease Depression Glucosuria Hematuria Frequency of micturition Incarcerated umbilical hernia H/O cardiac pacemaker Shortness of breath Screening for malignant neoplasm of breast CAD (coronary artery disease) LBBB (left bundle branch block) Atrial fibrillation Surgical History Surgical History Hx of cataract surgery Apr 2021 Family History Family History Mother Hypertension Family history of diabetes mellitus in first degree relative Family history of coronary artery disease Atrial fibrillation Grandparent Cerebrovascular accident Father Depression Sibling Atrial fibrillation Other Family history of malignant neoplasm Social History Social History Smoking status: Never smoker Second hand tobacco smoke exposure: No Alcohol intake: never Alcohol use details: previous hx of 1-2 per year Substance use: never Substance use type: does not use Do You Feel Safe in your Home?: Yes Lack of Transportation: No Lack of Food: Never True Current Housing: I Have Housing Concerned About Future Housing: No Difficulty Paying Gas/Electric Bills: No Difficulty Paying for Meds: No Currently Unemployed: No Education: Associate Degree Difficulty w/ Childcare or Family Care: No Living arrangements: with family Occupation/Education: retired 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 Gender identity (if verbalized by the patient): Female Spiritual care concerns: No Meds Home Medications and Allergies Home Medications ?Medication ?Instructions ?Recorded ?Confirmed ?Type rivaroxaban 20 mg tablet (Xarelto) 20 mg PO DAILY 10/29/20 12/09/24 History calcium 300 mg-D3 20 mcg-magnesium 1 tablet PO DAILY 02/13/22 12/09/24 History 25 mg-coppr 0.5 yr-wkia-bhre tablet (Caltrate-D3 Plus Minerals) atorvastatin 40 mg tablet 40 mg PO DAILY 09/19/22 12/09/24 History carvedilol 6.25 mg tablet 6.25 mg PO BID 01/15/23 12/09/24 History empagliflozin 10 mg tablet 10 mg PO DAILY 09/17/23 12/09/24 History (Jardiance) losartan 25 mg tablet 25 mg PO DAILY 09/17/23 12/09/24 History spironolactone 25 mg tablet 25 mg PO DAILY 09/17/23 12/09/24 History Allergies Allergy/AdvReac Type Severity Reaction Status Date / Time ampicillin Allergy Unknown Unknown Verified 12/09/24 08:28 cephalexin Allergy Unknown Unknown Verified 12/09/24 08:28 ciprofloxacin Allergy Unknown Unknown Verified 12/09/24 08:28 Penicillins Allergy Unknown Unknown Verified 12/09/24 08:28 Sulfa (Sulfonamide Allergy Unknown Unknown Verified 12/09/24 08:28 Antibiotics) metoprolol AdvReac Intermediate lethargic Verified 12/09/24 08:28 Vital Signs Vital Signs - 24 hr 12/09/24 08:18 Temperature 97.3 F L Pulse Rate 70 Respiratory Rate 16 Blood Pressure 105/69 Pulse Oximetry 98 Oxygen Delivery Room Air Exam Const: General: cooperative and healthy appearing Resp: Effort & Inspection: normal respiratory effort and able to speak in complete sentences Auscultation: clear to auscultation bilaterally Cardio: Rate: regular rate Rhythm: regular rhythm GI: Inspection: normal to inspection GI Palp: No No hepatosplenomegaly present Auscultation: normal bowel sounds Rectal Exam: deferred Skin: General skin exam: normal color Psych: Appearance: grossly normal Mental Status: mental status grossly normal Assessment and Plan Assessment and plan (1) Encounter for screening colonoscopy: Code(s): Z12.11 - Encounter for screening for malignant neoplasm of colon Status: Acute Assessment and Plan: The patient is deemed a good candidate for the procedure. Consent signed. Will proceed.
--- NOTE | 2024-12-09 09:40 | S_PTH ---
PATIENT: Heather Hernandez LOC: [facility] Rain#:[id number] AGE/SX: 69/F ROOM: RE12/09/[address]: Joe Cohen MD : [id number] BED: DIS: 12/09/2024 SPEC #: [id number] RECD: 12/09/24 10:16 STATUS: UCHE REEris #: [id number] ALDAIR: 12/09/24 09:[address]: Joe Cohen DEPT: [facility] [place] Surgical RECD BY: Maryam Robledo ENTERED: 12/09/24 10:16 SP TYPE: Surgical OTHR DR: Laurent Coleman MD Tissues: A - Colon Polypectomy Procedures: Hematoxylin and Eosin Stain Gross and Microscopic Level 4
[2024-12-09 09:44] VITALS: BP 105/60; PULSE 70; RESP 25; O2SAT 98
[2024-12-09 09:54] VITALS: BP 117/66; PULSE 72; RESP 21; O2SAT 98
[2024-12-09 10:04] VITALS: BP 115/70; PULSE 69; RESP 21; O2SAT 99
== END 2024-12-09 10:16 | disposition home or self-care (01) ==
PROVIDERS: PCP Family Medicine; Referring Provider Nurse Practitioner Family; Visit Provider Internal Medicine Gastroenterology
PROC: 0DJD8ZZ Inspection of Lower Intestinal Tract, Via Natural or Artificial Opening Endoscopic (ICD-10-PCS; CPT 45378; principal; 2024-12-09 09:30)
DX: Z12.11 Encounter for screening for malignant neoplasm of colon (principal); D12.3 Benign neoplasm of transverse colon; K57.30 Diverticulosis of large intestine without perforation or abscess without bleeding; E66.9 Obesity, unspecified; Z68.34 Body mass index [BMI] 34.0-34.9, adult
CPT/HCPCS: 45385; 88305; J2003; J2704; J7120

== ENCOUNTER 2025-01-12 18:46 | Emergency (ER) | payer MEDICARE, SELFPAY ==
--- OUTSIDE RECORDS SUMMARY | 2003-05-24 19:00 | XMS_ITS | Continuity of Care Document ---
Author Name [facility] Address [address] [place] [address] Organization [facility] Care Team Providers Care Real Estate Appraiser Supervisor Name Role Phone [facility] Unavailable Unavailable Allergies, Adverse Reactions, Alerts Substance Category Reaction Severity Reaction type Status Date Reported Comments Source penicillin Assertion Rash Moderate Drug allergy Active [facility] Keflex Assertion Rash Drug allergy Active [facility] sulfa drugs Assertion Rash Drug allergy Active [facility]
--- OUTSIDE RECORDS SUMMARY | 2003-05-24 19:00 | XMS_ITS | Continuity of Care Document ---
Author Name [facility] Address [address] [place] [address] [facility] Care Team Providers Care Ceramic Coater Machine Name Role Phone [facility] Unavailable Unavailable Allergies, Adverse Reactions, Alerts Substance Category Reaction Severity Reaction type Status Date Reported Comments Source penicillin Assertion Rash Moderate Drug allergy Active [facility] Keflex Assertion Rash Drug allergy Active [facility] sulfa drugs Assertion Rash Drug allergy Active [facility]
--- OUTSIDE RECORDS SUMMARY | 2010-03-29 10:00 | XMS_ITS | Continuity of Care Document ---
Author Organization [facility] Address [address] [place] [address] [address] [place] [address] Phone Care Team Providers Care Pipe Installer Name Role Phone Josiah Tamez Unavailable Unavailable Procedures Procedure Date Office/outpatient Visit, Est Office/outpatient Visit, Est Office/outpatient Visit, Est Advance Directives Directive Yes / No Effective Date File Name No Information Encounters Encounter Description Practice Location Reason(s) For Visit Diagnoses Date Provider Providers Copied on Encounter Office/outpat ient Visit, [facility] [place], [address] [place] [address] [address], [place], [place], [id number], tel:[phone] [facility] No Information 5-201 0 Dashawn Rahman. [address] , [address], [place], [place], [facility] [place], . tel:[phone] Office/outpat ient Visit, [facility] [place], [address] [place] [address] [address], [place], [place], [id number], [place] tel:[phone] [facility] No Information 4-200 9 Dashawn Rahman. [address] , [address], [place], [place], [facility] [place], . tel:[phone] Office/outpat ient Visit, [facility] [place], [address] [place] [address] [address], [place], [place], [id number], tel:[phone] SEC [facility] No Information Jan-200 7 Tayoashlee Josiah. [address] , [address], [place], [address], [place]. tel:[phone] Family History Family Member Type Diagnosis Age At Onset No Information Payers Payer name Insurance type Covered libertarian ID Authoriza domoniquemal(s) [facility] Out Of State [id number] Social History Type Description Quantity Date Captured Comments Sex Female Smoking Status No Information Chief Complaint And Reason For Visit No Information Reason For Referral Reason For Referral No Information History Of Present Illness Encounter Date Complaint History Of Prese nt Illness No Information Functional Status Date Functional Assessmen t No Information Instructions Date Instruction Additional Infor mation No Information Assessments Type Assessment Date No Information Patient Care Teams Name Effective Dates (start - stop) Status Members No Information
--- OUTSIDE RECORDS SUMMARY | 2010-03-29 10:00 | XMS_ITS | Continuity of Care Document ---
Author Organization Located within [facility] Address [address] [place] [address] [address] [place] [address] Phone Care Team Providers Care Community Service Representative Name Role Phone Josiah Tamez Unavailable Unavailable Procedures Procedure Date Office/outpatient Visit, Est Office/outpatient Visit, Est Office/outpatient Visit, Est Advance Directives Directive Yes / No Effective Date File Name No Information Encounters Encounter Description Practice Location Reason(s) For Visit Diagnoses Date Provider Providers Copied on Encounter Office/outpat ient Visit, [facility] [place], [address] [place] [address] [address], [place], [place], [id number], tel:[phone] SEC [facility] No Information 5-201 0 Dashawn Rahman. [address] , [address], [place], [place], [facility], . tel:[phone] Office/outpat ient Visit, [facility] [place], [address] [place] [address] [address], [place], [place], [id number], [place] tel:[phone] [facility] No Information 4-200 9 Dashawn Rahman. [address], [place], [place], [facility], . tel:[phone] Office/outpat ient Visit, [facility] [place], [address] [place] [address] [address], [place], [place], [id number], tel:[phone] SEC [facility] No Information Jan-200 7 Tayoashlee Josiah. [address] , [address], [place], [address], [place]. tel:[phone] Family History Family Member Type Diagnosis Age At Onset No Information Payers Payer name Insurance type Covered libertarian ID Authoriza domoniquemal(s) [facility] Out Of State [id number] Social History Type Description Quantity Date Captured [...]
--- NOTE | ~2025-01-12 | XR_ITS ---
EXAMINATION: XR chest 2V 01/12/2025 19:11 INDICATION: Chest tightness PROCEDURE: 2 view chest COMPARISON: Comparison to multiple prior studies sequentially, with oldest reviewed study dated 05/21/2016. FINDINGS: The lungs are clear. The cardiomediastinal silhouette is within normal limits. There are no pleural effusions. There is no pneumothorax suspected. Pacemaker leads are stable. IMPRESSION: 1: NO ACUTE CARDIOPULMONARY DISEASE. Reviewed, dictated and finalized at location [facility].
--- OUTSIDE RECORDS SUMMARY | 2025-01-12 18:49 | XMS_ITS | Encounter Summary ---
Author Organization [facility] Healthcare Address [address] [place] [address] Care Team Providers Care Java Development Manager Name Role Phone Luarent Coleman MD Primary Care Provider [phone] Maggie Butler RN Unavailable Unavaila Kesha Pate RN Unavailable Unavailable Encounter Details Date Type Department Care Team (Late st Contact Info) Description 05/04/2017 Orders Only [facility] [place] Health Information Management [address] [place] [address] Scanning, Provider Social History Tobacco Use Types Packs/Day Years Used Date Smoking Tobacco: Never Smokeless Tobacco: Never Alcohol Use Standard Drinks/Week Comments Yes 0 (1 standard drink = 0.6 oz pur e alcohol) Comments Unknown Sex and Gender Information Value Date Recorded Sex Assigned at Not on file Legal Sex Female 2:35 AM PAN RECLAIM 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
--- OUTSIDE RECORDS SUMMARY | 2025-01-12 18:49 | XMS_ITS | Encounter Summary ---
Author Organization [facility] Healthcare Address [address] [place] [address] Care Team Providers Care Botany Teacher Name Role Phone Laurent Coleman MD Primary Care Provider + [phone] Maggie Butler RN Unavailable Unavaila Kesha Pate RN Unavailable Unavailable Encounter Details Date Type Department Care Team (Late st Contact Info) Description 09/19/2022 Orders Only [facility] [place] Information Management [address] [place] [address] Scanning, Provider Social History Tobacco Use Types Packs/Day Years Used Date Smoking Tobacco: Never Smokeless Tobacco: Never Alcohol Use Standard Drinks/Week Comments Yes 0 (1 standard drink = 0.6 oz pur e alcohol) AUDIT-C Answer Date Recorded Q1: How often do you have a drink containing alc ohol? Monthly or less 06/16/2022 Q2: How many drinks containi ng alcohol do you have on a typical day when you are drinking? 1 or 2 06/16/2022 Q3: How often do you have si x or more drinks on one occasion? Never 06/16/2022 Comments Unknown Sex and Gender Information Value Date Recorded Sex Assigned at Not on file Legal Sex Female 2:35 AM SUPERVISOR INTERNATIONAL RESERVATIONS Gender Identity Not on file Sexual Orientation Not on file documented as of this encounter Plan of Treatment Not on file documented as of this encounter Procedures Procedure Name Priority Date/Time Associated Diagnosis Comments SCAN - RADIOLOGY/IMAGING 09/19/2022 documented in this encounter Results * SCAN - RADIOLOGY/IMAGING (09/19/2022) Anatomical Region Laterality Modality Other us Provider Scanning Final Result documented in this encounter Visit Diagnoses Not on filedocumented in this encounter Additional Health Concerns Infection Onset Date Last Indicated Resolved Time COVID: Suspected 08/21/2023 08/21/2023 08/21/2023 2:39 PM CDT documented as of this encounter Care Teams Botany Teacher Relationship Specialty Start Date End Date Laurent Coleman MD PCP - General 08/22/16 Maggie Butler, needle board repairer Failure Coordinator 07/07/23 Kesha Kitchen RN Heart Failure Coordinator 08/24/23 documented as of this encounter
--- OUTSIDE RECORDS SUMMARY | 2025-01-12 18:49 | XMS_ITS | Clinical Summary ---
Author Organization [facility] Address [address] [place] [address] Care Team Providers Care Senior Support Analyst Name Role Phone Laurent Coleman MD Primary Care Provider [phone] Immunizations Immunization Administration Dates Next Due Covid-19, Mrna, Lnp-s, Pf, 30 Mcg/0.3 Ml Dose (P atulzer) 04/12/2021 Social History Tobacco Use Types Packs/Day Years Used Date Smoking Tobacco: Never Assessed Comments No Sex and Gender Information Value Date Recorded Sex Assigned at Not on file Legal Sex Female 12:52 PM AFTER SCHOOL CAREGIVER Gender Identity Not on file Sexual Orientation [...] Procedure Name Priority Date/Time Associated Diagnosis Comments [facility] SCREENING BILATERAL DIGITAL W CAD W CONTRERAS Routine 04/30/2024 9:45 AM AFTER SCHOOL CAREGIVER Visit for screening mammogram [facility] BONE DENSITOMETRY AXIAL SKELETON Routine 04/21/2023 11:21 AM AFTER SCHOOL CAREGIVER Menopausal and postmenopausal disorder Postmenopause from Last 3 Months or Most Recently Relevant to Health Maintenance Results * [facility] SCREENING BILATERAL DIGITAL W CAD W CONTRERAS (04/30/2024 9:45 AM AFTER SCHOOL CAREGIVER) Anatomical Region Laterality Modality breast Bilateral Mammography 04/30/2024 10:0 5 AM AFTER SCHOOL CAREGIVER Narrative 05/02/2024 6:47 AM AFTER SCHOOL CAREGIVER - [facility] SCREENING BILATERAL DIGITAL W CAD [...] is made to exams dated: 04/23/2023 [facility], 04/14/2022 [facility], and 03/05/2021 [facility]. BREAST TISSUE:There are scattered areas of fibroglandular [...] signed by: Ting Daniel M.D. ll/:05/01/2024 20:36:00 Geriatric Social Worker(s): RT Luis(R)(M), [facility] letter sent: Normal Exam Reading location: [place] Mammogram BI-RADS: Category 1: Negative Procedure Note Ting Daniel MD - 05/02/2024 - [facility] SCREENING BILATERAL DIGITAL W CAD W CONTRERAS BILATERAL DIGITAL SCREENING MAMMOGRAM 3D/2D WITH CAD WITH MEDIOLATERAL OBLIQUE CRANIOCAUDAL: 04/30/2024 The study was acquired using digital technology and interpreted from soft copy. Current study was also evaluated with Sernova version 7.2. 2D digital mammographic views, as well as 3D digital tomosynthesis were performed in the CC and MLO projections. CLINICAL: Routine screening. Patient has no complaints. Pacemaker left chest. No personal history of cancer. No family history of breast cancer. COMPARISONS: Comparison is made to exams dated: 04/23/2023 [facility], 04/14/2022 [facility], and 03/05/2021 [facility]. BREAST TISSUE:There are scattered areas of fibroglandular [...] signed by: Ting Daniel M.D. ll/:05/01/2024 20:36:00 Geriatric Social Worker(s): RT Luis(R)(M), [facility] letter sent: Normal Exam Reading location: [place] Mammogram BI-RADS: Category 1: Negative us Laurent F Schueler MD IMG MAMMO ORDERABLES Final Re sult * [facility] BONE DENSITOMETRY AXIAL SKELETON (04/21/2023 11:21 AM AFTER SCHOOL CAREGIVER) Anatomical Region Laterality Modality BODY N/A Computed Radiogr aphy 04/21/2023 12:0 8 PM AFTER SCHOOL CAREGIVER Impressions 04/21/2023 12:10 PM AFTER SCHOOL CAREGIVER IMPRESSION: Low bone mass REFERENCE: Bone mineral [...] of Osteoporosis (http://www.nof.org/professionals/clinical-guidelines) Narrative 04/21/2023 12:10 PM AFTER SCHOOL CAREGIVER EXAM DESCRIPTION: [facility] BONE DENSITOMETRY AXIAL SKELETON REASON FOR STUDY: 67 y/o year old F with given history of: Postmenopausal status. Patient took Boniva, stopping 5 years ago. Patient takes vitamin-D, multivitamin and calcium. Drying Supervisor/Model: ForceManager (S/N [id number]) CLINICAL INFORMATION: Current height: 67 inches Maximum [...] Nay Villegas M.D. TW: TW Report ID: [id number] Reading Location: [place] [address] Procedure Note Nay Villegas MD - 04/21/2023 EXAM DESCRIPTION: [facility] BONE DENSITOMETRY AXIAL SKELETON REASON FOR STUDY: 67 y/o year old F with given history of: Postmenopausal status. Patient took Boniva, stopping 5 years ago. Patient takes vitamin-D, multivitamin and calcium. Drying Supervisor/Model: ForceManager (S/N [id number]) CLINICAL INFORMATION: Current height: 67 inches Maximum [...] Nay Villegas M.D. TW: TW Report ID: [id number] Reading Location: [place] [address] IMPRESSION: Low bone mass REFERENCE: Bone mineral [...] Treatment of Osteoporosis (http://www.nof.org/professionals/clinical-guidelines) us Viviana Bennett GROUNDSKEEPING YARDMAN, COOK HELPER DESSERT IMG DEXA ORDERABLES F inal Result from Last 3 Months or Most Recently Relevant to Health Maintenance Insurance MEDICARE C [employer] Care Teams Senior Support Analyst Relationship Specialty Start Date End Date Laurent Coleman MD [address] [place] [address] PCP - General Family Medicine 04/21/23
--- OUTSIDE RECORDS SUMMARY | 2025-01-12 18:49 | XMS_ITS | Encounter Summary ---
Author Organization [facility] Address [address] [facility] [address] [place] [id number] Care Team Providers Care Sand System Operator Name Role Phone Laurent Coleman MD Primary Care Provider + [phone] Laurent Coleman MD Primary Care Provider + [phone] Maggie Butler RN Unavailable Unavaila Kesha Pate RN Unavailable Unavailable Encounter Details Date Type Department Care Team (Late st Contact Info) Description 05/29/2016 Orders Only [facility] ProviderJess MD [address] [place] [address] Social History Tobacco Use Types Packs/Day Years Used Date Smoking Tobacco: Never Alcohol Use Standard Drinks/Week Comments Yes 0 (1 standard drink = 0.6 oz pur e alcohol) Comments Unknown Sex and Gender Information Value Date Recorded Sex Assigned at Not on file Legal Sex Female 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
--- OUTSIDE RECORDS SUMMARY | 2025-01-12 18:49 | XMS_ITS | Encounter Summary ---
Author Organization [facility] Healthcare Address [address] [place] [address] Care Team Providers Care Manager Eligibility Name Role Phone Laurent Coleman MD Primary Care Provider + [phone] Maggie Butler RN Unavailable Unavaila Kesha Pate RN Unavailable Unavailable Encounter Details Date Type Department Care Team (Late st Contact Info) Description 11/28/2024 Results Follow-Up [facility] Cardiology [address] [place] [phone] [place] [address] [place] [address] [facility] [address] [facility] [address] [place] [address] [place] MPI SPECT (Rest and/or Stress) Multiple [...] on file Legal Sex Female 2:35 AM DIVORCE MEDIATOR Gender Identity Not on file Sexual Orientation Not on file documented as of this encounter Plan of Treatment Not on file documented as of this encounter Visit Diagnoses Not on filedocumented in this encounter Care Teams Manager Eligibility Relationship Specialty Start Date End Date Laurent Coleman MD PCP - General 08/22/16 Maggie Butler, stage set up worker Failure Coordinator 07/07/23 Kesha Kitchen RN Heart Failure Coordinator 08/24/23 documented as of this encounter
--- OUTSIDE RECORDS SUMMARY | 2025-01-12 18:49 | XMS_ITS | Clinical Summary ---
Author Organization [facility] [address] Address [address] [place] [address] Care Team Providers Care Deodorizer Operator Name Role Phone Laurent Coleman MD Primary Care Provider + [phone] Maggie Butler RN Unavailable Unavaila Kesha Pate [...] TABLET DAILY 90 tablet 2 4 Active Jardiance 10 mg tablet TAKE 1 TABLET DAILY 90 tablet 3 5 Active spironolactone (ALDACTONE) 25 mg tablet TAKE 1 TABLET DAILY 90 tablet 3 5 Active losartan (COZAAR) 25 mg tablet TAKE 1 TABLET DAILY 90 tablet 3 5 Active atorvastatin (LIPITOR) 40 mg tablet TAKE 1 TABLET DAILY 90 tablet 1 5 Active carvediloL (COREG) 6.25 mg tablet TAKE 1 TABLET TWICE DAILY WITH MEALS 180 tablet 1 5 Active Active Problems Problem Noted Date [...] (06/20/2022): Added automatically from request for surgery [id number] Chronic anticoagulation 04/03/2022 Hip pain 01/10/2022 Mixed hyperlipidemia 05/02/2021 At risk for amiodarone toxicity with halfway u se 05/02/2021 Persistent atrial fibrillation 03/01/2021 [...] loss 06/15/2018 Coronary artery disease invo lving [place] coronary artery of [place] heart without angina 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 [...] Type Department Care Team Description 12/02/2024 Telephone [facility] Cardiology [address] [facility] [address] [place] [address] Chica Stockton MD 11/28/2024 Results Follow-Up [facility] Cardiology [address] [facility] [address] [place] [address] Chica Stockton MD NM MPI SPECT (Rest and/or Stress) Multiple Studies 11/23/2024 7:45 AM CDT Ancillary Procedure [facility] Cardiology [address] [place] [address] Left bundle branch block (LBBB); Regional wall motion abnormality of heart; ROMERO (dyspnea on exertion) 11/19/2024 Orders Only [facility] Cardiology [address] [facility] [address] [place] [address] Hadley Paredes MD 11/08/2024 Telephone [facility] Cardiology [address] [place] [address] Chica Stockton MD 11/08/2024 Results Follow-Up [facility] Cardiology [address] [facility] [address] [address] Chica Stockton MD Transthoracic Echo (TTE) Complete W Doppler/CF 11/03/2024 8:15 AM CDT Ancillary Procedure [facility] Cardiology [address] [place] [id number] Coronary artery disease involving [place] coronary artery of [place] heart without angina pectoris; HFrEF (heart failure with reduced ejection fraction) (HCC); Nonischemic cardiomyopathy (HCC) from Last 3 Months Immunizations Immunization Administration [...] on file Legal Sex Female 2:35 AM STEWARD/[employer]EWARD[employer]RO[employer] D[employer] Gender Identity Not on file Sexual Orientation [...] 01/12/2024, 06/08/2023, 08/26/2022 Influenza Vaccine (#1) 2025 4, 02/26/2023, 02/19/2021, Additional history exists Osteoporosis Screening-Bone Density Scan 04/21/2025 04/21/2023, 04/21/2023 Breast Cancer Screening-Mammogram 04/30/2025 04/30/2024, 04/30/2024, 04/23/2023, Additional history exists Medical Devices Implanted Type Area Assistant Maintenance Manager Device Identifier Shelf Expiration Date Model / Serial / Lot [employer] Vascade Mvp 6-12fr Venous Closure [id number] - [id number] Implanted:Qty : 1 on 06/08/2023 by Anjel Bateman MD at [facility] Collagen Right: Femoral Vein [employer] 03/02/2025 [id number] C-10U / / [id number] [employer] Vascade Mvp 6-12fr Venous Closure [id number] - [id number] Implanted:Qty : 1 on 06/08/2023 by Anjel Bateman MD at [facility] Collagen Right: Femoral Vein [employer] 09/02/2024 800-612 C-10U / / [id number] [employer] Tendril Sts 6fr 58cm Is-1 Connector Active Fixation Bipolar Soft 2088tc/58 - [id number] - [id number] Implanted:Qty : 1 on 07/30/2022 by Anjel Bateman MD at [facility] Lead [employer] [id number] 04/23/2025 2088TC/ 58 / [id number] / [employer] Quartet 4.7fr 86cm Quadripolar Is-4 Llll Connector 8 Curve Low 1456q/86 - [id number] - [id number] Implanted:Qty : 1 on 07/30/2022 by Anjel Bateman MD at [facility] Lead [employer] [id number] 01/22/2025 1456Q/8 6 / [id number] 70 / [employer] Tendril Sts 6fr 52cm Is-1 Connector Active Fixation Bipolar Soft 2088tc/52 - [id number] - [id number] Implanted:Qty : 1 on 07/30/2022 by Anjel Bateman MD at [facility] Lead Right: Atrial Appendage [employer] [id number] 05/24/20252087TC/ 52 / [id number] / [employer] Pacemaker Quadra Allure Mp Rf Sludge Control Operator-P Mri [id number] - [id number] - [id number] Implanted:Qty : 1 on 07/30/2022 by Anjel Bateman MD at [facility] Pacemaker Left: Infraclavicular Anterior Chest Wall [employer] [id number] 01/23/2024 [id number] / [id number] / Procedures Procedure Name Priority Date/Time Associated Diagnosis Comments NM MPI SPECT (REST AND/OR STRESS) MULTIPLE STUDIES Schedule Routine, Read Routine (OP Routine) 11/23/2024 10:10 AM CDT Left bundle branch block (LBBB) Regional wall motion abnormality of heart ROMERO (dyspnea on exertion) DEVICE CHECK - REMOTE Routine 11/19/2024 12:38 AM CDT TRANSTHORACIC ECHO (TTE) COMPLETE W DOPPLER/CF WO CONTRAST Routine 11/03/2024 9:01 AM CDT Coronary artery disease involving [place] coronary artery of [place] heart without angina pectoris HFrEF (heart failure with reduced ejection fraction) (HCC) Nonischemic cardiomyopathy (HCC) from Last 3 Months Results * NM MPI SPECT (Rest and/or Stress) Multiple Studies (11/23/2024 10:10 AM CDT) Anatomical Region Laterality Modality Body N/A Nuclear Medicine 11/23/2024 8:33 AM CDT Narrative 11/24/2024 5:46 PM CDT [facility] Cardiology [address], [place] [address] [address], [place] [address] [address], [place] [address] P:[phone] P:[phone] MPI Imaging Report Patient Name: HEATHER ALEXANDRE E : 1955 Study Date: 11/23/2024 8:33:50 AM Gender: F Tech: [facility] Location: [facility] Provider: CHICA STOCKTON Height(Cm): 170.2 BSA: Weight(Kg): 100.6 BMI: 34.73 Order Provider: CHICA STOCKTON PHYSICIAN: Primary Care Physician: Dr. Coleman. [facility] Physician: Chandra Stockton M.D. Stress Supervision: Guido [...] SPECT. Electronically Signed By: Guido Tinsley MD, [facility] 11/23/2024 12:22:32 PM CDT Electronically Signed By: Iker Ferro MD, [facility] 11/24/2024 4:49:12 PM CDT Procedure Note Iker Ferro MD - 11/24/2024 [facility] Cardiology [address] [facility] [address], [place] [address] [address] [facility] [address], [place] [address] [address] [place] [address] P:[phone] P:[phone] MPI Imaging Report Patient Name: HEATHER ALEXANDRE E : 1955 Study Date: 11/23/2024 8:33:50 AM Gender: F Tech: [facility] Location: [facility] Provider: CHICA STOCKTON Height(Cm): 170.2 BSA: Weight(Kg): 100.6 BMI: 34.73 Order Provider: CHICA STOCKTON PHYSICIAN: Primary Care Physician: Dr. Coleman. [facility] Physician: Chandra Stockton M.D. Stress Supervision: Guido Tinsley M.D., F.A.C.C. Stress Interpreting Physician: Guido Tinsley M.D., F.A.C.C. Image Interpreting Physician: Iker Ferro M.D.,Brittney. PROCEDURES: [...] SPECT. Electronically Signed By: Guido Tinsley MD, [facility] 11/23/2024 12:22:32 PM CDT Electronically Signed By: Iker Ferro MD, [facility] 11/24/2024 4:49:12 PM CDT us Chica Stockton MD [facility] [place] PROCEDURES Final R esult * DEVICE CHECK - REMOTE (11/19/2024 12:38 AM CDT) Anatomical Region Laterality Modality Other 11/19/2024 12:3 8 AM CDT Narrative 12/20/2024 10:39 AM CDT Interpretation Summary: Battery and Leads (BL) Normal battery parameters --- 5.4 years remaining (this is an estimate based on prior usage) Capture threshold safety margin not met --- Atrial threshold is 1.5V@1ms and output is set at 1.5V@1ms Presenting Rhythm (HI) Atrial Pacing-BiVentricular Pacing (AP-BiVP) --- rate 70 Arrhythmic events (AE) Paroxysmal atrial fibrillation and/or flutter Atrial fibrillation and/or flutter with controlled ventricular rate Anticoagulation (AC) Patient on anticoagulant therapy Patient prescribed Rivaroxaban (Xarelto) Transmission Information (TI) Device Summary Report Procedure Note Hadley Paredes MD - 12/20/2024 Interpretation Summary: Battery and Leads (BL) Normal battery parameters --- 5.4 years remaining (this is an estimatebased on prior usage) Capture threshold safety margin not met --- Atrial threshold is 1.5V@1msand output is set at 1.5V@1ms Presenting Rhythm (HI) Atrial Pacing-BiVentricular Pacing (AP-BiVP) --- rate 70 Arrhythmic events (AE) Paroxysmal atrial fibrillation and/or flutter Atrial fibrillation and/or flutter with controlled ventricular rate Anticoagulation (AC) Patient on anticoagulant therapy Patient prescribed Rivaroxaban (Xarelto) Transmission Information (TI) Device Summary Report us Hadley Paredes MD [facility] PRO CEDURES Final Result * TRANSTHORACIC ECHO (TTE) COMPLETE W DOPPLER/CF WO CONTRAST (11/03/2024 9:01 AM CDT) Estimated EF 55 % CONS SCIMAGE EF Mod BP 55 % CONS SCIMAGE Anatomical Region Laterality Modality Ultrasound 11/03/2024 8:09 AM CDT Narrative 11/03/2024 12:57 PM CDT [facility] Cardiology [address], [place] [address] [address], [place] [address] P:[phone] P:[phone] Echocardiographic Report Patient Name: HEATHER ALEXANDRE E : 1955 Study Date: 11/03/2024 8:09:54 AM Gender: F Tech: JORGITO Location: [place] Ref Provider: CHICA STOCKTON Height(Cm): 170 BSA: 2.18 Weight(Kg): 100.2 Heart Rate: 70 BP: 102 / 70 Quality: Good Order Provider: CHICA STOCKTON PROCEDURES: Echocardiographic Report: Transthoracic echocardiogram with complete 2D, M-Mode, and color Doppler examination. With Strain Analysis. INDICATIONS: I25.10 Atherosclerotic heart disease of [place] coronary artery without angina pectoris, I50.20 Unspecified [...] FINDINGS: Interpretation Site: Exam was interpreted at [facility]. Left Ventricle: Normal left ventricular wall thickness. [...] Procedure Note Chica Stockton MD - 11/03/2024 [facility] Cardiology [address] [facility] [address], [place] [address] [address] [facility] [address], [place], [place] [address] P:[phone] P:[phone] Echocardiographic Report Patient Name: HEATHER ALEXANDRE E : 1955 Study Date: 11/03/2024 8:09:54 AM Gender: F Tech: [facility] Location: [facility] Provider: CHICA STOCKTON Height(Cm): 170 BSA: 2.18 Weight(Kg): 100.2 Heart Rate: 70 BP: 102 / 70 Quality: Good Order Provider: CHICA STOCKTON PROCEDURES: Echocardiographic Report: Transthoracic echocardiogram with complete 2D, M-Mode, and color Dopplerexamination. With Strain Analysis. INDICATIONS: I25.10 Atherosclerotic heart disease of [place] coronary artery withoutangina pectoris, I50.20 Unspecified systolic [...] FINDINGS: Interpretation Site: Exam was interpreted at [facility]. Left Ventricle: Normal left ventricular wall thickness. [...] Final Result from Last 3 Months Insurance [facility] MEDICARE [facility] MEDICARE T MEDICARE Advance Directives For more information, please contact: [phone] * Full Code (Latest Code Status on File) Date Activated Date Inactivated Comments 07/30/2022 11:05 AM 07/31/2022 4:22 PM Care Teams Deodorizer Operator Relationship Specialty Start Date End Date Laurent Coleman MD PCP - General 08/22/16 Maggie Butler, utilities and maintenance supervisor Failure Coordinator 07/07/23 Kesha Kitchen RN Heart Failure Coordinator 08/24/23
[2025-01-12 18:54] VITALS: BP 139/77; PULSE 70; RESP 20; TEMP 36.4; O2SAT 97
--- NOTE | 2025-01-12 18:54 | ECG_ITS ---
Test Date: 2025-01-12 18:55:44 Measurements Intervals [place] Rate: 69 P: 266 MO: 216 QRS: 133 QRSD: 123 T: 117 QT: 440 QTc: 475 Interpretive Statements ELECTRONIC ATRIAL PACEMAKER ELECTRONIC VENTRICULAR PACEMAKER BASELINE ARTIFACT- I, II, III, AVR, AVL, AVF NO SIGNIFICANT CHANGE ATYPICAL ECG No previous ECG available for comparison Electronically Signed On 01-13-2025 06:21:14 CDT by Ace Santos D.O.
[2025-01-12 19:07] LABS: Hematocrit 44.5 % (37.0-47.0); Hemoglobin 14.3 g/dL (12.0-15.0); Immature Granulocyte Percent A 1.0 % (0-0.5); Lymphocytes Absolute Auto 2.05 K/mm3 (0.9-3.2); Mean Corpuscular HGB Conc 32.1 g/dl (32-36); Mean Corpuscular Hemoglobin 30.8 pg (26-34); Mean Corpuscular Volume 95.7 fl (80-100); Nucleated Red Blood Cells Absolute Auto 0.000 K/mm3 (0.0-0.012); Nucleated Red Blood Cells Perc 0.0 % (0.0-0.2); Platelet Count Result 259 k/mm3 (150-375); Red Blood Count 4.65 M/mm3 (4.2-5.4); White Blood Count 6.0 K/mm3 (4.5-10.0)
[2025-01-12] MEDS: ASPIRIN 81 MG CHEWABLE TABLET 324 MG PO (19:15)
[2025-01-12 19:23] LABS: Alanine Aminotransferase 28 U/L (6-35); Albumin Level 4.5 g/dL (3.5-5.1); Alkaline Phosphatase 76 U/L (38-126); Anion Gap 8 mmol/L (4-12); Aspartate Amino Transferase 30 U/L (14-36); Bilirubin,Total 0.8 mg/dL (0.2-1.3); Blood Urea Nitrogen 12 mg/dL (7-17); Calcium 9.8 mg/dL (8.4-10.2); Carbon Dioxide 30 mmol/L (22-30); Chloride 101 mmol/L (98-107); Estimated CRCL calculation 61 ml/min; Estimated Glomerular Filt Rate 58; Glucose 112 mg/dL (65-110); Lipase 100 U/L (23-300); Potassium 4.2 mmol/L (3.4-5.0); Sodium 139 mmol/L (137-145); Total Protein 7.8 g/dL (6.3-8.2)
[2025-01-12 19:25] LABS: INR 1.5; Prothrombin Time 18.0 Seconds (11.1-14.7)
[2025-01-12 19:26] LABS: Partial Thromboplastin Time 38.8 Seconds (22.3-36.8)
[2025-01-12 19:30] LABS: Troponin I < 0.012 ng/mL (0.000-0.034)
--- NOTE | 2025-01-12 19:54 | ED.CHESTPAIN ---
HPI - Chest Pain General Chief Complaint: Chest Pain Stated Complaint: left jaw pain x 4 days, chest pain today Time Seen by Provider: 01/12/25 19:08 History of Present Illness HPI narrative: Patient is a 69-year-old female who presents to the emergency department this evening complaining of left-sided chest pain which started approximately 3-4 hours ago. Patient states that initially she started having left jaw pain 4 days ago which minimally responded to wjkf-mtz-juvmdrs medications such as Tylenol. She did go see her dentist 2 days ago and was informed that she has no dental concerns. Today when the chest pain developed, patient decided to come to the ED for further evaluation due to concern that the jaw pain she was having was cardiac in nature. Denies any history of coronary artery disease but does admit to history of heart failure and does follow-up with Dr. Avilez as her cardiolgist. Related Data Home Medications ?Medication ?Instructions ?Recorded ?Confirmed ?Last Taken ?Type rivaroxaban 20 mg tablet (Xarelto) 20 mg PO DAILY 10/29/20 12/09/24 12/05/24 History calcium 300 mg-D3 20 mcg-magnesium 1 tablet PO DAILY 02/13/22 12/09/24 12/08/24 History 25 mg-coppr 0.5 iw-pnho-cuuk tablet (Caltrate-D3 Plus Minerals) atorvastatin 40 mg tablet 40 mg PO DAILY 09/19/22 12/09/24 12/08/24 History carvedilol 6.25 mg tablet 6.25 mg PO BID 01/15/23 12/09/24 12/09/24 History empagliflozin 10 mg tablet 10 mg PO DAILY 09/17/23 12/09/24 12/08/24 History (Jardiance) losartan 25 mg tablet 25 mg PO DAILY 09/17/23 12/09/24 12/08/24 History spironolactone 25 mg tablet 25 mg PO DAILY 09/17/23 12/09/24 12/08/24 History Allergies Allergy/AdvReac Type Severity Reaction Status Date / Time ampicillin Allergy Unknown Unknown Verified 12/09/24 08:28 cephalexin Allergy Unknown Unknown Verified 12/09/24 08:28 ciprofloxacin Allergy Unknown Unknown Verified 12/09/24 08:28 Penicillins Allergy Unknown Unknown Verified 12/09/24 08:28 Sulfa (Sulfonamide Allergy Unknown Unknown Verified 12/09/24 08:28 Antibiotics) metoprolol AdvReac Intermediate lethargic Verified 12/09/24 08:28 Review of Systems Review of Systems: All systems are reviewed and are negative unless stated otherwise in the HPI. [facility] Past Medical History Medical History TMIOTHY (obstructive sleep apnea) Pacemaker Cardiomyopathy CHF (congestive heart failure) EF 45-50% Obese Postprandial abdominal bloating Early satiety Peripheral arterial disease Depression Glucosuria Hematuria Frequency of micturition Incarcerated umbilical hernia H/O cardiac pacemaker Shortness of breath Screening for malignant neoplasm of breast CAD (coronary artery disease) LBBB (left bundle branch block) Atrial fibrillation Surgical History Surgical History Hx of cataract surgery Apr 2021 Family History Family History Mother Hypertension Family history of diabetes mellitus in first degree relative Family history of coronary artery disease Atrial fibrillation Grandparent Cerebrovascular accident Father Depression Sibling Atrial fibrillation Other Family history of malignant neoplasm Social History Social History Smoking status: Never smoker Second hand tobacco smoke exposure: No Alcohol intake: never Alcohol use details: previous hx of 1-2 per year Substance use: never Substance use type: does not use Do You Feel Safe in your Home?: Yes Lack of Transportation: No Lack of Food: Never True Current Housing: I Have Housing Concerned About Future Housing: No Difficulty Paying Gas/Electric Bills: No Difficulty Paying for Meds: No Currently Unemployed: No Education: Associate Degree Difficulty w/ Childcare or Family Care: No Living arrangements: with family Occupation/Education: retired 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 HEENT: PERRL, no rhinorrhea, no post nasal drip, oropharynx clear. Neck: Trachea midline, no JVD, no lymphadenopathy. Cardiovascular: Regular rate and rhythm, no murmurs, rubs or gallops, no peripheral edema. Respiratory: Clear to auscultation bilaterally, no tachypnea, no wheezing, no rhonchi, no rubs, no respiratory distress. Abdomen: Soft, nontender, nondistended, no rebound, no guarding, no peritoneal signs. Musculoskeletal: No joint swelling or deformity, normal muscle tone. Skin: No rashes or petechia, no signs of infection. Psychiatric: Alert and oriented, normal behavior and judgment for situation. Neurological: Alert and oriented to person, place, and time. Follows all commands. No focal deficits, speech is clear and fluent. Course Vital Signs Vital signs: Vital Signs Temperature 97.5 F L 01/12/25 18:54 Pulse Rate 70 01/12/25 18:54 Respiratory Rate 20 01/12/25 18:54 Blood Pressure 139/77 01/12/25 18:54 Pulse Oximetry 97 01/12/25 18:54 Oxygen Delivery Room Air 01/12/25 18:54 Temperature 97.5 F L 01/12/25 18:54 Pulse Rate 70 01/12/25 18:54 Respiratory Rate 20 01/12/25 18:54 Blood Pressure 139/77 01/12/25 18:54 Pulse Oximetry 97 01/12/25 18:54 Oxygen Delivery Room Air 01/12/25 18:54 MDM - Chest Pain MDM Narrative Medical decision making narrative: The patient was evaluated by myself in the emergency department. History is obtained from patient who is an independent historian and physical exam was performed. External medical records were reviewed at this time. IV was established and pertinent tests were ordered. Patient was administered a full dose oral chewable aspirin. EKG was obtained which revealed a paced rhythm rate 69 beats per minute, good capture, negative Sgarbossa. EKG was independently interpreted by me and is currently pending official cardiology read. Laboratory results obtained revealing No acute process. Initial troponin negative. There hour troponin negative. Imaging studies obtained included CXR which was independently interpreted by me revealing no acute cardiopulmonary process, which is pending final radiology interpretation. Differential diagnosis considerations include acute coronary syndrome, TMJ disorder, dentalgia, acute stress reaction. Comorbidities impacting this visit include none. I have evaluated and discussed social determinants of health with the patient that could potentially impact subsequent diagnosis and treatment plans. On repeat assessment of the patient, reevaluation revealed that the patient is doing well and is in no acute distress. Patient symptoms have improved since she arrived to our emergency department. Repeat vital signs were all reviewed and noted to be stable. Differential diagnosis and treatment plan were discussed with the patient at bedside. Patient agrees with discussion and after shared medical decision making agrees with [admission/discharge]. All questions were answered to the patient's satisfaction. Patient will follow up with her PCP in 3-5 days. Patient was provided with strict return precautions and instructed to return to the emergency department if any new or worsening symptoms develop. The patient was discharged in stable condition. Lab Data 01/12/25 19:00 01/12/25 19:00 Labs: Lab Results 01/12/25 01/12/25 Range/Units 19:00 21:46 WBC 6.0 (4.5-10.0) K/mm3 RBC 4.65 (4.2-5.4) M/mm3 Hgb 14.3 (12.0-15.0) g/dL Hct 44.5 (37.0-47.0) % MCV 95.7 (80-100) fl MCH 30.8 (26-34) pg MCHC 32.1 (32-36) g/dl RDW 13.9 (11.5-14.5) % Plt Count 259 (150-375) k/mm3 MPV 9.7 (7.4-10.4) fl Immature Gran % (Auto) 1.0 H (0-0.5) % Neut % (Auto) 48.0 (45.5-73.1) % Lymph % (Auto) 34.1 (18.3-44.2) % Andrews % (Auto) 13.8 H (2.6-8.5) % Eos % (Auto) 2.3 (0-4.4) % Baso % (Auto) 0.8 (0.2-1.2) % Lymph # (Auto) 2.05 (0.9-3.2) K/mm3 Andrews # (Auto) 0.8 H (0.1-0.6) K/mm3 Eos # (Auto) 0.1 (0-0.3) K/mm3 Baso # (Auto) 0.1 (0.0-0.1) K/mm3 Abs Immat Gran (auto) 0.06 H (0.00-0.031) K/mm3 Absolute Neuts (auto) 2.9 (1.3-6.7) K/mm3 Absolute Nucleated RBC 0.000 (0.0-0.012) K/mm3 Nucleated RBC % 0.0 (0.0-0.2) % PT 18.0 H (11.1-14.7) Seconds INR 1.5 APTT 38.8 H (22.3-36.8) Seconds Sodium 139 (137-145) mmol/L Potassium 4.2 (3.4-5.0) mmol/L Chloride 101 (98-107) mmol/L Carbon Dioxide 30 (22-30) mmol/L Anion Gap 8 (4-12) mmol/L BUN 12 (7-17) mg/dL Creatinine 0.95 (0.7-1.0) mg/dL Estim Creat Clear Calc 61 ml/min Estimated GFR 58 L (59 - ) Glucose 112 H (65-110) mg/dL Calcium 9.8 (8.4-10.2) mg/dL Total Bilirubin 0.8 (0.2-1.3) mg/dL AST 30 (14-36) U/L ALT 28 (6-35) U/L Alkaline Phosphatase 76 (38-126) U/L Troponin I < 0.012 < 0.012 (0.000-0.034) ng/mL Total Protein 7.8 (6.3-8.2) g/dL Albumin 4.5 (3.5-5.1) g/dL Lipase 100 (23-300) U/L Discharge Plan Discharge Clinical Impression: Jaw pain Patient Disposition: Home Condition: Improved Instructions: Antibiotic Form, Temporomandibular Disorder (ED) Additional Instructions: Please follow-up with your family doctor within the next 3-5 days. Use the prescribed muscle relaxers as needed as this may help with your symptoms along with NSAIDs such as Advil/Aleve / ibuprofen. Return to the ED if any new or worsening symptoms develop. Patient Language: Urdu Prescriptions: New cyclobenzaprine 10 mg tablet 10 mg PO HS PRN (Reason: muscle spasm) Qty: 10 0RF No Action Caltrate-D3 Plus Minerals 300 mg-800 unit -25 mg-0.5 mg tablet 1 tablet PO DAILY Jardiance 10 mg tablet 10 mg PO DAILY spironolactone 25 mg tablet 25 mg PO DAILY losartan 25 mg tablet 25 mg PO DAILY Xarelto 20 mg Tablet 20 mg PO DAILY atorvastatin 40 mg tablet 40 mg PO DAILY Rx Instructions: TAKE 1 TABLET DAILY carvedilol 6.25 mg tablet 6.25 mg PO BID Follow-up/Referrals: Laurent Coleman MD [Primary Care Provider, Family Practice] - 3 Days Time of Disposition: 22:38
--- OUTSIDE RECORDS SUMMARY | 2025-01-12 20:12 | XMS_ITS | Encounter Summary ---
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
--- OUTSIDE RECORDS SUMMARY | 2025-01-12 20:12 | XMS_ITS | Encounter Summary ---
Author Organization [facility] Healthcare Address [address] [place] [id number] Care Team Providers Care Campus Rep Name Role Phone Laurent Coleman MD Primary Care Provider + [phone] Maggie Butler RN Unavailable Unavaila Kesha Pate RN Unavailable Unavailable Encounter Details Date Type Department Care Team (Late st Contact Info) Description 11/28/2024 Results Follow-Up [facility] Cardiology [address] [place] [id number] [place] [address] [place] [address] [facility] [address] [facility], [facility] [address] [place] [address] [place] MPI SPECT (Rest and/or Stress) Multiple [...] on file Legal Sex Female 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
--- OUTSIDE RECORDS SUMMARY | 2025-01-12 20:12 | XMS_ITS | Encounter Summary ---
Author Organization [facility] Address [address] [facility] [address] [place] [address] Care Team Providers Care Radiology Physician Assistant Name Role Phone Laurent Coleman MD Primary Care Provider + [phone] Laurent Coleman MD Primary Care Provider + [phone] Maggie Butler RN Unavailable Unavaila Kesha Pate RN Unavailable Unavailable Encounter Details Date Type Department Care Team (Late st Contact Info) Description 05/29/2016 Orders Only [facility] ProviderJess MD [address] [place] [address] Social History Tobacco Use Types Packs/Day Years Used Date Smoking Tobacco: Never Alcohol Use Standard Drinks/Week Comments Yes 0 (1 standard drink = 0.6 oz pur e alcohol) Comments Unknown Sex and Gender Information Value Date Recorded Sex Assigned at Not on file 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
--- OUTSIDE RECORDS SUMMARY | 2025-01-12 20:12 | XMS_ITS | Encounter Summary ---
Author Organization [facility] Healthcare Address [address] [place] [address] Care Team Providers Care Metal Control Coordinator Name Role Phone Laurent Coleman MD Primary Care Provider [phone] Maggie Butler RN Unavailable Unavaila Kesha Pate RN Unavailable Unavailable Encounter Details Date Type Department Care Team (Late st Contact Info) Description 05/04/2017 Orders Only [facility] [address] [place] [address] Scanning, Provider Social History Tobacco Use Types Packs/Day Years Used Date Smoking Tobacco: Never Smokeless Tobacco: Never Alcohol Use Standard Drinks/Week Comments Yes 0 (1 standard drink = 0.6 oz pur e alcohol) Comments Unknown Sex and Gender Information Value Date Recorded Sex Assigned at Not on file 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
--- OUTSIDE RECORDS SUMMARY | 2025-01-12 20:12 | XMS_ITS | Clinical Summary ---
Author Organization [facility] Address [address] [place] [address] Care Team Providers Care Assistant Womens Volleyball Coach Name Role Phone Laurent Coleman MD Primary Care Provider [phone] Immunizations Immunization Administration Dates Next Due Covid-19, Mrna, Lnp-s, Pf, 30 Mcg/0.3 Ml Dose (P atulzer) 04/12/2021 Social History Tobacco Use Types Packs/Day Years Used Date Smoking Tobacco: Never Assessed Comments No Sex and Gender Information Value Date Recorded Sex Assigned at Not on file Legal Sex Female 12:52 PM ELASTIC ASSEMBLER Gender Identity Not on file Sexual Orientation [...] Procedure Name Priority Date/Time Associated Diagnosis Comments [facility] SCREENING BILATERAL DIGITAL W CAD W CONTRERAS Routine 04/30/2024 9:45 AM ELASTIC ASSEMBLER Visit for screening mammogram [facility] BONE DENSITOMETRY AXIAL SKELETON Routine 04/21/2023 11:21 AM ELASTIC ASSEMBLER Menopausal and postmenopausal disorder Postmenopause from Last 3 Months or Most Recently Relevant to Health Maintenance Results * [facility] SCREENING BILATERAL DIGITAL W CAD W CONTRERAS (04/30/2024 9:45 AM ELASTIC ASSEMBLER) Anatomical Region Laterality Modality breast Bilateral Mammography 04/30/2024 10:0 5 AM ELASTIC ASSEMBLER Narrative 05/02/2024 6:47 AM ELASTIC ASSEMBLER - [facility] SCREENING BILATERAL DIGITAL W CAD [...] is made to exams dated: 04/23/2023 [facility], 04/14/2022 [facility], and 03/05/2021 [facility]. BREAST TISSUE:There are scattered areas of [...] signed by: Ting Daniel M.D. ll/:05/01/2024 20:36:00 Campus Administrative Assistant(s): RT Luis(R)(M), [facility] letter sent: Normal Exam Reading location: [place] Mammogram BI-RADS: Category 1: Negative Procedure Note Ting Daniel MD - 05/02/2024 - [facility] SCREENING BILATERAL DIGITAL W CAD W CONTRERAS BILATERAL DIGITAL SCREENING MAMMOGRAM 3D/2D WITH CAD WITH MEDIOLATERAL OBLIQUE CRANIOCAUDAL: 04/30/2024 The study was acquired using digital technology and interpreted from soft copy. Current study was also evaluated with Agrar33 version 7.2. 2D digital mammographic views, as well as 3D digital tomosynthesis were performed in the CC and MLO projections. CLINICAL: Routine screening. Patient has no complaints. Pacemaker left chest. No personal history of cancer. No family history of breast cancer. COMPARISONS: Comparison is made to exams dated: 04/23/2023 [facility], 04/14/2022 [facility], and 03/05/2021 [facility]. BREAST TISSUE:There are scattered areas of [...] signed by: Ting Daniel M.D. ll/:05/01/2024 20:36:00 Campus Administrative Assistant(s): RT Luis(R)(M), [facility] letter sent: Normal Exam Reading location: [place] Mammogram BI-RADS: Category 1: Negative us Laurent F Schueler MD IMG MAMMO ORDERABLES Final Re sult * [facility] BONE DENSITOMETRY AXIAL SKELETON (04/21/2023 11:21 AM ELASTIC ASSEMBLER) Anatomical Region Laterality Modality BODY N/A Computed Radiogr aphy 04/21/2023 12:0 8 PM ELASTIC ASSEMBLER Impressions 04/21/2023 12:10 PM ELASTIC ASSEMBLER IMPRESSION: Low bone mass REFERENCE: Bone mineral [...] of Osteoporosis (http://www.nof.org/professionals/clinical-guidelines) Narrative 04/21/2023 12:10 PM ELASTIC ASSEMBLER EXAM DESCRIPTION: [facility] BONE DENSITOMETRY AXIAL SKELETON REASON FOR STUDY: 67 y/o year old F with given history of: Postmenopausal status. Patient took Boniva, stopping 5 years ago. Patient takes vitamin-D, multivitamin and calcium. Cuff Turner/Model: [employer] (S/N [id number]) CLINICAL INFORMATION: Current height: 67 inches Maximum [...] Nay Villegas M.D. TW: TW Report ID: [id number] Reading Location: [place] [address] Procedure Note Nay Villegas MD - 04/21/2023 EXAM DESCRIPTION: [facility] BONE DENSITOMETRY AXIAL SKELETON REASON FOR STUDY: 67 y/o year old F with given history of: Postmenopausal status. Patient took Boniva, stopping 5 years ago. Patient takes vitamin-D, multivitamin and calcium. Cuff Turner/Model: [employer] (S/N [id number]) CLINICAL INFORMATION: Current height: 67 inches Maximum [...] Nay Villegas M.D. TW: TW Report ID: [id number] Reading Location: [place] [address] IMPRESSION: Low bone mass REFERENCE: Bone mineral [...] Treatment of Osteoporosis (http://www.nof.org/professionals/clinical-guidelines) us Viviana Bennett SCRIP CLERK, GUITAR REPAIRER IMG DEXA ORDERABLES F inal Result from Last 3 Months or Most Recently Relevant to Health Maintenance Insurance MEDICARE C [employer] Care Teams Assistant Womens Volleyball Coach Relationship Specialty Start Date End Date Laurent Coleman MD [address] [place] [address] PCP - General Family Medicine 04/21/23
--- NOTE | 2025-01-12 21:43 | ECG_ITS ---
Test Date: 2025-01-12 21:46:11 Measurements Intervals [place] Rate: 69 P: 263 SD: 223 QRS: 139 QRSD: 115 T: 66 QT: 428 QTc: 462 Interpretive Statements ELECTRONIC ATRIAL PACEMAKER ELECTRONIC VENTRICULAR PACEMAKER BASELINE ARTIFACT- I, II, III, AVR, AVL, AVF, V1 NO FURTHER INTERPRETATION IS POSSIBLE ATYPICAL ECG Compared to ECG 01/12/2025 18:55:44 No significant changes Electronically Signed On 01-13-2025 06:27:31 CDT by Ace Santos D.O.
[2025-01-12 22:24] LABS: Troponin I < 0.012 ng/mL (0.000-0.034)
[2025-01-12 23:05] VITALS: BP 120/65; PULSE 72; RESP 18; O2SAT 96
== END 2025-01-12 23:05 | disposition home or self-care (01) ==
PROVIDERS: Student in an Organized Health Care Education/Training Program; Emergency Provider Emergency Medicine; PCP Family Medicine
DX: R68.84 Jaw pain (principal); I42.9 Cardiomyopathy, unspecified; I50.9 Heart failure, unspecified; I48.91 Unspecified atrial fibrillation; I25.10 Atherosclerotic heart disease of native coronary artery without angina pectoris; I73.9 Peripheral vascular disease, unspecified; G47.33 Obstructive sleep apnea (adult) (pediatric); F32.A Depression, unspecified; Z95.0 Presence of cardiac pacemaker; Z98.49 Cataract extraction status, unspecified eye; Z79.84 Long term (current) use of oral hypoglycemic drugs; Z79.899 Other long term (current) drug therapy; Z79.01 Long term (current) use of anticoagulants
CPT/HCPCS: 36415; 71046; 80053; 83690; 84484; 85025; 85610; 85730; 93005; 99284; A9270